=== PATIENT | male | born 1965 | race Caucasian/White ===

== ENCOUNTER → 2016-08-22 | Outpatient (CLI) | payer OTHER ==
[~2016-08-22] MED LIST: ACET-1256 PO; CALC500C3 PO; CLC100 PO; CYAN100020 PO; FERR1TAB13 PO; FRRS300 PO; IBUP-1050 PO; IRON PO; OMEP40CA41 PO; PRLSR20 PO; PRT/20 PO; PRT40 PO; RANI300T2 PO; SUCR1TAB PO
[2016-08-22 13:33] LABS: BASO % 0.7 %; BASO ABS # 0.04 K/uL (0-0.2); COMPLETE YES; EOS % 5.3 %; HEMATOCRIT 43.5 % (42-52); IG% 0.2 %; LYMPH % 29.3 %; LYMPH ABS # 1.67 K/uL (1.2-3.4); MEAN CELL VOLUME 83.5 fL (80-100); MEAN CORPUSCULAR HGB CONC 33.6 g/dl (32-36); MEAN PLATELET VOLUME 11.9 fL (7.4-10.4); MONO % 9.1 %; NEUT % 55.4 %; PLATELET COUNT 243 K/uL (130-400); RED BLOOD COUNT 5.21 M/uL (4.7-6.1); WHITE BLOOD COUNT 5.69 K/uL (4.8-10.8)
[2016-08-22 14:46] LABS: FERRITIN 8.5 ng/ml (8.0-388.0)
== END | disposition home or self-care (01) ==
LOC: C.LABBC 09:19
PROVIDERS: ATTEND Internal Medicine
DX: D64.9 Anemia, unspecified (principal)

== ENCOUNTER → 2016-11-10 | Outpatient (CLI) | payer OTHER ==
[~2016-11-10] MED LIST changes: -CYAN100020 PO; -FERR1TAB13 PO; -FRRS300 PO; -IRON PO; -OMEP40CA41 PO; -PRT/20 PO; -PRT40 PO; -RANI300T2 PO; -SUCR1TAB PO
[2016-11-10 10:29] LABS: ALT/SGPT 30 U/L (12-78); BLOOD UREA NITROGEN 15 mg/dl (7-18); BUN/CREATININE RATIO 15.4 (10-20); CALCIUM 9.1 mg/dl (8.5-10.1); CARBON DIOXIDE 27 mmol/L (21-32); CHLORIDE 103 mmol/L (98-107); CREATININE 0.95 mg/dl (0.60-1.40); GLUCOSE 85 mg/dl (70-99); MAGNESIUM 2.2 mg/dl (1.8-2.4); POTASSIUM 3.8 mmol/L (3.5-5.1); SODIUM 138 mmol/L (136-145)
[2016-11-10 10:39] LABS: ALB/GLOB RATIO 1.1 (0.9-2); ALKALINE PHOSPHATASE 106 U/L (45-117); AST/SGOT 23 U/L (15-37); THYROID STIMULATING HORMONE 0.932 uIu/ml (0.300-4.500)
[2016-11-10 12:42] LABS: LYME DISEASE AB IGG NEG (NEG)
[2016-11-10 12:46] LABS: LYME DISEASE AB IGM NEG (NEG)
== END | disposition home or self-care (01) ==
LOC: C.LAB1850 08:57
PROVIDERS: ATTEND Internal Medicine
DX: R00.2 Palpitations (principal)

== ENCOUNTER 2016-11-29 15:26 | Inpatient (IN) | payer OTHER ==
[~2016-11-29] VITALS: Ht 182.9 cm; Wt 77.6 kg
[2016-11-29] MEDS ORDERED: ONDANSETRON INJ 2 MG/ML 2 ML VIAL IV STA (15:41)
[2016-11-29] MEDS ORDERED: SODIUM CHLORIDE 0.9% 1000ML 1,000 ML IV STA (15:41)
[2016-11-29] MEDS ORDERED: PANTOprazole INJ 80 MG in DEXTROSE 5% 100ML IV ONE (15:45)
[2016-11-29] MEDS ORDERED: OCTREOTIDE ACETATE INJ 500 MCG in NSS 100ML IV SCH ×2 (15:45→20:00)
[2016-11-29] MEDS ORDERED: CYAN100020 PO (15:53)
[2016-11-29] MEDS ORDERED: RANI300T2 PO (15:53)
[2016-11-29] MEDS ORDERED: OCTREOTIDE ACETATE INJ 100 MCG in SYRINGE 9 ML IV ONE (15:57)
[2016-11-29 15:58] LABS: ISTAT CREATININE 0.8 mg/dl (0.6-1.3); ISTAT HEMOGLOBIN 13.6 g/dl (14.0-18.0); ISTAT IONIZED CALCIUM 1.15 mmol/l (1.12-1.32)
--- NOTE | 2016-11-29 15:58 | DIAGNOSTIC IMAGING REPORT ---
CHEST ONE VIEW PORTABLE HISTORY: Syncope. EVALUATE GI BLEED COMPARISON: Chest 05/03/2015. FINDINGS: The lungs are clear. Cardiac silhouette is normal in size. No pleural effusions. No pneumothorax. IMPRESSION: No acute process. Electronically signed by: Jaime Alcantara M.D. 11/29/2016 3:57 PM Dictated Date/Time: 11/29/2016 3:56 PM
[2016-11-29 16:02] LABS: BASO % 0.3 %; BASO ABS # 0.03 K/uL (0-0.2); COMPLETE YES; EOS % 0.4 %; HEMATOCRIT 40.3 % (42-52); IG% 0.4 %; LYMPH % 18.8 %; LYMPH ABS # 2.11 K/uL (1.2-3.4); MEAN CORPUSCULAR HEMOGLOBIN 27.5 pg (25-34); MEAN CORPUSCULAR HGB CONC 32.8 g/dl (32-36); MEAN PLATELET VOLUME 12.5 fL (7.4-10.4); MONO % 3.6 %; NEUT % 76.5 %; PLATELET COUNT 289 K/uL (130-400); WHITE BLOOD COUNT 11.25 K/uL (4.8-10.8)
[2016-11-29 16:13] LABS: INR 1.1 (0.9-1.1); PARTIAL THROMBOPLASTIN RATIO 0.9
[2016-11-29] MEDS: PANTOprazole INJ 40 MG in DEXTROSE 5% 100ML IV SCH ×2 (16:16→20:04)
[2016-11-29 16:21] LABS: ALT/SGPT 29 U/L (12-78); BLOOD UREA NITROGEN 48 mg/dl (7-18); BUN/CREATININE RATIO 51.8 (10-20); CALCIUM 8.6 mg/dl (8.5-10.1); CARBON DIOXIDE 25 mmol/L (21-32); CHLORIDE 103 mmol/L (98-107); CREATININE 0.92 mg/dl (0.60-1.40); GLUCOSE 151 mg/dl (70-99); POTASSIUM 3.7 mmol/L (3.5-5.1); SODIUM 138 mmol/L (136-145)
[2016-11-29 16:26] LABS: ALKALINE PHOSPHATASE 84 U/L (45-117); AST/SGOT 19 U/L (15-37); CKMB/CK RATIO 1.7 (0-3.0)
--- NOTE | 2016-11-29 16:34 | Gastrointestinal Consultation ---
Gastrointestinal Consultation Date of Consultation: Nov 29, 2016 Attending Physician: Dr. Costello Consulting Physician: Dr. 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 Pt transferred here, was hypotensive and had another syncopal event as well as hematemesis. He denies NSAID use last EGD 07/2015 showed [place] I with erosion and friable mucosa of note, pt stopped PPI and has now been on Ranitidine 300mg BID, recently decreased to 150mg TID over the past week due to some associated gas, bloating. He reports stopping PPI due to recent data on renal issues. Pt otherwise healthy, denies abdominal pain or weight loss, bowels were regular until this morning. Hgb 13 on presentation with elevated BUN concerning for UGI bleed. IV protonix and octreotide have been ordered. Past Medical/Surgical History GIST tumor resected 2014 Past Medical History: GIST tumor 2014 Past Surgical History: GIST tumor resected 01/2015 colonoscopy/EGD Family History No pertinent family history Social History Smoking Status: Never Smoker Alcohol Use: none Drug Use: none Marital Status: Housing Status: lives with family Occupation Status: employed Allergies Coded Allergies: Penicillins (Unverified Allergy, Unknown, RASH, 05/03/15) Current Medications Home Meds and Scripts Medications Dose Route/Sig Max Daily Dose Days Date Category Vitamin B12 (Cyanocobalamin) 1,000 Mcg Tab 1,000 Mg PO DAILY 11/29/16 Reported Zantac (Ranitidine HCl) 300 Mg Tab 300 Mg PO BID 11/29/16 Reported Review of Systems Constitutional: + see HPI, + sweats, No fever, No chills Eyes: No problem reported Respiratory: No shortness of breath Cardiac: No chest pain Abdomen: + see HPI Musculoskeletal: No problem reported Neuro: + see HPI, + weakness Psych: No problem reported Heme: + see HPI Skin: No rash Physical Exam Date Time Temp Pulse Resp B/P (MAP) Pulse Ox O2 Delivery O2 Flow Rate FiO2 11/29/16 15:47 Room Air 11/29/16 15:29 36.3 105 16 96/68 98 Room Air General Appearance: + pertinent finding (50yo male, pale, NAD, coffee ground emesis noted on pants, examined in ED) Eyes: PERRL ENT: hearing grossly normal Neck: supple Respiratory/Chest: lungs clear, normal breath sounds, no respiratory distress, no accessory muscle use Cardiovascular: regular rate, rhythm Abdomen: normal bowel sounds, non tender, soft Extremities: no pedal edema Neurologic/Psych: alert, normal mood/affect, oriented x 3 Skin: + pallor, + pertinent finding (contusion noted on forehead) Laboratory Results Last 24 Hours Test 11/29/16 15:40 11/29/16 15:41 11/29/16 15:44 White Blood Count 11.25 K/uL Red Blood Count 4.80 M/uL Hemoglobin 13.2 g/dL Hematocrit 40.3 % Mean Corpuscular Volume 84.0 fL Mean Corpuscular Hemoglobin 27.5 pg Mean Corpuscular Hemoglobin Concent 32.8 g/dl Platelet Count 289 K/uL Mean Platelet Volume 12.5 fL Neutrophils (%) (Auto) 76.5 % Lymphocytes (%) (Auto) 18.8 % Monocytes (%) (Auto) 3.6 % Eosinophils (%) (Auto) 0.4 % Basophils (%) (Auto) 0.3 % Neutrophils # (Auto) 8.62 K/uL Lymphocytes # (Auto) 2.11 K/uL Monocytes # (Auto) 0.40 K/uL Eosinophils # (Auto) 0.05 K/uL Basophils # (Auto) 0.03 K/uL RDW Standard Deviation 40.8 fL RDW Coefficient of Variation 13.4 % Immature Granulocyte % (Auto) 0.4 % Immature Granulocyte # (Auto) 0.04 K/uL Prothrombin Time 12.0 SECONDS Prothromb Time International Ratio 1.1 Activated Partial Thromboplast Time 22.4 SECONDS Partial Thromboplastin Ratio 0.9 Creatine Kinase MB Ratio Bedside Hemoglobin 13.6 g/dl Bedside Hematocrit 40 % Bedside Sodium 137 mEq/L Bedside Potassium 3.7 mEq/L Bedside Chloride 102 mEq/L Bedside Total CO2 21 mEq/l Anion Gap 19.0 mmol/L Bedside Blood Urea Nitrogen 44 mg/dl Bedside Creatinine 0.8 mg/dl Bedside Glucose (other) 158 mg/dl Bedside Ionized Calcium (Christiano) 1.15 mmol/l Impression Patient is a 50 year old male with hx of GIST tumor s/p resection admitted with melena, syncope and hematemesis Plan Findings consistent with UGI bleed, consider anastomotic ulcer IV protonix and octreotide started in ED Pt seen in conjunction with Dr. Ma NPO fluid resuscitation as appropriate trend h/h, transfuse PRN urgent EGD in AM or sooner by resident surgeon GI MD if needed. I saw and evaluated the patient. He reports having an episode of dark sticky stool this morning followed by a fainting episode while at work today. He presented to the emergency room this afternoon with an episode of coffee-ground emesis and another fainting episode. Given the constellation of symptoms I would wonder about an upper gastrointestinal bleed. Given his recurrent syncopal episodes I believe the patient would benefit from volume resuscitation today and urgent endoscopy on Monday. Physical examination No obvious distress, patient with mild pallor No abdominal tenderness Impression: Patient presenting with symptoms most consistent with an upper GI bleed. I wonder if he may have an anastomotic ulcer given his prior surgical history. As this is his second bleeding episode I would suggest long-term use of a proton pump inhibitor as an outpatient. At this point, the patient will benefit from aggressive volume resuscitation and endoscopy once more clinically stable. Recommendations Nothing by mouth Please begin a Protonix drip with an 80 mg bolus Avoid nonsteroidals Serial CBCs Please give volume resuscitation Please call with any questions or concerns
[2016-11-29] MEDS ORDERED: SODIUM CHLORIDE 0.9% 500ML 500 ML IV STA (16:41)
[2016-11-29] MEDS ORDERED: ACETAMINOPHEN 325 MG TAB PO PRN (16:45)
[2016-11-29] MEDS ORDERED: OCTREOTIDE IV BOLUS & DRIP IV STA (16:51)
--- NOTE | 2016-11-29 17:01 | EMERGENCY ROOM VISIT NOTE ---
History Report prepared by Roel: Facundo Cheema Under the Supervision of: Dr. Johnson Costello D.O. First contact with patient: 15:35 Chief Complaint: SYNCOPE Stated Complaint: FAINTED, SWEATS, BLOOD IN STOOL History of Present Illness The patient is a 50 year old male with a history of a gastrointestinal stromal tumor removal who presents to the Emergency Room with complaints of a persistent illness that started this morning. He says that he woke up this morning and started feeling sweaty and lightheaded at breakfast, in addition to being a bit dizzy. The patient notes that he had dark black stool this morning which is indicative of blood in his stool. He says that he went to work this afternoon, and passed out in the bathroom, and hit his head. The patient vomited blood while waiting in triage. He says that this was the first time he vomited today. He currently denies any pain other than his head from the fall. The patient says that his symptoms today feel consistent with his previous GI bleed. Source of History: patient Onset: This morning Position: other (global - illness) Timing: other (persistent) Associated Symptoms: + LOC, + headache, + diaphoresis, + vomiting (blood), + hematochezia Note: Associated symptoms: Lightheaded, dizzy. Denies any pain other than on head from fall. Review of Systems See HPI for pertinent positives & negatives. A total of 10 systems reviewed and were otherwise negative. Past Medical & Surgical Medical Problems: (1) Gastrointestinal stromal tumor (2) GI bleed Surgical Problems: (1) H/O abdominal surgery Family History No pertinent family history Social History Smoking Status: Never Smoker Alcohol Use: none Drug Use: none Marital Status: Housing Status: lives with family Occupation Status: employed Current/Historical Medications Scheduled Cyanocobalamin (Vitamin B12), 1,000 MG PO DAILY Ranitidine Hcl (Zantac), 300 MG PO BID Allergies Coded Allergies: Penicillins (Unverified Allergy, Unknown, RASH, 05/03/15) Physical Exam Vital Signs Date Time Temp Pulse Resp B/P (MAP) Pulse Ox O2 Delivery O2 Flow Rate FiO2 11/29/16 16:24 67 20 109/82 98 Room Air 11/29/16 15:47 Room Air 11/29/16 15:29 36.3 105 16 96/68 98 Room Air Physical Exam CONSTITUTIONAL/VITAL SIGNS: Reviewed / noted above. GENERAL: Some bloody emesis on pants from vomiting in ED. INTEGUMENTARY: Warm, dry, and [place]. HEAD: Normocephalic. EYES: without scleral icterus or trauma. ENT/OROPHARYNX: clear and moist. LYMPHADENOPATHY/NECK: Is supple without lymphadenopathy or meningismus. RESPIRATORY: Lungs clear and equal. CARDIOVASCULAR: Regular rate and rhythm. GI/ABDOMEN: Soft and nontender. No organomegaly or pulsatile mass. No rebound or guarding. Normal bowel sounds. EXTREMITIES: Warm and well perfused. BACK: No CVA tenderness. NEUROLOGICAL: Intact without focal deficits. PSYCHIATRIC: normal affect. MUSCULOSKELETAL: Normally developed with good muscle tone. Medical Decision & Procedures ER Provider Diagnostic Interpretation: X ray results and stated below per my interpretation and radiology interpretation. CHEST ONE VIEW PORTABLE HISTORY: Syncope. EVALUATE GI BLEED COMPARISON: Chest 05/03/2015. FINDINGS: The lungs are clear. Cardiac silhouette is normal in size. No pleural effusions. No pneumothorax. IMPRESSION: No acute process. Electronically signed by: Jaime Alcantara M.D. 11/29/2016 3:57 PM Dictated Date/Time: 11/29/2016 3:56 PM Laboratory Results 11/29/16 15:40 Red Blood Count 4.80, Mean Corpuscular Volume 84.0, Mean Corpuscular Hemoglobin 27.5, Mean Corpuscular Hemoglobin Concent 32.8, Mean Platelet Volume 12.5, Neutrophils (%) (Auto) 76.5, Lymphocytes (%) (Auto) 18.8, Monocytes (%) (Auto) 3.6, Eosinophils (%) (Auto) 0.4, Basophils (%) (Auto) 0.3, Neutrophils # (Auto) 8.62, Lymphocytes # (Auto) 2.11, Monocytes # (Auto) 0.40, Eosinophils # (Auto) 0.05, Basophils # (Auto) 0.03 11/29/16 15:40 Test 11/29/16 15:40 11/29/16 15:44 White Blood Count 11.25 K/uL (4.8-10.8) Red Blood Count 4.80 M/uL (4.7-6.1) Hemoglobin 13.2 g/dL (14.0-18.0) Hematocrit 40.3 % (42-52) Mean Corpuscular Volume 84.0 fL (80-100) Mean Corpuscular Hemoglobin 27.5 pg (25-34) Mean Corpuscular Hemoglobin Concent 32.8 g/dl (32-36) Platelet Count 289 K/uL (130-400) Mean Platelet Volume 12.5 fL (7.4-10.4) Neutrophils (%) (Auto) 76.5 % Lymphocytes (%) (Auto) 18.8 % Monocytes (%) (Auto) 3.6 % Eosinophils (%) (Auto) 0.4 % Basophils (%) (Auto) 0.3 % Neutrophils # (Auto) 8.62 K/uL (1.4-6.5) Lymphocytes # (Auto) 2.11 K/uL (1.2-3.4) Monocytes # (Auto) 0.40 K/uL (0.11-0.59) Eosinophils # (Auto) 0.05 K/uL (0-0.5) Basophils # (Auto) 0.03 K/uL (0-0.2) RDW Standard Deviation 40.8 fL (36.4-46.3) RDW Coefficient of Variation 13.4 % (11.5-14.5) Immature Granulocyte % (Auto) 0.4 % Immature Granulocyte # (Auto) 0.04 K/uL (0.00-0.02) Prothrombin Time 12.0 SECONDS (9.0-12.0) Prothromb Time International Ratio 1.1 (0.9-1.1) Activated Partial Thromboplast Time 22.4 SECONDS (21.0-31.0) Partial Thromboplastin Ratio 0.9 Est Creatinine Clear Calc Drug Dose 103.0 ml/min Estimated GFR () 110.4 Estimated GFR (Non- 95.3 BUN/Creatinine Ratio 51.8 (10-20) Calcium Level 8.6 mg/dl (8.5-10.1) Total Bilirubin 2.6 mg/dl (0.2-1) Direct Bilirubin 0.3 mg/dl (0-0.2) Aspartate Amino Transf (AST/SGOT) 19 U/L (15-37) Alanine Aminotransferase (ALT/SGPT) 29 U/L (12-78) Alkaline Phosphatase 84 U/L (45-117) Total Creatine Kinase 78 U/L (39-308) Creatine Kinase MB 1.3 ng/ml (0.5-3.6) Creatine Kinase MB Ratio 1.7 (0-3.0) Troponin I < 0.015 ng/ml (0-0.045) Total Protein 7.0 gm/dl (6.4-8.2) Albumin 3.7 gm/dl (3.4-5.0) Lipase 129 U/L (73-393) Bedside Hemoglobin 13.6 g/dl (14.0-18.0) Bedside Hematocrit 40 % (42-52) Bedside Sodium 137 mEq/L (135-144) Bedside Potassium 3.7 mEq/L (3.3-5.0) Bedside Chloride 102 mEq/L (101-112) Bedside Total CO2 21 mEq/l (24-31) Anion Gap 19.0 mmol/L (16-25) Bedside Blood Urea Nitrogen 44 mg/dl (7-18) Bedside Creatinine 0.8 mg/dl (0.6-1.3) Bedside Glucose (other) 158 mg/dl (70-99) Bedside Ionized Calcium (Christiano) 1.15 mmol/l (1.12-1.32) Laboratory results as stated above per my review. Medications Administered Medications (Trade) Dose Ordered Sig/Esther Route Start Time Stop Time Status Last Admin Dose Admin Pantoprazole Sodium 80 mg/ Dextrose 120 ml @ 480 mls/hr NOW ONCE IV 11/29/16 15:45 11/29/16 15:59 DC 11/29/16 16:13 480 MLS/HR Pantoprazole Sodium 40 mg/ Dextrose 100 ml @ 20 mls/hr Q5H IV 11/29/16 16:00 11/29/16 20:59 11/29/16 16:16 20 MLS/HR Sodium Chloride 1,000 ml @ 999 mls/hr Q1H1M STAT IV 11/29/16 15:41 11/29/16 16:41 DC 11/29/16 15:45 999 MLS/HR Ondansetron HCl (Zofran Inj) 4 mg NOW STAT IV 11/29/16 15:41 11/29/16 15:48 DC 11/29/16 16:10 4 MG Octreotide Acetate 100 mcg/ Syringe 10 ml @ 3 mls/min NOW ONCE IV 11/29/16 15:57 11/29/16 16:00 DC 11/29/16 16:15 3 MLS/MIN Octreotide Acetate 500 mcg/ Sodium Chloride 105 ml @ 10 mls/hr [id number] IV 11/29/16 15:45 11/29/16 16:18 DC 11/29/16 16:16 10 MLS/HR ED Course 1535: Previous medical records were reviewed. The patient was evaluated in room A9B. A complete history and physical examination was performed. 1545: Ordered Pantoprazole Sodium 80 mg/Dextrose 120 ml @ 480 mls/hr IV. 1553: I discussed the patient with [facility] with Dr. Ma - she said that they will look at the patient. 1557: Ordered Octreotide Acetate 100 mcg/Syringe 10 ml @ 3 mls/min IV. 1600: Ordered Pantoprazole Sodium 40 mg/Dextrose 100 ml @ 20 mls/hr IV. 1615: I reevaluated the patient and he is resting comfortably. The patient verbally expressed understanding and agreement with the treatment plan. The patient will be evaluated for further treatment. 1620: I discussed the patient with Dr. Mcclain - [facility] [place] [facility] hospitalist - he will evaluate the patient for further treatment. Medical Decision Differential includes acute cardiac dysrhythmia, microinfarction, CVA, TIA, dehydration, anemia, electrolyte disturbance, seizure, trauma, intracranial bleeding, acute vascular catastrophe, thoracic aortic dissection, PE, abdominal aortic aneurysm rupture. This is a 50-year-old male who presents to the ED with a chief complaint of a syncopal episode. The patient states that he awoke this morning and noticed some dark black tarry stools. He states that he felt a little dizzy. While he was at work, he had a syncopal episode. He came in here and vomited some blood. The patient states that he had a GIST (GI tumor) removed in 2014. The patient states that he has been fine since that time. He states that he has not had much of an appetite all day today. Initial blood pressure was in the high 90s and his heart rate was tachycardic with a heart rate of 105. The patient's hemoglobin is 13.2 and the BUN is in the 40s. The patient was treated with IV Protonix bolus and drip. He was given a liter of normal saline IV. The patient was seen by Dr. Ma in the emergency department. He plans on endoscopy tomorrow. We initially ordered octreotide but he did not feel this was necessary and therefore it was discontinued. The patient will be seen by the hospitalist as well for admission. Head Trauma GCS Score: 15 Medication Reconcilliation Current Medication List: was personally reviewed by me Blood Pressure Screening Patient's blood pressure: Normal blood pressure Consults Time Called: 1550 Consulting Physician: [facility] Returned Call: 1553 I discussed the patient with [facility] with Dr. Ma - she said that they will look at the patient. Additional Consults: Time Called: 1615 Consulted Physician: Dr. Sarahi CARDONA hospitalist Returned Call: 1620 Additional Comments: I discussed the patient with Dr. Sarahi CARDONA hospitalist - he will evaluate the patient for further treatment. Impression Primary Impression: Upper GI bleed Scribe Attestation The scribe's documentation has been prepared under my direction and personally reviewed by me in its entirety. I confirm that the note above accurately reflects all work, treatment, procedures, and medical decision making performed by me. Departure Information Dispostion Being Evaluated By Hospitalist Referrals Kyrie Romero M.D. (PCP) Patient Instructions My [facility]
--- NOTE | 2016-11-29 17:02 | History and Physical ---
History & Physical Date & Time of Service: Nov 29, 2016 at 16:54 Chief Complaint: Fainted, Sweats, Blood In Stool Primary Care Physician: Kyrie Romero M.D. History of Present Illness Source: patient, family, clinic records, hospital records This patient is a 50-year-old male that presents emergency department with complaints of feeling lightheaded, dizzy and clammy that started this morning when he woke up. The patient had a bowel movement, and notes that it was black. The patient laid down to rest and felt slightly better. Immediately upon standing, his symptoms returned. Upon arrival into the emergency department, the patient had a syncopal episode and an episode of coffee-ground emesis. The patient has a history of GIST status post partial gastrectomy and gastrojejunostomy in January 2015. He did have a postoperative GI bleed. The patient does not take a PPI. He does take Zantac BID. He denies any infectious etiology such as fever or chills. He denies any abdominal pain. No recent illnesses. He reports doing perfectly fine yesterday. Past Medical/Surgical History Medical Problems: (1) Gastrointestinal stromal tumor Status: Resolved Surgical Problems: (1) H/O abdominal surgery Status: Chronic Family History No pertinent family history Social History Smoking Status: Never Smoker Smokeless Tobacco Use: No Alcohol Use: none Drug Use: none Marital Status: Housing status: lives with family Occupational Status: employed Immunizations History of Influenza Vaccine: Unknown History of Tetanus Vaccine?: Yes History of Pneumococcal: No History of Hepatitis B Vaccine: Unknown Multi-Drug Resistant Organisms History of MDRO: No Allergies Coded Allergies: Penicillins (Unverified Allergy, Unknown, RASH, 05/03/15) Home Medications Scheduled Cyanocobalamin (Vitamin B12), 1,000 MG PO DAILY Ranitidine Hcl (Zantac), 300 MG PO BID Review of Systems 10 system review performed and negative unless noted in HPI or below Physical Exam Vital Signs Date Time Temp Pulse Resp B/P (MAP) Pulse Ox O2 Delivery O2 Flow Rate FiO2 11/29/16 16:24 67 20 109/82 98 Room Air 11/29/16 15:47 Room Air 11/29/16 15:29 36.3 105 16 96/68 98 Room Air General Appearance: + mild distress (acutely ill in appearance.) Head: normocephalic Eyes: EOMI ENT: + pertinent finding (oral mucosa slightly dry.) Neck: no JVD Respiratory/Chest: lungs clear Cardiovascular: regular rate, rhythm Abdomen/GI: normal bowel sounds, non tender, soft Extremities/Musculoskelatal: no calf tenderness, no pedal edema Neurologic/Psych: no motor/sensory deficits, oriented x 3 Skin: warm/dry Diagnostics Laboratory Results Results Past 24 Hours Test 11/29/16 15:40 11/29/16 15:44 Range/Units White Blood Count 11.25 4.8-10.8 K/uL Red Blood Count 4.80 4.7-6.1 M/uL Hemoglobin 13.2 14.0-18.0 g/dL Hematocrit 40.3 42-52 % Mean Corpuscular Volume 84.0 80-100 fL Mean Corpuscular Hemoglobin 27.5 25-34 pg Mean Corpuscular Hemoglobin Concent 32.8 32-36 g/dl Platelet Count 289 130-400 K/uL Mean Platelet Volume 12.5 7.4-10.4 fL Neutrophils (%) (Auto) 76.5 % Lymphocytes (%) (Auto) 18.8 % Monocytes (%) (Auto) 3.6 % Eosinophils (%) (Auto) 0.4 % Basophils (%) (Auto) 0.3 % Neutrophils # (Auto) 8.62 1.4-6.5 K/uL Lymphocytes # (Auto) 2.11 1.2-3.4 K/uL Monocytes # (Auto) 0.40 0.11-0.59 K/uL Eosinophils # (Auto) 0.05 0-0.5 K/uL Basophils # (Auto) 0.03 0-0.2 K/uL RDW Standard Deviation 40.8 36.4-46.3 fL RDW Coefficient of Variation 13.4 11.5-14.5 % Immature Granulocyte % (Auto) 0.4 % Immature Granulocyte # (Auto) 0.04 0.00-0.02 K/uL Prothrombin Time 12.0 9.0-12.0 SECONDS Prothromb Time International Ratio 1.1 0.9-1.1 Activated Partial Thromboplast Time 22.4 21.0-31.0 SECONDS Partial Thromboplastin Ratio 0.9 Sodium Level 138 136-145 mmol/L Potassium Level 3.7 3.5-5.1 mmol/L Chloride Level 103 98-107 mmol/L Carbon Dioxide Level 25 21-32 mmol/L Anion Gap 10.0 19.0 16-25 mmol/L Blood Urea Nitrogen 48 7-18 mg/dl Creatinine 0.92 0.60-1.40 mg/dl Est Creatinine Clear Calc Drug Dose 103.0 ml/min Estimated GFR () 110.4 Estimated GFR (Non- 95.3 BUN/Creatinine Ratio 51.8 10-20 Random Glucose 151 70-99 mg/dl Calcium Level 8.6 8.5-10.1 mg/dl Total Bilirubin 2.6 0.2-1 mg/dl Direct Bilirubin 0.3 0-0.2 mg/dl Aspartate Amino Transf (AST/SGOT) 19 15-37 U/L Alanine Aminotransferase (ALT/SGPT) 29 12-78 U/L Alkaline Phosphatase 84 45-117 U/L Total Creatine Kinase 78 39-308 U/L Creatine Kinase MB 1.3 0.5-3.6 ng/ml Creatine Kinase MB Ratio 1.7 0-3.0 Troponin I < 0.015 0-0.045 ng/ml Total Protein 7.0 6.4-8.2 gm/dl Albumin 3.7 3.4-5.0 gm/dl Lipase 129 73-393 U/L Bedside Hemoglobin 13.6 14.0-18.0 g/dl Bedside Hematocrit 40 42-52 % Bedside Sodium 137 135-144 mEq/L Bedside Potassium 3.7 3.3-5.0 mEq/L Bedside Chloride 102 101-112 mEq/L Bedside Total CO2 21 24-31 mEq/l Bedside Blood Urea Nitrogen 44 7-18 mg/dl Bedside Creatinine 0.8 0.6-1.3 mg/dl Bedside Glucose (other) 158 70-99 mg/dl Bedside Ionized Calcium (Christiano) 1.15 1.12-1.32 mmol/l Impression Assessment and Plan [id number]-year-old male presented to the emergency department with complaints of diaphoresis and had a syncopal episode with coffee-ground emesis in the emergency department. Symptoms are consistent with an upper GI bleed. Upper GI bleed -Admit to telemetry -GI consult appreciated. NPO octreotide bolus and drip. Protonix bolus and drip. -Plan is for an EGD tomorrow. -IVF -Type and cross-->hold 2 units -Serial H&H DVT prophylaxis -Chemical means contraindicated -TEDS, SCDs CODE STATUS -LEVEL I FULL CODE Attending Addendum: I have physically seen and examined this patient, have directed the physician assistants medical activities, and agree with the H&P as noted above with the following exceptions: NONE The patient is awake, well-developed and adequately nourished, alert and oriented 3, normocephalic and atraumatic, lying in bed and in no acute distress. HEENT--PERRL, EOMI, mucous membranes and oropharynx dry. Neck--supple, no JVD or bruits, thyroid normal, trachea midline, no adenopathy. Heart--normal S1 and S2, no extra beats, no murmurs, rubs or gallops. Lungs--clear bilaterally with good air movement, no respiratory distress, no accessory muscle use. Abdomen--normal bowel sounds and soft, nontender and nondistended, no hernias or masses, no organomegaly. Extremities--no cyanosis, clubbing or edema. There are good distal pulses b/l. Dermatologic--normal skin turgor, normal color, warm and dry, no abnormal lymph nodes, no rash. Neurologic--cranial nerves II through XII grossly intact, motor and sensory examination normal. Rheumatologic--normal range of motion, nontender, muscles and joints. Psychiatric--normal affect. Assessment and Plan: 1. Upper GI bleed/syncopal event/coffee-ground emesis--the patient be admitted to the telemetry unit for close blood pressure monitoring. Protonix bolus and drip. Octreotide bolus and drip Nothing by mouth status Normal saline with KCl 20 mEq 125 ML's per hour Type and screen hold 2 units H&H every 6 hours the next 24 hours. Consult with gastroenterology Dr. Ma is seen patient emergency department and plans for EGD tomorrow. Level of Care Telemetry Advanced Directives Existing Advance Directive: No Existing Living Will: No Existing Power of Online Merchandising Manager: No Resuscitation Status FULL RESUSCITATION VTE Prophylaxis VTE Risk Assessment Done? Y/N: Yes Risk Level: Low Given or contraindicated: T.E.D. Stockings, SCD's, Contraindicated Social Service Consult None Apply
[2016-11-29 19:20] VITALS: BP 132/79; PULSE 81; TEMP 37.1; O2SAT 97; Ht 182.9 cm; Wt 77.6 kg
[2016-11-29] MEDS: NSS + 20MEQ KCL 1000ML 1,000 ML IV SCH (20:04)
[2016-11-29 23:25] VITALS: BP 115/79; PULSE 78; TEMP 37; O2SAT 97
[2016-11-30 00:40] LABS: HEMATOCRIT 34.8 % (42-52)
[2016-11-30] MEDS: NSS + 20MEQ KCL 1000ML 1,000 ML IV SCH ×3 (02:07→17:09)
[2016-11-30] MEDS: PANTOprazole INJ 40 MG in DEXTROSE 5% 100ML IV SCH ×2 (02:08→07:32)
[2016-11-30 04:25] VITALS: BP 112/74; PULSE 73; TEMP 36.7; O2SAT 99
[2016-11-30 06:54] LABS: BASO % 0.5 %; BASO ABS # 0.03 K/uL (0-0.2); COMPLETE YES; EOS % 2.8 %; IG% 0.2 %; LYMPH % 28.4 %; LYMPH ABS # 1.84 K/uL (1.2-3.4); MEAN CELL VOLUME 84.2 fL (80-100); MEAN CORPUSCULAR HEMOGLOBIN 27.5 pg (25-34); MEAN CORPUSCULAR HGB CONC 32.6 g/dl (32-36); MEAN PLATELET VOLUME 12.1 fL (7.4-10.4); MONO % 7.4 %; NEUT % 60.7 %; PLATELET COUNT 241 K/uL (130-400); RED BLOOD COUNT 4.04 M/uL (4.7-6.1); WHITE BLOOD COUNT 6.48 K/uL (4.8-10.8)
[2016-11-30 07:28] LABS: BUN/CREATININE RATIO 31.5 (10-20); CALCIUM 8.1 mg/dl (8.5-10.1); CREATININE 0.8 mg/dl (0.60-1.40); MAGNESIUM 2.2 mg/dl (1.8-2.4); POTASSIUM 4.1 mmol/L (3.5-5.1)
[2016-11-30 07:42] VITALS: BP 115/79; PULSE 64; TEMP 36.6; O2SAT 92
--- NOTE | 2016-11-30 10:41 | Endo History and Physical ---
History & Physical Date of Service: Nov 30, 2016. Chief Complaint: Melena Referring Physician: History of Present Illness The patient had no recurrent hematemesis or melena last evening. He notes no abdominal pain today. He presents for upper endoscopy this morning. Past Medical History Other Past Surgical History Hx Cardiac Surgery: No Hx Internal Defibrillator: No Hx Pacemaker: No Hx Abdominal Surgery: Yes (Bowel resection) Hx Post-Op Nausea and Vomiting: No Hx Cancer Surgery: No Hx Thoracic Surgery: No Hx Orthopedic: No Hx Urinary Tract Surgery: No Social History Smoking Status: Never Smoker Hx Substance Use: No Hx Alcohol Use: No Allergies Coded Allergies: Penicillins (Unverified Allergy, Unknown, RASH, 05/03/15) Current Medications Reported Home Medications Medications Dose Route/Sig Max Daily Dose Days Date Category Vitamin B12 (Cyanocobalamin) 1,000 Mcg Tab 1,000 Mg PO DAILY 11/29/16 Reported Zantac (Ranitidine HCl) 300 Mg Tab 300 Mg PO BID 11/29/16 Reported Vital Signs Weight (Kilograms): 77.700 Height (Feet): 6 Height (Inches): 0.00 Date Time Temp Pulse Resp B/P (MAP) Pulse Ox O2 Delivery O2 Flow Rate FiO2 11/30/16 10:38 36.7 99 18 130/86 (101) 99 Room Air 11/30/16 07:42 36.6 64 18 115/79 (91) 92 Room Air 11/30/16 04:25 36.7 73 16 112/74 (87) 99 Room Air 11/30/16 04:00 Room Air 11/29/16 23:59 Room Air 11/29/16 23:25 37.0 78 16 115/79 (91) 97 Room Air 11/29/16 19:20 37.1 81 20 132/79 97 Room Air 11/29/16 18:49 75 20 111/63 97 11/29/16 18:00 79 20 107/76 97 Room Air 11/29/16 16:24 67 20 109/82 98 Room Air 11/29/16 15:47 Room Air 11/29/16 15:29 36.3 105 16 96/68 98 Room Air Physical Exam General Appearance: no apparent distress Respiratory/Chest: Auscultation: breath sounds normal Cardiovascular: Heart Auscultation: RRR Abdomen: Inspection & Palpation: soft Assessment and Plan Upper endoscopy to evaluate a history of melena and coffee-ground emesis. We are planning to do upper endoscopy this morning. Discussed the risks and benefits to include bleeding, infection, perforation, pain and need for follow- up studies.
[2016-11-30] MEDS ORDERED: LIDOCAINE HCL 2% 2 ML VIAL (20MG/ML) ONE (11:34)
[2016-11-30] MEDS ORDERED: PROPOFOL IV EMULSION 10 MG/ML 20 ML VIAL IV ONE (11:34)
--- NOTE | 2016-11-30 11:42 | GI REPORT ---
Procedure Date: 11/30/2016 11:06 AM Procedure: Upper GI endoscopy Indications: Coffee-ground emesis, Melena Medicines: Monitored Anesthesia Care Complications: No immediate complications. Estimated blood loss: Minimal. Estimated Blood Loss: Estimated blood loss was minimal. Procedure: Pre-Anesthesia Assessment: - Prior to the procedure, a History and Physical was performed, and patient medications, allergies and sensitivities were reviewed. The patient's tolerance of previous anesthesia was reviewed. - The risks and benefits of the procedure and the sedation options and risks were discussed with the patient. All questions were answered and informed consent was obtained. - Patient identification and proposed procedure were verified prior to the procedure by the physician, the nurse and the web manager. The procedure was verified in the procedure room. - Pre-procedure physical examination revealed no contraindications to sedation. - ASA Grade Assessment: III - A patient with severe systemic disease. - After reviewing the risks and benefits, the patient was deemed in satisfactory condition to undergo the procedure. - The anesthesia plan was to use monitored anesthesia care (MAC). - Immediately prior to administration of medications, the patient was re-assessed for adequacy to receive sedatives. - The heart rate, respiratory rate, oxygen saturations, blood pressure, adequacy of pulmonary ventilation, and response to care were monitored throughout the procedure. - The physical status of the patient was re-assessed after the procedure. After obtaining informed consent, the endoscope was passed under direct vision. Throughout the procedure, the patient's blood pressure, pulse, and oxygen saturations were monitored continuously. The On-site loaner was introduced through the mouth, and advanced to the jejunum. The upper GI endoscopy was accomplished without difficulty. The patient tolerated the procedure well. Findings: The examined esophagus was normal. Normal mucosa was found in the entire examined stomach. Biopsies were taken with a cold forceps for histology. Estimated blood loss was minimal. Evidence of a patent Billroth I gastroduodenostomy was found. The gastrojejunal anastomosis was characterized by clean based ulceration. This was traversed. A single dark spot with no bleeding and stigmata of recent bleeding (visible vessel) was found on the anterior wall of the gastric body adjacent to the gastric anastomosis. Area was successfully injected with 1.5 mL of a 1:10,000 solution of epinephrine for drug delivery. Coagulation for hemostasis using 7 fr multipolar probe was successful. Estimated blood loss was minimal. Impression: - Normal esophagus. - Normal mucosa was found in the entire stomach. Biopsied. - Patent Billroth I gastroduodenostomy was found, characterized by ulceration at the jejunal anastomosis. - A single spot (visible vessel) with no bleeding in the stomach. Injected. Treated with a monopolar probe. Recommendation: - [facility]. - Full liquid diet today. - Use Protonix (pantoprazole) 40 mg PO BID for 4 weeks. The Protonix 20 mg per day thereafter. - Repeat EGD in 12 weeks. Berkley Ma D.O. Berkley Ma, 11/30/2016 11:41:25 AM This report has been signed electronically. Note Initiated On: 11/30/2016 11:06 AM I attest to the content of the Intraoperative Record and orders documented therein, exceptions below
[2016-11-30 12:22] VITALS: BP 129/81; PULSE 59; TEMP 36.4; O2SAT 98
--- NOTE | 2016-11-30 12:31 | Anesthesiology Progress Note ---
Anesthesia Post Op Note Date & Time Nov 30, 2016 at 12:31 Vital Signs Pain Intensity: 0 Vital Signs Past 12 Hours Date Time Temp Pulse Resp B/P (MAP) Pulse Ox O2 Delivery O2 Flow Rate FiO2 11/30/16 12:22 36.4 59 16 129/81 (97) 98 Room Air 11/30/16 12:00 69 20 110/78 (89) 97 Room Air 11/30/16 11:45 66 20 112/76 (88) 100 Room Air 11/30/16 11:30 84 20 101/67 (78) 96 Room Air 11/30/16 10:38 36.7 99 18 130/86 (101) 99 Room Air 11/30/16 08:00 Room Air 11/30/16 07:42 36.6 64 18 115/79 (91) 92 Room Air 11/30/16 04:25 36.7 73 16 112/74 (87) 99 Room Air 11/30/16 04:00 Room Air Notes Mental Status: alert / awake / arousable, participated in evaluation Pt Amnestic to Procedure: Yes Nausea / Vomiting: adequately controlled Pain: adequately controlled Airway Patency, RR, SpO2: stable & adequate BP & HR: stable & adequate Hydration State: stable & adequate Anesthetic Complications: no major complications apparent
[2016-11-30 12:52] LABS: HEMATOCRIT 35.1 % (42-52)
--- NOTE | 2016-11-30 12:53 | Progress Note ---
Progress Note Date of Service Nov 30, 2016. Progress Note Please see endoscopy result for full details of today's procedure. A clean- based ulcer was noted at the gastrojejunal anastomosis. A visible vessel was also seen within the stomach. This visible vessel was treated with epinephrine injection and cautery therapy. Recommendations Full liquid diet today Protonix 40 twice daily for 4 weeks then 20 mg daily thereafter Repeat upper endoscopy in 12 weeks Biopsies taken from the stomach for H. pylori screening If patient without evidence of rebleeding tomorrow may consider early discharge
[2016-11-30 16:08] VITALS: BP 140/90; PULSE 68; TEMP 36.7; O2SAT 98
--- NOTE | 2016-11-30 16:20 | Medical Student: [facility] ---
Med Student History & Physical Date & Time of Service: Nov 30, 2016 at 16:03 Chief Complaint: Gi Bleed Primary Care Physician: Kyrie Romero M.D. 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 At admission to the ER he had an episode of coffee ground emesis and syncope. Denies n/v/d, chest pain, numbness or tingling. Past Medical/Surgical History Medical Problems: (1) Upper GI bleed Status: Acute Family History Notable for heart disease, GI cancer, skin cancer Social History Smoking Status: Never Smoker Smokeless Tobacco Use: No Alcohol Use: none (none since GI surgery a year ago. Prior to this would drink rarely) Drug Use: none Marital Status: Housing status: lives with family Occupational Status: employed Immunizations History of Influenza Vaccine: Unknown History of Tetanus Vaccine?: Yes History of Pneumococcal: No History of Hepatitis B Vaccine: Unknown Allergies Coded Allergies: Penicillins (Unverified Allergy, Unknown, RASH, 05/03/15) Medications Cyanocobalamin (Vitamin B12), 1,000 MG PO DAILY Ferrous Sulfate (Ferrous Sulfate), 325 MG PO BID Pantoprazole (Pantoprazole Sodium), 40 MG PO BID Pantoprazole Sodium (Protonix), 1 TAB PO QAM Review of Systems Constitutional: No fever, No chills, No weakness, No fatigue, No problem reported ENT: No unusual epistaxis, No sore throat Respiratory: No cough, No wheezing, No shortness of breath, No hemoptysis Cardiovascular: + palpitations, No chest pain, No edema, No claudication, No problem reported Abdomen: + GI bleeding, No pain, No nausea, No vomiting, No diarrhea, No constipation, No problem reported Physical Exam Vital Signs (24 Hours) Date Time Temp Pulse Resp B/P (MAP) Pulse Ox O2 Delivery O2 Flow Rate FiO2 11/30/16 12:30 Room Air 11/30/16 12:22 36.4 59 16 129/81 (97) 98 Room Air 11/30/16 12:00 69 20 110/78 (89) 97 Room Air 11/30/16 11:45 66 20 112/76 (88) 100 Room Air 11/30/16 11:30 84 20 101/67 (78) 96 Room Air 11/30/16 10:38 36.7 99 18 130/86 (101) 99 Room Air 11/30/16 08:00 Room Air 11/30/16 07:42 36.6 64 18 115/79 (91) 92 Room Air 11/30/16 04:25 36.7 73 16 112/74 (87) 99 Room Air 11/30/16 04:00 Room Air 11/29/16 23:59 Room Air 11/29/16 23:25 37.0 78 16 115/79 (91) 97 Room Air 11/29/16 19:20 37.1 81 20 132/79 97 Room Air 11/29/16 18:49 75 20 111/63 97 11/29/16 18:00 79 20 107/76 97 Room Air 11/29/16 16:24 67 20 109/82 98 Room Air General Appearance: WD/WN, no apparent distress Head: normocephalic, + evidence of trama (some scrapes and scabbing present on the head) ENT: hearing grossly normal, pharynx normal Neck: no JVD, trachea midline Respiratory/Chest: chest non-tender, lungs clear, normal breath sounds, no respiratory distress, no accessory muscle use Cardiovascular: regular rate, rhythm, no edema, no gallop, no JVD, no murmur, normal peripheral pulses Abdomen/GI: non tender, soft, no organomegaly, no pulsatile mass, + abnormal bowel sounds (hypoactive) Extremities/Musculoskelatal: normal capillary refill, no pedal edema, non- tender Neurologic/Psych: alert, normal mood/affect, oriented x 3 Skin: normal color, warm/dry No conjunctival pallor Diagnostics Laboratory Results Results Past 24 Hours Test 11/29/16 19:52 11/30/16 00:31 11/30/16 06:24 11/30/16 12:37 Range/Units Hemoglobin 12.8 11.7 11.1 11.5 14.0-18.0 g/dL Hematocrit 37.0 34.8 34.0 35.1 42-52 % White Blood Count 6.48 4.8-10.8 K/uL Red Blood Count 4.04 4.7-6.1 M/uL Mean Corpuscular Volume 84.2 80-100 fL Mean Corpuscular Hemoglobin 27.5 25-34 pg Mean Corpuscular Hemoglobin Concent 32.6 32-36 g/dl Platelet Count 241 130-400 K/uL Mean Platelet Volume 12.1 7.4-10.4 fL Neutrophils (%) (Auto) 60.7 % Lymphocytes (%) (Auto) 28.4 % Monocytes (%) (Auto) 7.4 % Eosinophils (%) (Auto) 2.8 % Basophils (%) (Auto) 0.5 % Neutrophils # (Auto) 3.94 1.4-6.5 K/uL Lymphocytes # (Auto) 1.84 1.2-3.4 K/uL Monocytes # (Auto) 0.48 0.11-0.59 K/uL Eosinophils # (Auto) 0.18 0-0.5 K/uL Basophils # (Auto) 0.03 0-0.2 K/uL RDW Standard Deviation 41.6 36.4-46.3 fL RDW Coefficient of Variation 13.6 11.5-14.5 % Immature Granulocyte % (Auto) 0.2 % Immature Granulocyte # (Auto) 0.01 0.00-0.02 K/uL Sodium Level 141 136-145 mmol/L Potassium Level 4.1 3.5-5.1 mmol/L Chloride Level 111 98-107 mmol/L Carbon Dioxide Level 26 21-32 mmol/L Anion Gap 4.0 3-11 mmol/L Blood Urea Nitrogen 25 7-18 mg/dl Creatinine 0.80 0.60-1.40 mg/dl Est Creatinine Clear Calc Drug Dose 118.6 ml/min Estimated GFR () 119.0 Estimated GFR (Non- 102.7 BUN/Creatinine Ratio 31.5 10-20 Random Glucose 106 70-99 mg/dl Calcium Level 8.1 8.5-10.1 mg/dl Magnesium Level 2.2 1.8-2.4 mg/dl Impression Assessment and Plan Ralph is a 50 yo male with a history of gastric surgery to remove a GI stromal tumor who presents with lightheadedness, palpitation, sweating, dizziness, hypotension and syncope. Endoscopy performed showed ulcerations and a bleeding vessel around prior surgical site and this site was treated surgically during the procedure. He has been given octreotide, but this has been d/c'd. Was NOT given blood product. Has been started on pantoprazole therapy. CXR at admission was normal. Hypotension secondary to GI bleed - Hemodynamically stable - EGD identified likely sources and treated - Patient history negative for NSAID use and alcohol use - Patient started on liquid diet - Continue with pantoprazole - Progress diet as tolerated - Follow with GI - Assess biopsy for H. Pylori infection - Maintain BP with fluids Level of Care Med/Surg Advanced Directives Existing Advance Directive: No Existing Living Will: No Existing Power of Skiver Uppers Or Linings: No
[2016-11-30 19:43] VITALS: BP 128/87; PULSE 75; TEMP 37; O2SAT 98
--- NOTE | 2016-11-30 20:13 | Progress Note ---
Subjective Date of Service: Nov 30, 2016. Subjective Pt evaluation today including: conversation w/ patient, physical exam, chart review, lab review, review of studies (EGD), review of inpatient medication list Pain: none PO Intake: just about to take in clears for first time since EGD Voiding: no voiding problems tele stable overnight s/p EGD with gastric ulceration found denies any complaints and feels well no further dizziness or sweats Problem List Medical Problems: (1) Upper GI bleed Status: Acute Review of Systems Respiratory: No shortness of breath Cardiac: No chest pain Abdomen: No pain, No nausea, No vomiting, No GI bleeding Objective Vital Signs Date Time Temp Pulse Resp B/P (MAP) Pulse Ox O2 Delivery O2 Flow Rate FiO2 11/30/16 19:43 37.0 75 22 128/87 (101) 98 Room Air 11/30/16 16:08 36.7 68 22 140/90 (107) 98 Room Air 11/30/16 16:00 Room Air 11/30/16 12:30 Room Air 11/30/16 12:22 36.4 59 16 129/81 (97) 98 Room Air 11/30/16 12:00 69 20 110/78 (89) 97 Room Air 11/30/16 11:45 66 20 112/76 (88) 100 Room Air 11/30/16 11:30 84 20 101/67 (78) 96 Room Air 11/30/16 10:38 36.7 99 18 130/86 (101) 99 Room Air 11/30/16 08:00 Room Air 11/30/16 07:42 36.6 64 18 115/79 (91) 92 Room Air 11/30/16 04:25 36.7 73 16 112/74 (87) 99 Room Air 11/30/16 04:00 Room Air 11/29/16 23:59 Room Air 11/29/16 23:25 37.0 78 16 115/79 (91) 97 Room Air Physical Exam General Appearance: no apparent distress ENT: pharynx normal Neck: no JVD Respiratory/Chest: lungs clear, no respiratory distress, no accessory muscle use Cardiovascular: regular rate, rhythm, no gallop, no murmur Abdomen: normal bowel sounds, non tender, soft, no organomegaly Extremities: no pedal edema Laboratory Results Last 24 Hours Test 11/30/16 00:31 11/30/16 06:24 11/30/16 12:37 11/30/16 19:49 Hemoglobin 11.7 g/dL 11.1 g/dL 11.5 g/dL Hematocrit 34.8 % 34.0 % 35.1 % White Blood Count 6.48 K/uL Red Blood Count 4.04 M/uL Mean Corpuscular Volume 84.2 fL Mean Corpuscular Hemoglobin 27.5 pg Mean Corpuscular Hemoglobin Concent 32.6 g/dl Platelet Count 241 K/uL Mean Platelet Volume 12.1 fL Neutrophils (%) (Auto) 60.7 % Lymphocytes (%) (Auto) 28.4 % Monocytes (%) (Auto) 7.4 % Eosinophils (%) (Auto) 2.8 % Basophils (%) (Auto) 0.5 % Neutrophils # (Auto) 3.94 K/uL Lymphocytes # (Auto) 1.84 K/uL Monocytes # (Auto) 0.48 K/uL Eosinophils # (Auto) 0.18 K/uL Basophils # (Auto) 0.03 K/uL RDW Standard Deviation 41.6 fL RDW Coefficient of Variation 13.6 % Immature Granulocyte % (Auto) 0.2 % Immature Granulocyte # (Auto) 0.01 K/uL Sodium Level 141 mmol/L Potassium Level 4.1 mmol/L Chloride Level 111 mmol/L Carbon Dioxide Level 26 mmol/L Anion Gap 4.0 mmol/L Blood Urea Nitrogen 25 mg/dl Creatinine 0.80 mg/dl Est Creatinine Clear Calc Drug Dose 118.6 ml/min Estimated GFR () 119.0 Estimated GFR (Non- 102.7 BUN/Creatinine Ratio 31.5 Random Glucose 106 mg/dl Calcium Level 8.1 mg/dl Magnesium Level 2.2 mg/dl Assessment and Plan 50yo male with: 1. acute blood loss anemia - mild, H/H have stabilized. Repeat H/H tonight then full cbc in am. 2nd to upper GI bleeding. 2. upper GI bleeding 2nd to gastric ulceration - s/p EGD today with injection of epi and biopsy for h. pylori. PPI drip and octreotide drips stopped. Transition to PO protonix 40mg BID. Full liquid diet ordered by GI. 3. h/o GI stromal tumor s/p Billroth I procedure - noted. 4. syncope - 2nd to low BP in the setting of #1 - resolved; no recurrent symptoms. 5. DVT proph - SCDs. 6. FEN - start full liquids; lower IVF rate to 75cc/hr. lytes stable. possible D/c tomorrow? Continued [facility] stay due to: inadequate po fluid intake, multiple IV medications needed Discharge planning: home
[2016-11-30] MEDS: PANTOprazole SOD 40 MG TAB PO SCH (20:56)
[2016-12-01] MEDS: NSS + 20MEQ KCL 1000ML 1,000 ML IV SCH (00:11)
[2016-12-01 00:12] VITALS: BP 130/84; PULSE 72; TEMP 36.5; O2SAT 96
[2016-12-01 03:59] VITALS: BP 116/73; PULSE 70; TEMP 36.6; O2SAT 97
[2016-12-01 06:33] LABS: BASO % 0.7 %; BASO ABS # 0.04 K/uL (0-0.2); COMPLETE YES; EOS % 8.5 %; IG% 0.2 %; LYMPH % 31.3 %; LYMPH ABS # 1.73 K/uL (1.2-3.4); MEAN CELL VOLUME 84.2 fL (80-100); MEAN CORPUSCULAR HGB CONC 33.2 g/dl (32-36); MEAN PLATELET VOLUME 11.7 fL (7.4-10.4); MONO % 8.1 %; NEUT % 51.2 %; PLATELET COUNT 217 K/uL (130-400); RED BLOOD COUNT 3.68 M/uL (4.7-6.1); WHITE BLOOD COUNT 5.53 K/uL (4.8-10.8)
[2016-12-01 06:50] LABS: BUN/CREATININE RATIO 20.3 (10-20); CALCIUM 8.1 mg/dl (8.5-10.1); CREATININE 0.74 mg/dl (0.60-1.40); POTASSIUM 3.7 mmol/L (3.5-5.1)
[2016-12-01 08:21] VITALS: BP 108/67; PULSE 79; TEMP 36.6; O2SAT 97
[2016-12-01] MEDS: PANTOprazole SOD 40 MG TAB PO SCH (08:25)
--- NOTE | 2016-12-01 09:05 | Gastroenterology Progress Note ---
Progress Note Date of Service: Dec 01, 2016 Subjective Pt evaluation today including: conversation w/ patient, physical exam, chart review Pt was seen and evaluated this AM. He is feeling well. He was converted to PO PPI BID. Had regular diet this AM. No abdominal pain, upper GI symptoms or s/s of GI blood loss. Wants to go home. EGD 11/30/16: Normal esophagus. Normal mucosa was found in the entire stomach. Patent Billroth I gastroduodenostomy was found, characterized by ulceration at the jejunal anastomosis. A single spot (visible vessel) with no bleeding in the stomach. Injected. Treated with a monopolar probe Review of Systems Constitutional: No fever, No chills Respiratory: No cough Cardiac: No chest pain Abdomen: No pain, No nausea, No vomiting, No diarrhea, No constipation, No GI bleeding Medications Current Inpatient Medications Medications (Trade) Dose Ordered Sig/Esther Route Start Time Stop Time Status Last Admin Dose Admin Acetaminophen (Tylenol Tab) 650 mg Q4H PRN PO 11/29/16 16:45 12/29/16 16:44 Pantoprazole Sodium (Protonix Tab) 40 mg BID PO 11/30/16 21:00 12/30/16 20:59 12/01/16 08:25 40 MG Objective Vital Signs Date Time Temp Pulse Resp B/P (MAP) Pulse Ox O2 Delivery O2 Flow Rate FiO2 12/01/16 08:21 36.6 79 18 108/67 (81) 97 Room Air 12/01/16 04:00 Room Air 12/01/16 03:59 36.6 70 18 116/73 (87) 97 Room Air 12/01/16 00:12 36.5 72 18 130/84 (99) 96 Room Air 11/30/16 23:59 Room Air 11/30/16 20:00 Room Air 11/30/16 19:43 37.0 75 22 128/87 (101) 98 Room Air 11/30/16 16:08 36.7 68 22 140/90 (107) 98 Room Air 11/30/16 16:00 Room Air 11/30/16 12:30 Room Air 11/30/16 12:22 36.4 59 16 129/81 (97) 98 Room Air 11/30/16 12:00 69 20 110/78 (89) 97 Room Air 11/30/16 11:45 66 20 112/76 (88) 100 Room Air 11/30/16 11:30 84 20 101/67 (78) 96 Room Air 11/30/16 10:38 36.7 99 18 130/86 (101) 99 Room Air Physical Exam General Appearance: no apparent distress ENT: hearing grossly normal Neck: supple Respiratory/Chest: lungs clear, normal breath sounds Cardiovascular: regular rate, rhythm Abdomen: normal bowel sounds, non tender, soft, no organomegaly Neurologic/Psych: alert, normal mood/affect, oriented x 3 Skin: normal color Laboratory Results Last 24 Hours Test 11/30/16 12:37 11/30/16 19:49 12/01/16 05:57 Hemoglobin 11.5 g/dL 11.6 g/dL 10.3 g/dL Hematocrit 35.1 % 35.0 % 31.0 % White Blood Count 5.53 K/uL Red Blood Count 3.68 M/uL Mean Corpuscular Volume 84.2 fL Mean Corpuscular Hemoglobin 28.0 pg Mean Corpuscular Hemoglobin Concent 33.2 g/dl Platelet Count 217 K/uL Mean Platelet Volume 11.7 fL Neutrophils (%) (Auto) 51.2 % Lymphocytes (%) (Auto) 31.3 % Monocytes (%) (Auto) 8.1 % Eosinophils (%) (Auto) 8.5 % Basophils (%) (Auto) 0.7 % Neutrophils # (Auto) 2.83 K/uL Lymphocytes # (Auto) 1.73 K/uL Monocytes # (Auto) 0.45 K/uL Eosinophils # (Auto) 0.47 K/uL Basophils # (Auto) 0.04 K/uL RDW Standard Deviation 41.3 fL RDW Coefficient of Variation 13.5 % Immature Granulocyte % (Auto) 0.2 % Immature Granulocyte # (Auto) 0.01 K/uL Sodium Level 141 mmol/L Potassium Level 3.7 mmol/L Chloride Level 108 mmol/L Carbon Dioxide Level 27 mmol/L Anion Gap 6.0 mmol/L Blood Urea Nitrogen 15 mg/dl Creatinine 0.74 mg/dl Est Creatinine Clear Calc Drug Dose 128.2 ml/min Estimated GFR () 122.9 Estimated GFR (Non- 106.1 BUN/Creatinine Ratio 20.3 Random Glucose 88 mg/dl Calcium Level 8.1 mg/dl Assessment and Plan Mr. Painting is a 50 YOM w/ hx of GIST tumor s/p resection admitted with melena, syncope and hematemesis. EGD on 11/30/16 w/ a patent Billroth I gastroduodenostomy was found, characterized by ulceration at the jejunal anastomosis and a visible vessel with no bleeding in the stomach treated with epi injection and cautery - Advance diet as tolerated - Protonix 40 twice daily for 4 weeks - Protonix 20 mg daily indefinitely - Repeat EGD in 12 weeks - Follow up H. pylori screening GI to sign off, please call with any question. No contraindications to discharge. I saw and evaluated the patient. There's been no recurrence of recurrent gastrointestinal bleeding. Recommendations Advance diet as tolerated Protonix 40 mg twice daily 4 weeks then 20 mg daily thereafter Repeat upper endoscopy in 12 weeks
[2016-12-01] MEDS ORDERED: FRRS300 PO (11:27)
[2016-12-01] MEDS ORDERED: PRT40 PO (11:27)
[2016-12-01] MEDS ORDERED: PRT/20 PO (11:27)
[2016-12-01 11:30] VITALS: BP 108/67; PULSE 79; TEMP 36.6; O2SAT 97
[2016-12-01 11:35] LABS: HEMATOCRIT 30.8 % (42-52)
--- NOTE | 2016-12-01 11:39 | Discharge Instructions ---
Discharge Instructions Date of Service Dec 01, 2016. Admission Reason for Admission: Gi Bleed Discharge Discharge Diagnosis / Problem: upper GI bleeding due to gastric ulcer Discharge Goals Goal(s): Learn about illness, Diagnostic testing, Therapeutic intervention Activity Recommendations Activity Limitations: as noted below For the next 3-4 days "take it easy" - would avoid heavy exertional activity such as going to the gym, heavy yard work, heavy lifting over 20 pounds, etc. After your follow-up with Dr. Romero you can likely return to full physical duties. . Instructions / Follow-Up Instructions / Follow-Up From Dr. Meng - 1. For your ulcer - * take protonix (pantoprazole) 40mg twice daily (AM upon awakening and at bedtime) for 30 days * after 30 days please fill the 20mg of pantoprazole and take every day indefinitely * avoid all NSAIDs (anti-inflammatory pills) such as aspirin, motrin, ibuprofen , naprosyn, aleve, goodie powders, BC powders, etc. * tylenol is OK * for the next 7-10 days avoid excessive amounts of fried foods, spicy foods, and caffeinated beverages * due to your stomach anatomy would recommend 4-5 small meals throughout the day ; this may help cut down on bloating, etc 2. Anemia - * you have mildly low blood counts because of the bleeding * take iron supplementation for 1-2 months * you can buy ferrous sulfate across the counter * take 325mg twice daily with a glass of orange juice * the iron will likely cause constipation as well as turn your stools herman/dark 3. Stop your zantac (ranitidine) 4. If you see black, tarry stools or you have vomiting that contains black material or blood please report back to [facility] right away. These are signs of rebleeding from the GI tract. 5. Other reasons to return to [facility] include - * palpitations (racing heart) * dizziness, lightheadedness or passing out * chest pain or shortness of breath 6. Follow-up appointments: * see Dr. Romero within 4-5 days; please ask him to obtain a blood count at that time * see Fabian Ramsey, in 4 weeks Current Hospital Diet Patient's current hospital diet: AHA Diet (Heart Healthy) Discharge Diet Recommended Diet: Regular Diet Procedures Procedures Performed: EGD - 2 ulcers - one in the stomach, and one at the junction of the stomach with the intestine. The one in the stomach was the culprit lesion that caused your bleeding. Pending Studies Studies pending at discharge: yes List of pending studies: biopsy of the stomach Medical Emergencies . Who to Call and When: Medical Emergencies: If at any time you feel your situation is an emergency, please call 911 immediately. . Non-Emergent Contact Non-Emergency issues call your: Primary Care Provider Call Non-Emergent contact if: your pain is not controlled, your pain is worsening, your pain is unusual for you, your pain is concerning you, you have any medication questions . . "Provider Documentation" section prepared by Florian Meng. . VTE Core Measure Inpt VTE Proph given/why not?: T.E.D. Stockings, SCD's, Contraindicated
--- NOTE | 2016-12-01 12:23 | Medical Student: [facility] ---
Med Student Progress Note Date of Service Dec 01, 2016. Subjective Pt evaluation today including: conversation w/ patient Mr. Painting is feeling great today. While I was in the room, he was having a soft breakfast, but was brought in a regular diet and he seemed to be tolerating it well during our conversation. He denies any sweats, palpitations, dizziness, emesis, dark stools, or bloody stools. He was curious about the PPI's and where to go from here in regards to his treatment. I discussed with him about the concern for worsening of ulcers and recurrence of bleeds in people who have already had one occur, and this will likely need snf use. He was also curious about a nerve ablation procedure he said a friend had 30 years ago as an alternative to snf PPI use. I told him I was not aware of this procedure, but as he is scheduled to see GI later, I told him to bring this up at that time. Review of Systems Constitutional: No fever, No chills, No sweats, No weakness, No fatigue, No problem reported ENT: No unusual epistaxis, No trouble swallowing, No problem reported Respiratory: No cough, No sputum, No wheezing, No shortness of breath, No dyspnea on exertion, No dyspnea at rest, No hemoptysis, No problem reported Cardiac: No chest pain, No orthopnea, No PND, No edema, No claudication, No palpitations, No problem reported Abdomen: No pain, No nausea, No vomiting, No diarrhea, No constipation, No GI bleeding, No problem reported Objective Vital Signs Date Time Temp Pulse Resp B/P (MAP) Pulse Ox O2 Delivery O2 Flow Rate FiO2 12/01/16 08:21 36.6 79 18 108/67 (81) 97 Room Air 12/01/16 08:00 Room Air 12/01/16 04:00 Room Air 12/01/16 03:59 36.6 70 18 116/73 (87) 97 Room Air 12/01/16 00:12 36.5 72 18 130/84 (99) 96 Room Air 11/30/16 23:59 Room Air 11/30/16 20:00 Room Air 11/30/16 19:43 37.0 75 22 128/87 (101) 98 Room Air 11/30/16 16:08 36.7 68 22 140/90 (107) 98 Room Air 11/30/16 16:00 Room Air 11/30/16 12:30 Room Air 11/30/16 12:22 36.4 59 16 129/81 (97) 98 Room Air 11/30/16 12:00 69 20 110/78 (89) 97 Room Air 11/30/16 11:45 66 20 112/76 (88) 100 Room Air 11/30/16 11:30 84 20 101/67 (78) 96 Room Air 11/30/16 10:38 36.7 99 18 130/86 (101) 99 Room Air Physical Exam General Appearance: WD/WN, no apparent distress ENT: hearing grossly normal, pharynx normal Neck: supple, no JVD, trachea midline Respiratory/Chest: chest non-tender, lungs clear, normal breath sounds, no respiratory distress, no accessory muscle use Cardiovascular: regular rate, rhythm, no edema, no gallop, no JVD, no murmur Abdomen: normal bowel sounds, non tender, soft, no organomegaly, no pulsatile mass Extremities: normal inspection, no pedal edema, no calf tenderness, normal capillary refill Neurologic/Psychiatric: alert, normal mood/affect, oriented x 3 Skin: normal color, warm/dry, no rash Comments: no conjunctival pallor Laboratory Results Last 24 Hours Test 11/30/16 12:37 11/30/16 19:49 12/01/16 05:57 Hemoglobin 11.5 g/dL 11.6 g/dL 10.3 g/dL Hematocrit 35.1 % 35.0 % 31.0 % White Blood Count 5.53 K/uL Red Blood Count 3.68 M/uL Mean Corpuscular Volume 84.2 fL Mean Corpuscular Hemoglobin 28.0 pg Mean Corpuscular Hemoglobin Concent 33.2 g/dl Platelet Count 217 K/uL Mean Platelet Volume 11.7 fL Neutrophils (%) (Auto) 51.2 % Lymphocytes (%) (Auto) 31.3 % Monocytes (%) (Auto) 8.1 % Eosinophils (%) (Auto) 8.5 % Basophils (%) (Auto) 0.7 % Neutrophils # (Auto) 2.83 K/uL Lymphocytes # (Auto) 1.73 K/uL Monocytes # (Auto) 0.45 K/uL Eosinophils # (Auto) 0.47 K/uL Basophils # (Auto) 0.04 K/uL RDW Standard Deviation 41.3 fL RDW Coefficient of Variation 13.5 % Immature Granulocyte % (Auto) 0.2 % Immature Granulocyte # (Auto) 0.01 K/uL Sodium Level 141 mmol/L Potassium Level 3.7 mmol/L Chloride Level 108 mmol/L Carbon Dioxide Level 27 mmol/L Anion Gap 6.0 mmol/L Blood Urea Nitrogen 15 mg/dl Creatinine 0.74 mg/dl Est Creatinine Clear Calc Drug Dose 128.2 ml/min Estimated GFR () 122.9 Estimated GFR (Non- 106.1 BUN/Creatinine Ratio 20.3 Random Glucose 88 mg/dl Calcium Level 8.1 mg/dl Assessment and Plan Assessment and Plan: Mr. 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 He has been treated with IV hydration, Pantoprazole, and initially was treated with octreotide but is no longer. He has been tolerating regular diet today and has no new complaints. Upper GI Bleed in setting of prior gastric surgery - EGD performed, lesions identified, large lesion was treated surgically - Vitals within normal limits - Hemoglobin 10.3 - No episodes of hypotensive symptoms, no emesis since presentation - Tolerating diet well - Plan for discharge home today - Continue with pantoprazole oral medication, manage on outpatient basis - Recommend B12 and iron supplements, consider Ca and Mg supplements - Follow up with GI outpatient Continued [facility] stay due to: inadequate po fluid intake, multiple IV medications needed Discharge planning: home
[2016-12-01 12:26] VITALS: BP 133/85; PULSE 79; TEMP 36.6; O2SAT 100
--- NOTE | 2016-12-01 21:00 | Discharge Summary ---
Discharge Summary Date of Service Dec 01, 2016. Discharge Summary Admission Date: Nov 29, 2016 at 16:50 Discharge Date: Dec 01, 2016 Discharge Disposition: Home Principal Diagnosis: upper GI bleeding 2nd to gastric ulcer Problems/Secondary Diagnoses: 1. h/o gastrointestinal stromal tumor 2. Billroth I gastroduodenostomy anatomy 3. anastomotic ulcer as seen on EGD 4. syncope 2nd to GI bleeding 5. mild acute blood loss anemia Immunizations: Have You Had Influenza Vaccine: Unknown History of Tetanus Vaccine?: Yes History of Pneumococcal: No History of Hepatitis B Vaccine: Unknown Procedures: EGD - Berkley Ma DO Impression: - Normal esophagus. - Normal mucosa was found in the entire stomach. Biopsied. - Patent Billroth I gastroduodenostomy was found, characterized by ulceration at the jejunal anastomosis. - A single spot (visible vessel) with no bleeding in the stomach. Injected. Treated with a monopolar probe. Consultations: gastroenterology - Berkley Ma DO Medication Reconciliation New Medications: Ferrous Sulfate (Ferrous Sulfate) 325 Mg Tab 325 MG PO BID, #60 TAB 1 Refill Pantoprazole Sodium (Protonix) 20 Mg Tab 1 TAB PO QAM for 90 Days, #90 TAB 3 Refills Pantoprazole (Pantoprazole Sodium) 40 Mg Tab 40 MG PO BID, #60 TAB 0 Refills Continued Medications: Cyanocobalamin (Vitamin B12) 1,000 Mcg Tab 1000 MG PO DAILY Discontinued Medications: Ranitidine Hcl (Zantac) 300 Mg Tab 300 MG PO BID, TAB Referrals At Discharge Follow up Referrals: [employer] Referral - Within a Month with Berkley Ma, Discharge Exam Physical Exam: General Appearance: WD/WN, no apparent distress ENT: pharynx normal Neck: no JVD Respiratory/Chest: lungs clear, no respiratory distress, no accessory muscle use Cardiovascular: regular rate, rhythm, no gallop, no murmur, normal peripheral pulses Abdomen / GI: normal bowel sounds, non tender, soft, no organomegaly Extremities: no pedal edema Neurologic/Psychiatric: alert, oriented x 3 Skin: + pertinent finding (left anterior distal leg - irregularly shaped camp macule with two-tone color) Hospital Course HISTORY OF PRESENT ILLNESS: This patient is a 50-year-old male that presents emergency department with complaints of feeling lightheaded, dizzy and clammy that started this morning when he woke up. The patient had a bowel movement, and notes that it was black. The patient laid down to rest and felt slightly better. Immediately upon standing, his symptoms returned. Upon arrival into the emergency department, the patient had a syncopal episode and an episode of coffee-ground emesis. The patient has a history of GI stromal tumor status post partial gastrectomy and gastrojejunostomy in January 2015. He did have a postoperative GI bleed. The patient does not take a PPI. He does take Zantac BID. He denies any infectious etiology such as fever or chills. He denies any abdominal pain. No recent illnesses. He reports doing perfectly fine yesterday. HOSPITAL COURSE: The patient's syncopal episode was due to his acute upper GI bleeding with resulting transient tachycardia with hypotension. The latter quickly resolved in the ER with fluid resuscitation. Following admission the patient was begun on protonix drip and kept NPO. [facility], and on hospital day #2 underwent EGD. EGD demonstrated two areas of ulceration - the first was at the anastomotic region of his gastroduodenostomy. This area was not felt to the the source of his bleeding. There was a 2nd area of ulceration in the gastric wall with a visible vessel that was felt to be the culprit lesion. This area was treated by Dr. Ma as described above. Following his EGD he was resumed on a diet and placed on PPI twice daily by mouth. Serial hemoglobins continued to remain stable with discharge hemoglobin of 10.3. He did not require PRBCs while hospitalized. The plan at discharge is as follows - 1. protonix 40mg twice daily x 30 days followed by 20mg protonix daily indefinitely 2. repeat EGD in [address] Ma 3. discontinuation of zantac 4. avoidance of NSAIDs 5. ferrous sulfate supplementation Total Time Spent: Less than 30 minutes This includes examination of the patient, discharge planning, medication reconciliation, and communication with other providers. Discharge Instructions Please refer to the electronic Patient Visit Report (Discharge Instructions) for additional information. Follow-Up 1. see Dr. Romero within [address] Ma within 1 month Additional Copies To Berkley Ma, ; Kyrie Romero M.D.
[2016-12-07] MEDS ORDERED: SUCR1TAB PO (10:39)
== END 2016-12-01 12:25 | disposition home or self-care (01) | DRG 378 ==
LOC: C.EDB 15:27 → C.2E 16:50 → EDBEDREQSVC 16:54 → EDBEDREQ 16:54 → ENRESERV 18:19
PROVIDERS: ADMIT Hospitalist; ATTEND Internal Medicine
PROC: 0DB68ZX Excision of Stomach, Via Natural or Artificial Opening Endoscopic, Diagnostic (ICD-10-PCS; principal; 2016-11-30 10:45)
DX: K25.4 Chronic or unspecified gastric ulcer with hemorrhage (principal); D62 Acute posthemorrhagic anemia; K28.4 Chronic or unspecified gastrojejunal ulcer with hemorrhage; R55 Syncope and collapse; Z90.3 Acquired absence of stomach [part of]; Z85.09 Personal history of malignant neoplasm of other digestive organs; Z79.899 Other long term (current) drug therapy

== ENCOUNTER 2016-12-04 20:49 | Inpatient (IN) | payer OTHER ==
[~2016-12-04] VITALS: Ht 182.9 cm; Wt 82.0 kg
[~2016-12-04 20:49] MED LIST changes: -ACET-1256 PO; -CALC500C3 PO; -CLC100 PO; +CYAN100020 PO; +FRRS300 PO; -IBUP-1050 PO; -PRLSR20 PO; +PRT/20 PO; +PRT40 PO
[2016-12-04] MEDS ORDERED: SODIUM CHLORIDE 0.9% 1000ML 1,000 ML IV STA (21:02)
[2016-12-04] MEDS ORDERED: FERR1TAB13 PO (21:06)
[2016-12-04] MEDS ORDERED: OMEP40CA41 PO (21:06)
[2016-12-04] MEDS ORDERED: RANITIDINE HCL 50 MG/100 ML D5W IV STA (21:21)
[2016-12-04 21:26] LABS: ISTAT CREATININE 0.9 mg/dl (0.6-1.3); ISTAT HEMOGLOBIN 5.1 g/dl (14.0-18.0); ISTAT IONIZED CALCIUM 1.09 mmol/l (1.12-1.32)
[2016-12-04] MEDS ORDERED: PANTOprazole INJ 80 MG in DEXTROSE 5% 100ML IV STA (21:27)
[2016-12-04] MEDS ORDERED: PANTOprazole INJ 40 MG in DEXTROSE 5% 100ML IV SCH (21:30)
[2016-12-04 21:31] LABS: INR 1.1 (0.9-1.1); PARTIAL THROMBOPLASTIN RATIO 0.7; PROTHROMBIN TIME (PATIENT) 11.9 SECONDS (9.0-12.0)
[2016-12-04 21:37] LABS: HEMATOCRIT 17.3 % (42-52); MEAN CELL VOLUME 84.8 fL (80-100); MEAN CORPUSCULAR HEMOGLOBIN 29.4 pg (25-34); MEAN CORPUSCULAR HGB CONC 34.7 g/dl (32-36); MEAN PLATELET VOLUME 11.7 fL (7.4-10.4); PLATELET COUNT 233 K/uL (130-400); RED BLOOD COUNT 2.04 M/uL (4.7-6.1); WHITE BLOOD COUNT 7.97 K/uL (4.8-10.8)
[2016-12-04 21:40] VITALS: BP 107/69; PULSE 97; PULSE 99; TEMP 36.6; O2SAT 100
[2016-12-04 21:43] LABS: ALT/SGPT 20 U/L (12-78); BLOOD UREA NITROGEN 30 mg/dl (7-18); BUN/CREATININE RATIO 32.3 (10-20); CALCIUM 7.8 mg/dl (8.5-10.1); CARBON DIOXIDE 24 mmol/L (21-32); CHLORIDE 108 mmol/L (98-107); CREATININE 0.92 mg/dl (0.60-1.40); GLUCOSE 148 mg/dl (70-99); POTASSIUM 3.5 mmol/L (3.5-5.1); SODIUM 141 mmol/L (136-145)
[2016-12-04 21:45] VITALS: BP 113/66; PULSE 92; PULSE 96; TEMP 36.8; O2SAT 100
[2016-12-04 21:48] LABS: ALKALINE PHOSPHATASE 53 U/L (45-117); AST/SGOT 15 U/L (15-37); CKMB/CK RATIO 1.4 (0-3.0)
[2016-12-04 21:59] LABS: BASO % 0.4 %; BASO ABS # 0.03 K/uL (0-0.2); COMPLETE YES; EOS % 2.5 %; IG% 0.3 %; LYMPH ABS # 1.91 K/uL (1.2-3.4); MONO % 3.9 %; NEUT % 68.9 %; POLYCHROMASIA 1+
[2016-12-04] MEDS ORDERED: NURSING VERBAL MED ORDER ONE (22:00)
[2016-12-04] MEDS ORDERED: MoRPHine SULFATE 4 MG/ML 1 ML CARP\\VIAL IV PRN (22:00)
[2016-12-04] MEDS ORDERED: METOCLOPRAMIDE HCL INJ 5 MG/ML 2 ML VIAL ONE (22:00)
[2016-12-04] MEDS ORDERED: LORAZEPAM 2 MG/ML 1 ML VIAL IV PRN (22:00)
--- NOTE | 2016-12-04 22:20 | History and Physical ---
History & Physical Date & Time of Service: Dec 04, 2016 at 22:05 Chief Complaint: Gi Bleed Primary Care Physician: Kyrie Romero M.D. History of Present Illness Source: patient 50 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 Pt was hospitalized on November 29 following an episode of coffee ground emesis and syncope. He presented to the ER light-headed and diaphoretic. He had also reported melanotic stool and anemia with an Hb of 11 was confirmed on intial labs. The pt proceeded to endoscopy where an ulcer an vascular erosion was identified at the site of a previous anastomosis. He returned home 3 days later. He began having some orthostatic symptoms one day prior and then became progressively weak, light headed and rigorous. He reports 2 days of black bowel movements. His initial hemoglobin was confirmed at 5.0. Currently the pt is being transfused 2 units and GI has arrived to take him to the endoscopy suite. He will proceed from there to the ICU. He is fully oriented on admission and denies CP or LOC. He was hypotensive prior to receiving fluids and has an SBP of 100 at the time of transfer. Past Medical/Surgical History Medical Problems: (1) Gastrointestinal stromal tumor Status: Resolved - resected - underwent gastrojejunostomy in 2014 2) GI bleed - post-op and 12/15 - ulcer identified at anastomosis Surgical Problems: (1) H/O abdominal surgery Status: Chronic Family History No pertinent family history Social History Smoking Status: Never Smoker Drug Use: none Marital Status: Housing status: lives with family Occupational Status: employed Immunizations History of Influenza Vaccine: Unknown History of Tetanus Vaccine?: Yes History of Pneumococcal: No History of Hepatitis B Vaccine: Unknown Multi-Drug Resistant Organisms History of MDRO: No Allergies Coded Allergies: Penicillins (Verified Allergy, Intermediate, RASH, 12/04/16) Home Medications Scheduled Cyanocobalamin (Vitamin B12), 1,000 MG PO DAILY Ferrous Sulfate ( Ferrous Sulfate), 650 MG PO BID Omeprazole (Prilosec), 40 MG PO BID Review of Systems Constitutional: + sweats, + fatigue Eyes: No worsening of vision, No eye pain ENT: No hearing loss, No unusual epistaxis, No nasal symptoms Respiratory: No cough, No sputum, No wheezing Cardiovascular: No chest pain, No orthopnea, No PND Abdomen: + GI bleeding, + problem reported (black stool as above), No pain, No nausea, No vomiting Musculoskeletal: No joint pain Genitourinary - Male: No hematuria, No dysuria Neurologic: No memory loss, No paralysis, No weakness Psychiatric: No depression symptoms Endocrine: + fatigue Hematologic / Lymphatic: + abnormal bleeding/bruising Integumentary: No rash Allergic / Immunologic: No environmental allergies Physical Exam Vital Signs Date Time Temp Pulse Resp B/P (MAP) Pulse Ox O2 Delivery O2 Flow Rate FiO2 12/04/16 21:40 36.6 97 18 107/69 100 15.0 12/04/16 21:40 36.6 99 17 107/69 100 15.0 12/04/16 21:19 88 12/04/16 20:50 36.8 121 20 97/59 100 Room Air General Appearance: WD/WN, + mild distress, + pertinent finding (thin, plae middle-aged male appearing uncomfortable) Eyes: normal inspection, EOMI ENT: normal ENT inspection, pharynx normal Neck: supple, no JVD Respiratory/Chest: chest non-tender, lungs clear, normal breath sounds, no respiratory distress, no accessory muscle use Cardiovascular: no edema, no gallop, no JVD, no murmur, + tachycardia Abdomen/GI: normal bowel sounds, non tender, soft Back: normal inspection, no CVA tenderness Extremities/Musculoskelatal: normal inspection, no calf tenderness, normal capillary refill, no pedal edema, normal range of motion Neurologic/Psych: placement interviewer II-XII nml as tested, no motor/sensory deficits, alert, normal mood/affect, normal reflexes, oriented x 3 Skin: + pertinent finding (pallor present) Diagnostics Laboratory Results Results Past 24 Hours Test 12/04/16 21:03 12/04/16 21:13 Range/Units White Blood Count 7.97 4.8-10.8 K/uL Red Blood Count 2.04 4.7-6.1 M/uL Hemoglobin 6.0 14.0-18.0 g/dL Hematocrit 17.3 42-52 % Mean Corpuscular Volume 84.8 80-100 fL Mean Corpuscular Hemoglobin 29.4 25-34 pg Mean Corpuscular Hemoglobin Concent 34.7 32-36 g/dl Platelet Count 233 130-400 K/uL Mean Platelet Volume 11.7 7.4-10.4 fL Neutrophils (%) (Auto) 68.9 % Lymphocytes (%) (Auto) 24.0 % Monocytes (%) (Auto) 3.9 % Eosinophils (%) (Auto) 2.5 % Basophils (%) (Auto) 0.4 % Neutrophils # (Auto) 5.50 1.4-6.5 K/uL Lymphocytes # (Auto) 1.91 1.2-3.4 K/uL Monocytes # (Auto) 0.31 0.11-0.59 K/uL Eosinophils # (Auto) 0.20 0-0.5 K/uL Basophils # (Auto) 0.03 0-0.2 K/uL RDW Standard Deviation 42.3 36.4-46.3 fL RDW Coefficient of Variation 13.9 11.5-14.5 % Immature Granulocyte % (Auto) 0.3 % Immature Granulocyte # (Auto) 0.02 0.00-0.02 K/uL Polychromasia 1+ Prothrombin Time 11.9 9.0-12.0 SECONDS Prothromb Time International Ratio 1.1 0.9-1.1 Activated Partial Thromboplast Time 18.2 21.0-31.0 SECONDS Partial Thromboplastin Ratio 0.7 Sodium Level 141 136-145 mmol/L Potassium Level 3.5 3.5-5.1 mmol/L Chloride Level 108 98-107 mmol/L Carbon Dioxide Level 24 21-32 mmol/L Anion Gap 9.0 20.0 16-25 mmol/L Blood Urea Nitrogen 30 7-18 mg/dl Creatinine 0.92 0.60-1.40 mg/dl Est Creatinine Clear Calc Drug Dose 103.1 ml/min Estimated GFR () 110.4 Estimated GFR (Non- 95.3 BUN/Creatinine Ratio 32.3 10-20 Random Glucose 148 70-99 mg/dl Calcium Level 7.8 8.5-10.1 mg/dl Total Bilirubin 0.5 0.2-1 mg/dl Direct Bilirubin 0.1 0-0.2 mg/dl Aspartate Amino Transf (AST/SGOT) 15 15-37 U/L Alanine Aminotransferase (ALT/SGPT) 20 12-78 U/L Alkaline Phosphatase 53 45-117 U/L Total Creatine Kinase 71 39-308 U/L Creatine Kinase MB 1.0 0.5-3.6 ng/ml Creatine Kinase MB Ratio 1.4 0-3.0 Troponin I < 0.015 0-0.045 ng/ml Total Protein 4.8 6.4-8.2 gm/dl Albumin 2.6 3.4-5.0 gm/dl Lipase 218 73-393 U/L Bedside Hemoglobin 5.1 14.0-18.0 g/dl Bedside Hematocrit 15 42-52 % Bedside Sodium 139 135-144 mEq/L Bedside Potassium 3.5 3.3-5.0 mEq/L Bedside Chloride 102 101-112 mEq/L Bedside Total CO2 21 24-31 mEq/l Bedside Blood Urea Nitrogen 28 7-18 mg/dl Bedside Creatinine 0.9 0.6-1.3 mg/dl Bedside Glucose (other) 143 70-99 mg/dl Bedside Ionized Calcium (Christiano) 1.09 1.12-1.32 mmol/l Impression Assessment and Plan 50 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 Pt was hospitalized on November 29 following an episode of coffee ground emesis and syncope. He presented to the ER light-headed and diaphoretic. He had also reported melanotic stool and anemia with an Hb of 11 was confirmed on intial labs. The pt proceeded to endoscopy where an ulcer an vascular erosion was identified at the site of a previous anastomosis. He returned home 3 days later. He began having some orthostatic symptoms one day prior and then became progressively weak, light headed and rigorous. He reports 2 days of black bowel movements. His initial hemoglobin was confirmed at 5.0. Currently the pt is being transfused 2 units and GI has arrived to take him to the endoscopy suite. He will proceed from there to the ICU. He is fully oriented on admission and denies CP or LOC. He was hypotensive prior to receiving fluids and has an SBP of 100 at the time of transfer. Pt stabilized in ER - placed on a PPi drip and receiving transfusions and IVF - proceeding to ICU following endoscopy Addendum to follow Full code - SCDs Total time for this admit including review of labs, meds, records - discussion with pt and ER attending including critical care time - 38 min Level of Care Critical Care Resuscitation Status FULL RESUSCITATION VTE Prophylaxis VTE Risk Assessment Done? Y/N: Yes Risk Level: Low Given or contraindicated: SCD's
--- NOTE | 2016-12-04 22:22 | Gastrointestinal Consultation ---
Gastrointestinal Consultation Date of Consultation: Dec 04, 2016 Attending Physician: Dr. Erwin Consulting Physician: Dr. Min Reason for Consultation: Melena, Syncope, Acute Blood Loss Anemia History of Present Illness Patient is a 50 year old male with History of of GIST of the stomach s/p Bilroth I who underwent an EGD on 11/30 for Melena and Syncope. Dr. Ma identified a visible vessel within an ulcer on the Gastric body opposite the anastomosis. He injected epinephrine, and ablated the vessel with heater probe. There was no bleeding at the end of the procedure. He was discharged the following day on twice daily PPI therapy. Initially he did quite well, however, over the last 24 hours he became tachycardic, syncopal, and has had numerous large volume melenic stools. On arrival he was tachycardic and hypotensive. His H/H was 5.1 and 15. He was given IVF and transfused 2 u PRBC' s and had a good response, with normalization of his BP and heart rate. At the time I saw the patient, he denied any abdominal pain. He states that he feels slightly improved from his arrival. He denies any abdominal pain at this time. He states that he has been taking his medications at home as prescribed. Past Medical/Surgical History Medical Problems: (1) Upper GI bleed Status: Acute Past Medical History: 1) GIST 2) Gastric Ulcer 3) Syncope 4) Acute Blood Loss Anemia Past Surgical History: Bilroth I resection for Gastric GIST Family History No pertinent family history Social History Smoking Status: Never Smoker Alcohol Use: none Drug Use: none Marital Status: Housing Status: lives with family Occupation Status: employed Allergies Coded Allergies: Penicillins (Verified Allergy, Intermediate, RASH, 12/04/16) Current Medications Home Meds and Scripts Medications Dose Route/Sig Max Daily Dose Days Date Category Prilosec (Omeprazole) 40 Mg Cap 40 Mg PO BID 12/04/16 Reported Kp Ferrous Sulfate (Ferrous Sulfate) 325 Mg Tab 650 Mg PO BID 30 12/04/16 Reported Vitamin B12 (Cyanocobalamin) 1,000 Mcg Tab 1,000 Mg PO DAILY 11/29/16 Reported Review of Systems Constitutional: No fever, No chills Eyes: No worsening of vision ENT: No hearing loss, No unusual epistaxis, No trouble swallowing, No pain on swallowing Respiratory: + dyspnea on exertion, No cough, No sputum, No wheezing, No shortness of breath Cardiac: No chest pain Abdomen: + GI bleeding, No pain, No nausea, No vomiting, No diarrhea, No constipation, No dysphagia, No odynophagia, No acolic stools, No jaundice Musculoskeletal: No joint pain Male : No dysuria, No hematuria Neuro: No numbness/tingling Heme: No abnormal bleeding/bruising Endo: + fatigue Skin: No rash, No itch Physical Exam Date Time Temp Pulse Resp B/P (MAP) Pulse Ox O2 Delivery O2 Flow Rate FiO2 12/04/16 21:45 36.8 92 18 113/66 100 15.0 12/04/16 21:45 36.8 96 20 113/66 100 15.0 12/04/16 21:40 36.6 97 18 107/69 100 15.0 12/04/16 21:40 36.6 99 17 107/69 100 15.0 12/04/16 21:19 88 12/04/16 20:50 36.8 121 20 97/59 100 Room Air General Appearance: + mild distress Eyes: normal inspection ENT: hearing grossly normal Neck: supple, no adenopathy Respiratory/Chest: lungs clear Cardiovascular: regular rate, rhythm Abdomen: normal bowel sounds, non tender, soft Extremities: non-tender, no pedal edema Neurologic/Psych: alert, oriented x 3 Skin: + pallor Laboratory Results Last 24 Hours Test 12/04/16 21:03 12/04/16 21:13 White Blood Count 7.97 K/uL Red Blood Count 2.04 M/uL Hemoglobin 6.0 g/dL Hematocrit 17.3 % Mean Corpuscular Volume 84.8 fL Mean Corpuscular Hemoglobin 29.4 pg Mean Corpuscular Hemoglobin Concent 34.7 g/dl Platelet Count 233 K/uL Mean Platelet Volume 11.7 fL Neutrophils (%) (Auto) 68.9 % Lymphocytes (%) (Auto) 24.0 % Monocytes (%) (Auto) 3.9 % Eosinophils (%) (Auto) 2.5 % Basophils (%) (Auto) 0.4 % Neutrophils # (Auto) 5.50 K/uL Lymphocytes # (Auto) 1.91 K/uL Monocytes # (Auto) 0.31 K/uL Eosinophils # (Auto) 0.20 K/uL Basophils # (Auto) 0.03 K/uL RDW Standard Deviation 42.3 fL RDW Coefficient of Variation 13.9 % Immature Granulocyte % (Auto) 0.3 % Immature Granulocyte # (Auto) 0.02 K/uL Polychromasia 1+ Prothrombin Time 11.9 SECONDS Prothromb Time International Ratio 1.1 Activated Partial Thromboplast Time 18.2 SECONDS Partial Thromboplastin Ratio 0.7 Sodium Level 141 mmol/L Potassium Level 3.5 mmol/L Chloride Level 108 mmol/L Carbon Dioxide Level 24 mmol/L Anion Gap 9.0 mmol/L 20.0 mmol/L Blood Urea Nitrogen 30 mg/dl Creatinine 0.92 mg/dl Est Creatinine Clear Calc Drug Dose 103.1 ml/min Estimated GFR () 110.4 Estimated GFR (Non- 95.3 BUN/Creatinine Ratio 32.3 Random Glucose 148 mg/dl Calcium Level 7.8 mg/dl Total Bilirubin 0.5 mg/dl Direct Bilirubin 0.1 mg/dl Aspartate Amino Transf (AST/SGOT) 15 U/L Alanine Aminotransferase (ALT/SGPT) 20 U/L Alkaline Phosphatase 53 U/L Total Creatine Kinase 71 U/L Creatine Kinase MB 1.0 ng/ml Creatine Kinase MB Ratio 1.4 Troponin I < 0.015 ng/ml Total Protein 4.8 gm/dl Albumin 2.6 gm/dl Lipase 218 U/L Bedside Hemoglobin 5.1 g/dl Bedside Hematocrit 15 % Bedside Sodium 139 mEq/L Bedside Potassium 3.5 mEq/L Bedside Chloride 102 mEq/L Bedside Total CO2 21 mEq/l Bedside Blood Urea Nitrogen 28 mg/dl Bedside Creatinine 0.9 mg/dl Bedside Glucose (other) 143 mg/dl Bedside Ionized Calcium (Christiano) 1.09 mmol/l Impression Patient is a 50 year old male with melena, syncope and acute blood loss anemia, with known gastric ulcer. Plan 1) Reglan 10mg IV x1 given in ER 2) Will maintain 2 large bore IV's 3) Emergent EGD now for further evaluation 4) Continue Protonix gtt 5) Further recommendations to follow EGD.
[2016-12-04] MEDS ORDERED: PROPOFOL IV EMULSION 10 MG/ML 20 ML VIAL IV ONE (22:27)
[2016-12-04] MEDS ORDERED: FENTANYL CITRATE INJ 50 MCG/1 ML 2 ML VIAL ONE (22:27)
[2016-12-04] MEDS ORDERED: LIDOCAINE HCL 2% 2 ML VIAL (20MG/ML) ONE (22:27)
[2016-12-04] MEDS ORDERED: MIDAZOLAM HCL 1 MG/ML 2ML VIAL ONE (22:27)
[2016-12-04] MEDS ORDERED: SUCCINYLCHOLINE CHLORIDE 20 MG/ML 10 ML VIAL IV ONE (22:40)
[2016-12-04] MEDS ORDERED: ONDANSETRON INJ 2 MG/ML 2 ML VIAL ONE (23:02)
--- NOTE | 2016-12-04 23:08 | Critical Care Consultation ---
Critical Care Consultation Date of Consultation: Dec 04, 2016. 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 Pt was experiencing increasing weakness and rigors since discharge. Pt had been in November 29 (5 days ago) for similar issues. At which time patient was seen by Dr. Ma who identified a vessel with in ulcer on the gastric body that was opposite of patient's prior anastomosis. It was injected with epinephrine and ablated with a heat probe. No bleeding was seen at the end of this patient's procedure. At which time he was later discharged on twice daily proton pump inhibitor therapy. I was able to briefly visit and examine the patient while in the emergency department in [place]. He was resting with a nonrebreather in a Trendelenburg position and receiving 2 units of blood. I was called by the emergency department physician to accept the patient. Upon presentation in the emergency department patient was resuscitated with 2 L of fluid secondary to hypotension and tachycardia; which did not provide adequate improvement of the patient's presentation. An i-STAT hemoglobin resulted at 5.1. Repeat laboratory studies resulted hemoglobin of 6. Pts prior hemoglobin on last admission as 11. Patient is O- and was ordered 2 units of packed red blood cells. Patient is to receive 2 more intraoperatively for a total of 4 units of packed red blood cells. At this point patient has received Zantac and Protonix. He is being taken to the operating room by Dr. Yeung Case hand lens polisher. I was told that Dr. Sears, general surgeon, is religious education coordinator and waiting to help if needed. Patient was in very good spirits and was joking with me throughout examination. , daughter, and daughter's boyfriend were at bedside. was mildly upset that she was not aware of patient's presenting symptoms prior to coming to the hospital. Her daughter, Iliana, repeatedly encouraged mom to calm down and not be "passive-aggressive" in dealing with the situation. The situation was diffused and I told family I would speak with them again after the procedure. Spoke with anesthesiologist, who reports easy airway and the patient underwent general anesthesia of propofol 150 mg, fentanyl 30 g, Versed 2 mg secondary to having eaten recently. EGD per Dr. Gamal benton demonstrated repeat bleeding at the same site previously treated earlier this week. EBL was 25 mL. Patient remains stable and normotensive throughout procedure. He returned to the ICU at about 2320 extubated and drowsy. Patient opens eyes and states he feels okay. Spoke with Dr. Gamal Benton who recommends Carafate once patient is more alert and able to take; nothing by mouth overnight with possible clear liquids in the morning, and Protonix drip for 72 hours. Patient underwent stress echo on September 23, 2016 that was negative for ischemia or chest pain. During resting echocardiogram Ejection fraction was determined to be 60%. There was no evidence of wall motion abnormality. Left atrial and right ventricle size were normal, as was function. Trace mitral regurgitation was noted. Follows with [facility]. Patient denied fever or generalized pain. He denied difficulty breathing, cough , or dyspnea. He denied chest pain/pressure or awareness of tachyarrhythmia. Patient does have a history of palpitations. He denied GI upset or abdominal pain. He does state that he had a black stool today and has been feeling dizzy and lightheaded. Past Medical/Surgical History Medical Problems: Gastrointestinal stromal tumor malignant GI bleed Abdominal pain Anemia Exertional hypotension History of gastrointestinal hemorrhage History of syncope History of cellulitis Palpitation Surgical Problems: H/O abdominal surgery Appendectomy Resection\\gastrojejunostomy 2014 Family History No pertinent family history Family history of acute myocardial infarction, prostate cancer, Chadd's syndrome , coronary artery disease Social History Smoking Status: Never Smoker Alcohol Use: none Drug Use: none Marital Status: Housing Status: lives with family Occupation Status: employed Allergies Coded Allergies: Penicillins (Verified Allergy, Intermediate, RASH, 12/04/16) Home Medications Scheduled Cyanocobalamin (Vitamin B12), 1,000 MG PO DAILY Ferrous Sulfate ( Ferrous Sulfate), 650 MG PO BID Omeprazole (Prilosec), 40 MG PO BID Current Inpatient Medications Current Inpatient Medications Medications (Trade) Dose Ordered Sig/Esther Route Start Time Stop Time Status Last Admin Dose Admin Pantoprazole Sodium 40 mg/ Dextrose 100 ml @ 20 mls/hr Q5H IV 12/04/16 21:30 12/05/16 02:29 12/04/16 21:55 20 MLS/HR Lorazepam (Ativan Inj) 0.5 mg Q4H PRN IV 12/04/16 22:00 01/03/17 21:59 Pantoprazole Sodium (Protonix IV Bolus/Drip) 1 ea NOW STAT IV 12/04/16 21:56 12/04/16 21:57 UNV Morphine Sulfate (MoRPHine SULFATE INJ) 4 mg Q2H PRN IV 12/04/16 22:00 12/18/16 21:59 Potassium Chloride/Sodium Chloride 1,000 ml @ 100 mls/hr Q10H IV 12/04/16 22:15 01/03/17 22:14 UNV Review of Systems 12 systems reviewed and negative other than previously mentioned in the HPI. Physical Exam Date Time Temp Pulse Resp B/P (MAP) Pulse Ox O2 Delivery O2 Flow Rate FiO2 12/04/16 21:45 36.8 92 18 113/66 100 15.0 12/04/16 21:45 36.8 96 20 113/66 100 15.0 12/04/16 21:40 36.6 97 18 107/69 100 15.0 12/04/16 21:40 36.6 99 17 107/69 100 15.0 12/04/16 21:19 88 12/04/16 20:50 36.8 121 20 97/59 100 Room Air Vital Signs - as noted Laboratory Data - as noted Physical Exam: General - NAD Eyes - PERRL, EOMI No icterus, gaze conjugate ENT - Mucosa dry, no lesions or candidiasis Neck - Supple, trachea midline, no masses or lymphadenopathy, no JVD or bruits Lungs - No paradoxical chest wall movement, clear to auscultation bilaterally, no wheezes, rales, or rhonchi Heart - Reg rate and rhythm, No murmur, rubs, clicks, or gallops appreciated Abdomen - BS present, no bruits noted, tympanic to percussion, soft, nontender, nondistended, no organomegaly Extremities - No edema, pedal pulses intact Neuro - A&OX4 Strength: Moving all extremities appropriately Reflexes:Normal and equal CN:PERRL, EOMI, no facial asymmetry, uvula/tongue midline Laboratory Results Last 24 Hours Test 12/04/16 21:03 12/04/16 21:13 White Blood Count 7.97 K/uL Red Blood Count 2.04 M/uL Hemoglobin 6.0 g/dL Hematocrit 17.3 % Mean Corpuscular Volume 84.8 fL Mean Corpuscular Hemoglobin 29.4 pg Mean Corpuscular Hemoglobin Concent 34.7 g/dl Platelet Count 233 K/uL Mean Platelet Volume 11.7 fL Neutrophils (%) (Auto) 68.9 % Lymphocytes (%) (Auto) 24.0 % Monocytes (%) (Auto) 3.9 % Eosinophils (%) (Auto) 2.5 % Basophils (%) (Auto) 0.4 % Neutrophils # (Auto) 5.50 K/uL Lymphocytes # (Auto) 1.91 K/uL Monocytes # (Auto) 0.31 K/uL Eosinophils # (Auto) 0.20 K/uL Basophils # (Auto) 0.03 K/uL RDW Standard Deviation 42.3 fL RDW Coefficient of Variation 13.9 % Immature Granulocyte % (Auto) 0.3 % Immature Granulocyte # (Auto) 0.02 K/uL Polychromasia 1+ Prothrombin Time 11.9 SECONDS Prothromb Time International Ratio 1.1 Activated Partial Thromboplast Time 18.2 SECONDS Partial Thromboplastin Ratio 0.7 Sodium Level 141 mmol/L Potassium Level 3.5 mmol/L Chloride Level 108 mmol/L Carbon Dioxide Level 24 mmol/L Anion Gap 9.0 mmol/L 20.0 mmol/L Blood Urea Nitrogen 30 mg/dl Creatinine 0.92 mg/dl Est Creatinine Clear Calc Drug Dose 103.1 ml/min Estimated GFR () 110.4 Estimated GFR (Non- 95.3 BUN/Creatinine Ratio 32.3 Random Glucose 148 mg/dl Calcium Level 7.8 mg/dl Total Bilirubin 0.5 mg/dl Direct Bilirubin 0.1 mg/dl Aspartate Amino Transf (AST/SGOT) 15 U/L Alanine Aminotransferase (ALT/SGPT) 20 U/L Alkaline Phosphatase 53 U/L Total Creatine Kinase 71 U/L Creatine Kinase MB 1.0 ng/ml Creatine Kinase MB Ratio 1.4 Troponin I < 0.015 ng/ml Total Protein 4.8 gm/dl Albumin 2.6 gm/dl Lipase 218 U/L Bedside Hemoglobin 5.1 g/dl Bedside Hematocrit 15 % Bedside Sodium 139 mEq/L Bedside Potassium 3.5 mEq/L Bedside Chloride 102 mEq/L Bedside Total CO2 21 mEq/l Bedside Blood Urea Nitrogen 28 mg/dl Bedside Creatinine 0.9 mg/dl Bedside Glucose (other) 143 mg/dl Bedside Ionized Calcium (Christiano) 1.09 mmol/l Diagnostic Results No imaging this Admission Assessment & Plan (1) Hypotension (2) GI bleed (3) Gastrointestinal stromal tumor (4) H/O abdominal surgery PLAN: Heme: * Acute GI bleed hemoglobin 5.1-6 * Trend H&H every 4h * Patient to receive 4 units of packed red blood cells; will order to a fresh frozen plasma and one of cryoprecipitate * Continue resuscitation efforts in a 4-2-1 ratio * Will monitor patient status for possible need of internal jugular transducer for high flow resuscitation * Will currently hold on this based on clinical improvement in the emergency department with 2 units of packed red blood cells GI/Nutrition: * Patient taken to operating room by Dr. Benton * Will continue Protonix drip for GI bleeding 72 hours per GI * Nothing by mouth overnight * Advanced to clear liquids when approved by GI * Monitor blood volume based on HEENT section above * Add Carafate in the morning; when patient is more alert Resp: * Supplemental oxygen as required; currently on room air with adequate saturations * Monitor for signs of TRALI/TACO * Fever, changes in blood pressure, changes in lung sounds: Alert provider immediately * Monitor pulse ox Fluids/Renal: * Patient received 2 L resuscitation in the emergency department & and 4 units packed red blood cells * Monitor daily PRP * Strict I's and O's Neuro: * Patient currently reports no pain * Tylenol for fever * Monitor for neurologic changes CV: * Patient presented with sinus tachycardia in the 120s, then was trending in the mid to high 90s * Monitor on telemetry * Trend troponin * Obtain baseline EKG * Monitor for s/s of AMI ID: * Afebrile, Without leukocytosis * No history of known varices * No current indication for broad-spectrum antibiotics * Monitor fever curve Endocrine: * Accu-Checks per protocol, started insulin infusion for 2 blood sugars greater than 180 * No known history of diabetes or thyroid disorder * Accu-Cheks before meals and at bedtime CCT: 45 Minutes; This time is exclusive of all separately billable procedures. Thank you for involving us in the care of this patient. Please refer to Dr. Yony Martínez addendum for further recommendations.
--- NOTE | 2016-12-04 23:17 | GI REPORT ---
Procedure Date: 12/04/2016 10:13 PM Procedure: Upper GI endoscopy Indications: Acute post hemorrhagic anemia, Melena Medicines: General Anesthesia Complications: No immediate complications. Estimated Blood Loss: Estimated blood loss: 25 mL. Procedure: Pre-Anesthesia Assessment: - Prior to the procedure, a History and Physical was performed, and patient medications and allergies were reviewed. The patient's tolerance of previous anesthesia was also reviewed. The risks and benefits of the procedure and the sedation options and risks were discussed with the patient. All questions were answered, and informed consent was obtained. Prior Anticoagulants: The patient has taken no previous anticoagulant or antiplatelet agents. ASA Grade Assessment: E - Emergency. After reviewing the risks and benefits, the patient was deemed in satisfactory condition to undergo the procedure. After obtaining informed consent, the endoscope was passed under direct vision. Throughout the procedure, the patient's blood pressure, pulse, and oxygen saturations were monitored continuously. The Scope was introduced through the mouth, and advanced to the second part of duodenum. The patient tolerated the procedure well. The upper GI endoscopy was accomplished without difficulty. Findings: The esophagus was normal. Evidence of a patent Billroth I gastroduodenostomy was found. A gastric pouch with a normal size was found containing blood and food debris. The gastroduodenal anastomosis was characterized by ulceration with oozing of blood from visible vessel. This was traversed. Area was successfully injected with 2 mL of a 1:10,000 solution of epinephrine for hemostasis. Fulguration to ablate the lesion to prevent bleeding by heater probe was successful. Impression: - Normal esophagus. - Patent Billroth I gastroduodenostomy was found, characterized by ulceration. Injected. Treated with a heater probe. - No specimens collected. Recommendation: - Admit the patient to ICU for ongoing care. - NPO today. - Give Protonix (pantoprazole): initiate therapy with 80 mg IV bolus, then 8 mg/hr IV by continuous infusion for 3 days. - Use sucralfate suspension 1 gram PO QID for 10 days. Gamal Min DO 12/04/2016 11:17:11 PM This report has been signed electronically. Note Initiated On: 12/04/2016 10:13 PM I attest to the content of the Intraoperative Record and orders documented therein, exceptions below
[2016-12-04 23:20] VITALS: BP 118/70; PULSE 97; TEMP 36.9; O2SAT 100
[2016-12-04 23:30] VITALS: BP 116/72; PULSE 96; TEMP 36.9; O2SAT 100
[2016-12-04 23:34] VITALS: BP 116/72; PULSE 96; TEMP 36.9; O2SAT 100
--- NOTE | 2016-12-04 23:37 | Anesthesiology Progress Note ---
Anesthesia Post Op Note Date & Time Dec 04, 2016 at 23:36 Vital Signs Pain Intensity: 0 Vital Signs Past 12 Hours Date Time Temp Pulse Resp B/P (MAP) Pulse Ox O2 Delivery O2 Flow Rate FiO2 12/04/16 23:30 96 16 115/70 100 Nasal Cannula 4 12/04/16 23:25 102 16 88/72 100 Nasal Cannula 4 12/04/16 23:20 36.9 97 16 118/70 100 4.0 12/04/16 23:15 36.9 97 16 118/70 100 Nasal Cannula 4 12/04/16 21:45 36.8 92 18 113/66 100 15.0 12/04/16 21:45 36.8 96 20 113/66 100 15.0 12/04/16 21:40 36.6 97 18 107/69 100 15.0 12/04/16 21:40 36.6 99 17 107/69 100 15.0 12/04/16 21:19 88 12/04/16 20:50 36.8 121 20 97/59 100 Room Air Notes Mental Status: alert / awake / arousable, participated in evaluation Pt Amnestic to Procedure: Yes Nausea / Vomiting: adequately controlled Pain: adequately controlled Airway Patency, RR, SpO2: stable & adequate BP & HR: stable & adequate Hydration State: stable & adequate Anesthetic Complications: no major complications apparent Pt was transported to ICU with O2 and monitors. Pt was stable throughout. Report was given to ICU team. Care transferred to ICU
[2016-12-04 23:45] VITALS: BP 116/74; PULSE 89; O2SAT 100
--- NOTE | 2016-12-04 23:53 | EMERGENCY ROOM VISIT NOTE ---
History Report prepared by Roel: Facundo Cheema Under the Supervision of: Dr. Hermilo Erwin M.D. First contact with patient: 21:02 Chief Complaint: RECTAL BLEEDING Stated Complaint: GI BLEED History of Present Illness The patient is a pale 50 year old male who presents to the Emergency Room with complaints of a persistent illness that started this morning. Currently, the patient says that he is not feeling well. Per the nursing staff, the patient had an endoscopy 5 days ago for a recent GI bleed. The patient started feeling "off" and increasingly weak 2 days ago, and today around 4 hours ago, became lightheaded and dizzy. He adds that he had an episode of black tarry stools this morning. Currently, the patient says he is sweating. The patient states that he did not have a blood transfusion this week during the endoscopy. He notes that he had a stomach tumor, which was resected a year and a half ago. He thinks this is the source of all his problems with GI bleeds. The patient had a GI bleed the week after getting home from the hospital after the resection. He notes that he took his Prilosec 40 mg this morning. Pt denies LOC, headache, fevers, chills, visual changes, neck pain, chest pain, breathing difficulties, recent vomiting, abdominal pain, back pain, hematochezia, urinary symptoms, numbness, lymphadenopathy, rash, or other complaints. Source of History: patient, nursing staff Onset: 4 hours ago Position: other (global - illness) Timing: other (persistent) Associated Symptoms: + diaphoresis, + melena, + weakness Note: Associated symptoms: Lightheaded, dizzy, pale. Review of Systems See HPI for pertinent positives and negatives. A total of ten systems were reviewed and were otherwise negative. Past Medical & Surgical Medical Problems: (1) Gastrointestinal stromal tumor (2) GI bleed Surgical Problems: (1) H/O abdominal surgery Family History No pertinent family history Social History Smoking Status: Never Smoker Alcohol Use: none Drug Use: none Marital Status: Housing Status: lives with family Occupation Status: employed Current/Historical Medications Scheduled Cyanocobalamin (Vitamin B12), 1,000 MG PO DAILY Ferrous Sulfate (Kp Ferrous Sulfate), 650 MG PO BID Omeprazole (Prilosec), 40 MG PO BID Allergies Coded Allergies: Penicillins (Verified Allergy, Intermediate, RASH, 8/6/17) Physical Exam Vital Signs Date Time Temp Pulse Resp B/P (MAP) Pulse Ox O2 Delivery O2 Flow Rate FiO2 12/04/16 21:45 36.8 92 18 113/66 100 15.0 12/04/16 21:45 36.8 96 20 113/66 100 15.0 12/04/16 21:40 36.6 97 18 107/69 100 15.0 12/04/16 21:40 36.6 99 17 107/69 100 15.0 12/04/16 21:19 88 12/04/16 20:50 36.8 121 20 97/59 100 Room Air Physical Exam GENERAL: Awake, alert, ill appearing in severe distress. HENT: Normocephalic, atraumatic. Oropharynx unremarkable. EYES: Pale conjunctiva. Sclera non-icteric. NECK: Supple. No nuchal rigidity. FROM. No JVD. RESPIRATORY: Clear to auscultation. CARDIAC: Tachycardic rate, normal rhythm. Extremities warm and well perfused. Pulses equal. ABDOMEN: Soft, non-distended. No tenderness to palpation. No rebound or guarding. No masses. RECTAL: Deferred. MUSCULOSKELETAL: Chest examination reveals no tenderness. The back is symmetrical on inspection without obvious abnormality. There is no CVA tenderness to palpation. No joint edema. LOWER EXTREMITIES: Calves are equal size bilaterally and non-tender. No edema. No discoloration. NEURO: Normal sensorium. No sensory or motor deficits noted. SKIN: Skin is cool and diaphoretic. Medical Decision & Procedures Laboratory Results 12/04/16 21:03 Red Blood Count 2.04, Mean Corpuscular Volume 84.8, Mean Corpuscular Hemoglobin 29.4, Mean Corpuscular Hemoglobin Concent 34.7, Mean Platelet Volume 11.7, Neutrophils (%) (Auto) 68.9, Lymphocytes (%) (Auto) 24.0, Monocytes (%) (Auto) 3.9, Eosinophils (%) (Auto) 2.5, Basophils (%) (Auto) 0.4, Neutrophils # (Auto) 5.50, Lymphocytes # (Auto) 1.91, Monocytes # (Auto) 0.31, Eosinophils # (Auto) 0.20, Basophils # (Auto) 0.03 12/04/16 21:03 Test 12/04/16 21:03 12/04/16 21:13 White Blood Count 7.97 K/uL (4.8-10.8) Red Blood Count 2.04 M/uL (4.7-6.1) Hemoglobin 6.0 g/dL (14.0-18.0) Hematocrit 17.3 % (42-52) Mean Corpuscular Volume 84.8 fL (80-100) Mean Corpuscular Hemoglobin 29.4 pg (25-34) Mean Corpuscular Hemoglobin Concent 34.7 g/dl (32-36) Platelet Count 233 K/uL (130-400) Mean Platelet Volume 11.7 fL (7.4-10.4) Neutrophils (%) (Auto) 68.9 % Lymphocytes (%) (Auto) 24.0 % Monocytes (%) (Auto) 3.9 % Eosinophils (%) (Auto) 2.5 % Basophils (%) (Auto) 0.4 % Neutrophils # (Auto) 5.50 K/uL (1.4-6.5) Lymphocytes # (Auto) 1.91 K/uL (1.2-3.4) Monocytes # (Auto) 0.31 K/uL (0.11-0.59) Eosinophils # (Auto) 0.20 K/uL (0-0.5) Basophils # (Auto) 0.03 K/uL (0-0.2) RDW Standard Deviation 42.3 fL (36.4-46.3) RDW Coefficient of Variation 13.9 % (11.5-14.5) Immature Granulocyte % (Auto) 0.3 % Immature Granulocyte # (Auto) 0.02 K/uL (0.00-0.02) Polychromasia 1+ Prothrombin Time 11.9 SECONDS (9.0-12.0) Prothromb Time International Ratio 1.1 (0.9-1.1) Activated Partial Thromboplast Time 18.2 SECONDS (21.0-31.0) Partial Thromboplastin Ratio 0.7 Est Creatinine Clear Calc Drug Dose 103.1 ml/min Estimated GFR () 110.4 Estimated GFR (Non- 95.3 BUN/Creatinine Ratio 32.3 (10-20) Calcium Level 7.8 mg/dl (8.5-10.1) Total Bilirubin 0.5 mg/dl (0.2-1) Direct Bilirubin 0.1 mg/dl (0-0.2) Aspartate Amino Transf (AST/SGOT) 15 U/L (15-37) Alanine Aminotransferase (ALT/SGPT) 20 U/L (12-78) Alkaline Phosphatase 53 U/L (45-117) Total Creatine Kinase 71 U/L (39-308) Creatine Kinase MB 1.0 ng/ml (0.5-3.6) Creatine Kinase MB Ratio 1.4 (0-3.0) Troponin I < 0.015 ng/ml (0-0.045) Total Protein 4.8 gm/dl (6.4-8.2) Albumin 2.6 gm/dl (3.4-5.0) Lipase 218 U/L (73-393) Bedside Hemoglobin 5.1 g/dl (14.0-18.0) Bedside Hematocrit 15 % (42-52) Bedside Sodium 139 mEq/L (135-144) Bedside Potassium 3.5 mEq/L (3.3-5.0) Bedside Chloride 102 mEq/L (101-112) Bedside Total CO2 21 mEq/l (24-31) Anion Gap 20.0 mmol/L (16-25) Bedside Blood Urea Nitrogen 28 mg/dl (7-18) Bedside Creatinine 0.9 mg/dl (0.6-1.3) Bedside Glucose (other) 143 mg/dl (70-99) Bedside Ionized Calcium (Christiano) 1.09 mmol/l (1.12-1.32) Laboratory results reviewed by me Medications Administered Medications (Trade) Dose Ordered Sig/[facility] Route Start Time Stop Time Status Last Admin Dose Admin Sodium Chloride 1,000 ml @ 999 mls/hr Q1H1M STAT IV 12/04/16 21:02 12/04/16 22:02 DC 12/04/16 21:56 999 MLS/HR Ranitidine HCl (zANTac IV) 50 mg NOW STAT IV 12/04/16 21:21 12/04/16 21:22 DC 12/04/16 21:55 50 MG Pantoprazole Sodium 80 mg/ Dextrose 120 ml @ 480 mls/hr NOW STAT IV 12/04/16 21:27 12/04/16 21:41 DC 12/04/16 21:55 480 MLS/HR Pantoprazole Sodium 40 mg/ Dextrose 100 ml @ 20 mls/hr Q5H IV 12/04/16 21:30 12/05/16 02:29 12/04/16 21:55 20 MLS/HR Metoclopramide HCl (Reglan Inj) 10 mg STK-MED ONCE .ROUTE 12/04/16 22:00 12/04/16 22:01 DC 12/04/16 22:01 10 MG ED Course 2101: Ordered NSS 1000 ml @ 999 mls/hr IV. 2104: The patient was evaluated in room B9. A complete history and physical exam was performed. 2115: The nursing staff is putting in the patient's third IV. 2118: I discussed the patient with Dr. Min - [facility] [place] Gastroenterology - he will review the patient's history and will determine what to do next. 2120: Ordered Protonix IV Bolus/Drip 1 ea IV, Zantac IV 50 mg. 2123: I reevaluated the patient and talked to the patient's daughter. 2126: Ordered Pantoprazole Sodium 80 mg/Dextrose 120 ml @ 480 mls/hr IV. 2129: Ordered Pantoprazole Sodium 40 mg/Dextrose 100 ml @ 20 mls/hr IV. 2133: I discussed the patient with Dr. Lujan - [facility] [place] hospice administrator - he is aware of the patient. 2143: I discussed the patient with Dr. Sears - [facility] [place] General Surgery - he is on standby. 2151: I reevaluated the patient and he is feeling better with the blood. 2155: I reevaluated the patient and Dr. Min will take the patient to do an endoscopy now. The patient is agreeable with the plan. 2207: I discussed the patient with Joan Ames PA-C for Dr. Martínez ([facility] [place] [facility] men's leather dress belt maker) - Dr. Martinez is seeing the patient now. Medical Decision Prior records/ancillary studies reviewed. Triage Nursing notes reviewed and agree them. The patient's history was concerning for possible gastrointestinal bleeding. He was very ill-appearing. Differential diagnosis: Etiologies such as recurrent GI bleed from prior visible vessel on endoscopy, diverticulosis, AVM, coagulopathy, malignancy,Chrissie-Beck tear, esophagitis, peptic ulcer disease, variceal bleed, gastritis, as well as others were entertained. Physical exam: As above. The patient was critically ill. He was hypotensive, tachycardic, pale. The patient's blood pressure was 60/33. ER treatment provided: The patient had 2 large-bore IVs established emergently. 2 L of normal saline were given via pressure bag. This did help with the patient's blood pressure. The patient was typed and crossed for 4 units of blood. He was consented. Third IV started. Patient was initially given 2 units of type O negative blood. Additional IV fluid. IV Zantac. IV Protonix bolus and drip On reassessment the patient felt better. Diagnostics interpreted by me: ECG: As above. The labs revealed a profound anemia on i-STAT of 5.1. This is confirmed by CBC with a hemoglobin of 6.0. Chemistry is unremarkable. The patient has a profound upper GI bleed. He was resuscitated with IV fluids and transfused blood emergently. He was frequently reassessed and monitored continuously. He gradually improved. Consultation: A consultation was placed with gastroenterology(Dr. Min), surgery(Dr. Sears) , the hospitalist(Dr. Lujan), and critical care(Dr. Martínez). The case was discussed and diagnostics were reviewed with each steamer tender. The patient was evaluated in the ER for further treatment by gastroenterology, internal medicine , and critical care. The patient was taken emergently to the operative suite for intervention by gastroenterology and then admission to the intensive care unit by internal medicine and critical care. Medication Reconcilliation Current Medication List: was personally reviewed by me Blood Pressure Screening Patient's blood pressure: Normal blood pressure Blood pressure disposition: Did not require urgent referral Consults Time Called: 2114 Consulting Physician: Dr. Pako [facility] Gastroenterology Returned Call: 2118 I discussed the patient with Dr. Pako [facility] Gastroenterology - he will review the patient's history and will determine what to do next. Additional Consults: Time Called: 2129 Consulted Physician: Dr. Tai CARDONA hospice administrator Returned Call: 2133 Additional Comments: I discussed the patient with Dr. Tai CARDONA hospice administrator - he is aware of the patient. Time Called: 2139 Consulted Physician: Dr. Orion CARD[facility] General Surgery Returned Call: 2143 Additional Comments: I discussed the patient with Dr. Orion CARDONA General Surgery - he is on standby. Impression Primary Impression: Upper GI bleed Additional Impression: Severe anemia Critical Care I have personally spent greater than 75 minutes of critical care time in the direct management of this patient. This includes bedside care, interpretation of diagnostic studies, and testing, discussion with consultants, patient, and family members, and other required patient management activities. This 75 minutes is in excess of all separately billable procedures. Scribe Attestation The scribe's documentation has been prepared under my direction and personally reviewed by me in its entirety. I confirm that the note above accurately reflects all work, treatment, procedures, and medical decision making performed by me. Departure Information Dispostion Being Evaluated By Hospitalist Referrals Kyrie Romero M.D. (PCP) Patient Instructions My [facility] Problem Qualifiers
[2016-12-05] VITALS (37 sets, daily range): BP systolic 90–129; BP diastolic 61–84; PULSE 63–92; TEMP 36.5–37.1; O2SAT 95–100; Ht 182.9 cm; Wt 82.0 kg
[2016-12-05 02:07] LABS: HEMATOCRIT 26.5 % (42-52)
[2016-12-05] MEDS: NSS + 20MEQ KCL 1000ML 1,000 ML IV SCH ×2 (02:20→12:02)
[2016-12-05 02:38] LABS: URINE APPEARANCE CLEAR (CLEAR); URINE BILIRUBIN NEG (NEG); URINE COLOR YELLOW; URINE NITRITE NEG (NEG); UROBILINOGEN NEG (NEG)
[2016-12-05 02:54] LABS: MANUAL MICROSCOPIC REQUIRED? NO; REVIEW REQ? NO
[2016-12-05] MEDS: PANTOprazole INJ 40 MG in DEXTROSE 5% 100ML IV SCH ×4 (03:24→18:31)
[2016-12-05 05:03] LABS: BASO % 0.3 %; BASO ABS # 0.04 K/uL (0-0.2); HEMATOCRIT 24.1 % (42-52); IG% 0.2 %; LYMPH % 13.6 %; LYMPH ABS # 1.71 K/uL (1.2-3.4); MEAN CORPUSCULAR HEMOGLOBIN 28.6 pg (25-34); MEAN PLATELET VOLUME 11.6 fL (7.4-10.4); MONO % 6.2 %; NEUT % 78.7 %; PLATELET COUNT 162 K/uL (130-400); RED BLOOD COUNT 2.87 M/uL (4.7-6.1)
[2016-12-05 05:05] LABS: BLOOD UREA NITROGEN 28 mg/dl (7-18); BUN/CREATININE RATIO 44.4 (10-20); CALCIUM 7.7 mg/dl (8.5-10.1); CARBON DIOXIDE 27 mmol/L (21-32); CHLORIDE 111 mmol/L (98-107); CREATININE 0.63 mg/dl (0.60-1.40); GLUCOSE 99 mg/dl (70-99); MAGNESIUM 1.8 mg/dl (1.8-2.4); POTASSIUM 3.9 mmol/L (3.5-5.1); SODIUM 142 mmol/L (136-145)
[2016-12-05 06:50] LABS: COMPLETE YES
[2016-12-05] MEDS: SUCRALFATE 1 GM TAB PO SCH ×2 (08:15→12:02)
--- NOTE | 2016-12-05 10:52 | Critical Care Progress Note ---
Critical Care Progress Note Date of Service Dec 05, 2016. ICU Day ICU Day Number: [address] Mckenna Subjective Patient is a 50-year-old male who presented overnight with an upper GI bleed. The patient was taken emergently to the endoscopy suite where cauterization was performed of a bleeding ulcer. 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 The patient had a postoperative bleed approximately 2 weeks after his initial surgical intervention. He had done very well until last week. He was seen in this facility and had a cauterization performed. He had been doing well until Monday and Monday when he noticed he was lightheaded with changes in position. He also noticed melanotic stools. Last evening, he came to the emergency department and was found to be significantly anemic with an H&H of 5 and 15. He underwent endoscopy with cauterization. He had 4 units of packed red bloods as well as 2 units FFP, and 1 unit cryoprecipitate. Patient reports no events overnight. He reports that he feels well. He denies any complaints of pain rating his discomfort a 0/10. He denies any headaches, dizziness, lightheadedness, chest pain, palpitations, belching, nausea, vomiting, abdominal pain, hematuria, or dysuria. He's not had a bowel movement since arrival to the ICU. Objective VITAL SIGNS - Vital signs and nursing notes were reviewed. GENERAL - 50-year-old male appearing his stated age who is in no acute distress. Communicates well with provider and answers questions appropriately. EYES - No conjunctival pallor appreciated. LUNGS - Chest wall symmetric without accessory muscle use, intercostals retractions, or central cyanosis. Normal vesicular breath sounds CTA B/L. No wheezes, rales, or rhonchi appreciated. CARDIAC - RRR with S1/S2. No murmur, rubs, or gallops appreciated. ABDOMEN - Abdominal contour flat and without pulsations or visible masses. BS normoactive all four quadrants. No tenderness to palpation appreciated throughout. No guarding. No Rebound Tenderness. No palpable masses, hepatosplenomegaly, or ascites noted. EXTREMITIES - No clubbing or peripheral cyanosis. No pretibial edema present. +3 /5 radial and dorsalis pedis pulses palpated throughout. PSYCH - A&Ox3 and cooperates fully with examiner. Pt is very pleasant and interacts well with examiner. Current SOFA Score SOFA Score Response (Comments) Value Platelets (x10) > 150 0 Bilirubin (mg/dL) < 1.2 0 Milton Coma Score 15 0 Level of Hypotension No Hypotension 0 Creatinine (mg/dL) < 1.2 0 Total 0 Assessment & Plan (1) Hypotension (2) GI bleed (3) Gastrointestinal stromal tumor (4) H/O abdominal surgery Reason Critically Ill: Acute blood loss anemia in the setting of upper GI bleed from bleeding ulcer. HEME - * Acute UGIB. * Status Post 4 units of PRBCs w/ FFP and Cryoprecipitate. * H&H - appears plateaued w/ Hgb of 8.0 x2 - will continue to monitor q4h. Will transfuse if indicated. GI - * Status Post cautery of gastric ulcer bleed. * Continue Protonix gtt. * Carafate added per GI today. * Continue NPO until cleared by GI. Respiratory - * Has not required O2. * Continue to monitor pulse oximetry. * Continue to monitor for posttransfusion reaction (i.e. TRALI/TACO). * Last transfusion nearly 12 hours ago. RENAL/LYTES - * Continue IVFs while NPO. * Monitor I&Os * Replace Lytes as needed. Neuro - * No complaints of pain at this point. * Continue to monitor for any changes. Cardiac - * Tachycardia has seemed to resolve. * Continue to monitor on telemetry. * No elevation of troponins to suggest global ischemia. ID - * Mild elevation of WBCs in the setting of stress reaction. * No fevers. * No indication for antibiotics at this point. * Will continue to monitor for signs/symptoms of infection. ENDO - * Continue to monitor BSGs - ISS as needed. LINES/IV ACCESS - * 2 Large bore PIVs intact. No need for CVL at this point. DVT PROPHYLAXIS - * Will hold chemical prophylaxis 2/2 recent UGI bleeding w/ cautery. * SCDs in place. * OOB w/ ambulation when cleared by GI. I have personally spent 35 minutes of critical care time in the direct management of this patient. This is a life/limb threatening event. This includes time spent evaluating patient, direct bedside care, chart review, placing orders, interpretation of diagnostic studies, discussion with consultants, patient, and family members, as well as other required patient management activities. This time is exclusive of all separately billable procedures, and teaching time and separate from and in addition to any other critical care service time. Thank you for this consultation allow us to be part of this patient's care. Please refer to my attending physician's documentation for any further recommendations. Attending add, the pt seen , examined, chart and notes reviewed and appreciated. for further details refer to my colleague note as above. in summary, this is 50, m, with hx of recurrent GIB, s/p EGD with cautherization and good results. Hct stable at 24, 4 units of blood transfused. on protonix drip, hemodynamically stable, asymptomatic GI bustos serial Hct/Hb ordered, will follow, VSS. S1S2 RRR, lungs are clear, abdomen is benign , previous abdominal surgery , no edema. neuro is non focal. Plan: 1- serial Hct check. 2- continue protonix drip or Bid. GI preference. 3- transfuse if needed, threshold hct 21. 4- venodyne boots. 5- ICU monitoring. discussed with the staff on rounds in details. CCT 45 min. discussed with the pt and his at the bed side in details, all their questions been answered. Consults & Procedures Consultants: Gastroenterology Procedures: None at this point. Data Medications: Current Inpatient Medications Medications (Trade) Dose Ordered Sig/Esther Route Start Time Stop Time Status Last Admin Dose Admin Lorazepam (Ativan Inj) 0.5 mg Q4H PRN IV 12/04/16 22:00 01/03/17 21:59 Morphine Sulfate (MoRPHine SULFATE INJ) 4 mg Q2H PRN IV 12/04/16 22:00 12/18/16 21:59 Potassium Chloride/Sodium Chloride 1,000 ml @ 100 mls/hr Q10H IV 12/04/16 23:30 01/03/17 23:29 12/05/16 02:20 100 MLS/HR Pantoprazole Sodium 40 mg/ Dextrose 100 ml @ 20 mls/hr Q5H IV 12/05/16 02:15 01/04/17 02:14 12/05/16 08:15 20 MLS/HR Sucralfate (Carafate Tab) 1 gm QID PO 12/05/16 09:00 12/05/16 21:01 12/05/16 08:15 1 GM Sucralfate (Carafate Tab) 1 gm BID PO 12/06/16 09:00 01/05/17 08:59 Vital Signs: Date Time Temp Pulse Resp B/P (MAP) Pulse Ox O2 Delivery O2 Flow Rate FiO2 12/05/16 06:00 79 103/70 (84) 96 12/05/16 06:00 79 16 103/70 (81) 96 Room Air 12/05/16 05:00 86 109/70 (83) 96 12/05/16 04:00 71 110/67 (72) 100 12/05/16 04:00 Nasal Cannula 2.0 12/05/16 04:00 71 110/67 (81) 100 12/05/16 03:45 36.8 71 16 113/73 100 2.0 12/05/16 03:30 67 15 107/72 100 2.0 12/05/16 03:15 36.9 63 14 105/77 100 2.0 12/05/16 03:15 63 14 105/77 100 2.0 12/05/16 03:05 36.8 71 16 108/72 100 2.0 12/05/16 03:00 77 110/73 (79) 100 12/05/16 02:30 71 117/71 (79) 100 12/05/16 02:15 72 115/72 (78) 100 12/05/16 02:10 36.9 67 14 111/77 100 2.0 12/05/16 02:00 79 111/77 (89) 100 12/05/16 02:00 36.9 79 15 111/77 (88) 100 Nasal Cannula 2.0 12/05/16 01:45 78 14 111/75 99 2.0 12/05/16 01:32 37.0 75 15 116/76 100 2.0 12/05/16 01:27 70 16 109/74 100 2.0 12/05/16 01:27 37.0 70 14 109/74 100 2.0 12/05/16 01:00 78 112/78 (94) 100 12/05/16 01:00 36.5 78 14 112/78 100 2.0 12/05/16 00:30 78 14 107/75 100 2.0 12/05/16 00:30 77 14 107/75 100 2.0 12/05/16 00:10 Nasal Cannula 4.0 12/05/16 00:00 92 14 117/77 100 2.0 12/05/16 00:00 92 117/77 100 2.0 12/04/16 23:45 89 116/74 100 2.0 12/04/16 23:35 36.8 100 16 116/72 100 Nasal Cannula 4 12/04/16 23:34 36.9 96 14 116/72 100 4.0 12/04/16 23:30 36.9 96 16 116/72 100 4.0 12/04/16 23:30 96 16 115/70 100 Nasal Cannula 4 12/04/16 23:25 102 16 88/72 100 Nasal Cannula 4 12/04/16 23:20 36.9 97 16 118/70 100 4.0 12/04/16 23:15 36.9 97 16 118/70 100 Nasal Cannula 4 12/04/16 21:45 36.8 92 18 113/66 100 15.0 12/04/16 21:45 36.8 96 20 113/66 100 15.0 12/04/16 21:40 36.6 97 18 107/69 100 15.0 12/04/16 21:40 36.6 99 17 107/69 100 15.0 12/04/16 21:19 88 12/04/16 20:50 36.8 121 20 97/59 100 Room Air Laboratory Results: Last 24 Hours Test 12/04/16 21:03 12/04/16 21:13 12/05/16 01:28 12/05/16 02:27 White Blood Count 7.97 K/uL Red Blood Count 2.04 M/uL Hemoglobin 6.0 g/dL 9.0 g/dL Hematocrit 17.3 % 26.5 % Mean Corpuscular Volume 84.8 fL Mean Corpuscular Hemoglobin 29.4 pg Mean Corpuscular Hemoglobin Concent 34.7 g/dl Platelet Count 233 K/uL Mean Platelet Volume 11.7 fL Neutrophils (%) (Auto) 68.9 % Lymphocytes (%) (Auto) 24.0 % Monocytes (%) (Auto) 3.9 % Eosinophils (%) (Auto) 2.5 % Basophils (%) (Auto) 0.4 % Neutrophils # (Auto) 5.50 K/uL Lymphocytes # (Auto) 1.91 K/uL Monocytes # (Auto) 0.31 K/uL Eosinophils # (Auto) 0.20 K/uL Basophils # (Auto) 0.03 K/uL RDW Standard Deviation 42.3 fL RDW Coefficient of Variation 13.9 % Immature Granulocyte % (Auto) 0.3 % Immature Granulocyte # (Auto) 0.02 K/uL Polychromasia 1+ Prothrombin Time 11.9 SECONDS Prothromb Time International Ratio 1.1 Activated Partial Thromboplast Time 18.2 SECONDS Partial Thromboplastin Ratio 0.7 Sodium Level 141 mmol/L Potassium Level 3.5 mmol/L Chloride Level 108 mmol/L Carbon Dioxide Level 24 mmol/L Anion Gap 9.0 mmol/L 20.0 mmol/L Blood Urea Nitrogen 30 mg/dl Creatinine 0.92 mg/dl Est Creatinine Clear Calc Drug Dose 103.1 ml/min Estimated GFR () 110.4 Estimated GFR (Non- 95.3 BUN/Creatinine Ratio 32.3 Random Glucose 148 mg/dl Calcium Level 7.8 mg/dl Total Bilirubin 0.5 mg/dl Direct Bilirubin 0.1 mg/dl Aspartate Amino Transf (AST/SGOT) 15 U/L Alanine Aminotransferase (ALT/SGPT) 20 U/L Alkaline Phosphatase 53 U/L Total Creatine Kinase 71 U/L Creatine Kinase MB 1.0 ng/ml Creatine Kinase MB Ratio 1.4 Troponin I < 0.015 ng/ml Total Protein 4.8 gm/dl Albumin 2.6 gm/dl Lipase 218 U/L Bedside Hemoglobin 5.1 g/dl Bedside Hematocrit 15 % Bedside Sodium 139 mEq/L Bedside Potassium 3.5 mEq/L Bedside Chloride 102 mEq/L Bedside Total CO2 21 mEq/l Bedside Blood Urea Nitrogen 28 mg/dl Bedside Creatinine 0.9 mg/dl Bedside Glucose (other) 143 mg/dl Bedside Ionized Calcium (Christiano) 1.09 mmol/l Urine Color YELLOW Urine Appearance CLEAR Urine pH 5.0 Urine Specific [place] 1.020 Urine Protein NEG Urine Glucose (UA) NEG Urine Ketones NEG Urine Occult Blood NEG Urine Nitrite NEG Urine Bilirubin NEG Urine Urobilinogen NEG Urine Leukocyte Esterase NEG Test 12/05/16 04:37 12/05/16 06:45 12/05/16 08:48 White Blood Count 12.60 K/uL Red Blood Count 2.87 M/uL Hemoglobin 8.2 g/dL 8.0 g/dL Hematocrit 24.1 % Mean Corpuscular Volume 84.0 fL Mean Corpuscular Hemoglobin 28.6 pg Mean Corpuscular Hemoglobin Concent 34.0 g/dl Platelet Count 162 K/uL Mean Platelet Volume 11.6 fL Neutrophils (%) (Auto) 78.7 % Lymphocytes (%) (Auto) 13.6 % Monocytes (%) (Auto) 6.2 % Eosinophils (%) (Auto) 1.0 % Basophils (%) (Auto) 0.3 % Neutrophils # (Auto) 9.92 K/uL Lymphocytes # (Auto) 1.71 K/uL Monocytes # (Auto) 0.78 K/uL Eosinophils # (Auto) 0.12 K/uL Basophils # (Auto) 0.04 K/uL RDW Standard Deviation 42.4 fL RDW Coefficient of Variation 13.9 % Immature Granulocyte % (Auto) 0.2 % Immature Granulocyte # (Auto) 0.03 K/uL Nucleated RBC Absolute Count (auto) 0.03 K/uL Nucleated Red Blood Cells % 0.2 % Red Blood Cell Morphology Unremarkable Sodium Level 142 mmol/L Potassium Level 3.9 mmol/L Chloride Level 111 mmol/L Carbon Dioxide Level 27 mmol/L Anion Gap 4.0 mmol/L Blood Urea Nitrogen 28 mg/dl Creatinine 0.63 mg/dl Est Creatinine Clear Calc Drug Dose 150.6 ml/min Estimated GFR () 131.3 Estimated GFR (Non- 113.3 BUN/Creatinine Ratio 44.4 Random Glucose 99 mg/dl Calcium Level 7.7 mg/dl Phosphorus Level 4.0 mg/dl Magnesium Level 1.8 mg/dl Troponin I < 0.015 ng/ml Bedside Glucose 93 mg/dl Problem Qualifiers (1) Hypotension: Hypotension type: unspecified hypotension type Qualified Codes: I95.9 - Hypotension, unspecified (2) GI bleed: GI bleed type/associated pathology: unspecified gastrointestinal hemorrhage type Qualified Codes: K92.2 - Gastrointestinal hemorrhage, unspecified
--- NOTE | 2016-12-05 13:19 | PROGRESS NOTE ---
DATE: 12/05/2016 AGE: 50 SEX: Male. RACE: . SUBJECTIVE: I had the pleasure of seeing Ralph Painting today at his bedside in the ICU. He states he is feeling much improved. He denies any abdominal pain. He further denies any lightheadedness, dizziness, fevers, chills, nausea, vomiting, hematemesis, melena or hematochezia. He states that he is hungry and would like to have something to eat. REVIEW OF SYSTEMS: Negative x10 system review other than pertinent positives listed in the HPI. PHYSICAL EXAMINATION: VITAL SIGNS: Include a temperature 37.1, pulse 83, respirations 18, blood pressure 118/77, and pulse ox 97% on room air. GENERAL: He is awake and cooperative, no acute distress. HEAD: Normocephalic and atraumatic. EYES: Pupils equally round. Extraocular muscles are intact. ENT: External evaluation of ears and nose is normal. Oropharynx is clear. NECK: Soft and supple. No JVD or lymphadenopathy. CHEST: Clear to auscultation bilaterally. CARDIOVASCULAR SYSTEM: Regular rate and rhythm. ABDOMEN: Soft, nontender, and nondistended. Positive bowel sounds. EXTREMITIES: No clubbing, cyanosis, or edema. LABORATORY STUDIES: From today include an H&H of 8.2 and 24.1. Repeat H&H this morning was 8.0 as well. His BUN and creatinine are 28 and 0.63. IMPRESSION: A 50-year-old male status post endoscopic therapy with epinephrine and heater probe for bleeding anastomotic ulcer. PLAN: At the present time, I would recommend that the patient be continued on Protonix drip at 8 mg per hour for a total of 72 hours. Following that, he will be discharged on Protonix 40 mg p.o. b.i.d. I would also recommend that he be on Carafate 1 gram p.o. q.i.d. a.c. and at bedtime for 10 days. He will need a repeat endoscopy in approximately 12 weeks for further evaluation and to ensure ulcer healing. Once again, thanks for allowing me to participate in the care of this patient. If you have any further questions, please do not hesitate in contacting me.
[2016-12-05 13:30] LABS: HEMATOCRIT 19.8 % (42-52)
[2016-12-05] MEDS: SUCRALFATE 1 GM/10 ML UDC PO SCH ×2 (17:24→21:31)
--- NOTE | 2016-12-05 17:32 | Progress Note ---
Subjective Date of Service: Dec 05, 2016. Subjective Pt evaluation today including: conversation w/ patient, physical exam, chart review, lab review, review of studies, conversation w/ [employer] [facility] consultant Pt resting comfortably in bed Currently undergoing PRBC transfusion No shortness of breath or chest pain noted Problem List Medical Problems: (1) GI bleed Status: Acute (2) Hypotension Status: Acute (3) Severe anemia Status: Acute (4) Upper GI bleed Status: Acute (5) Upper GI bleed Status: Acute Review of Systems Constitutional: No fever, No chills, No sweats, No weight loss Eyes: No worsening of vision, No eye pain, No redness, No discharge Respiratory: No cough, No sputum, No wheezing, No shortness of breath, No dyspnea on exertion Cardiac: No chest pain, No orthopnea, No PND, No edema, No claudication Abdomen: + constipation, No pain, No nausea, No vomiting, No diarrhea Musculoskeletal: No joint pain, No muscle pain, No swelling, No calf pain Male : No dysuria, No urinary frequency, No incontinence, No slowing stream Neurologic: No memory loss, No paralysis, No weakness, No numbness/tingling Psychiatric: No depression symptoms, No anhedonism, No anxiety, No insomnia Skin: No rash, No itch Objective Vital Signs Date Time Temp Pulse Resp B/P (MAP) Pulse Ox O2 Delivery O2 Flow Rate FiO2 12/05/16 17:15 37.1 74 16 129/68 96 12/05/16 16:30 36.9 75 16 110/76 98 12/05/16 16:00 98 Room Air 12/05/16 16:00 36.9 77 18 103/62 (76) 97 Room Air 12/05/16 15:30 36.9 73 90/66 97 12/05/16 14:57 37.1 72 18 106/70 95 12/05/16 14:00 77 18 101/67 (78) 97 Room Air 12/05/16 12:00 97 Room Air 12/05/16 12:00 37.1 83 18 118/77 (91) 97 Room Air 12/05/16 10:00 80 20 113/75 (88) 97 Room Air 12/05/16 08:00 97 Room Air 12/05/16 08:00 Room Air 12/05/16 08:00 36.8 72 18 101/61 (74) 97 Room Air 12/05/16 06:00 79 103/70 (84) 96 12/05/16 06:00 79 16 103/70 (81) 96 Room Air 12/05/16 05:00 86 109/70 (83) 96 12/05/16 04:00 71 110/67 (72) 100 12/05/16 04:00 Nasal Cannula 2.0 12/05/16 04:00 71 110/67 (81) 100 12/05/16 03:45 36.8 71 16 113/73 100 2.0 12/05/16 03:30 67 15 107/72 100 2.0 12/05/16 03:15 36.9 63 14 105/77 100 2.0 12/05/16 03:15 63 14 105/77 100 2.0 12/05/16 03:05 36.8 71 16 108/72 100 2.0 12/05/16 03:00 77 110/73 (79) 100 12/05/16 02:30 71 117/71 (79) 100 12/05/16 02:15 72 115/72 (78) 100 12/05/16 02:10 36.9 67 14 111/77 100 2.0 12/05/16 02:00 79 111/77 (89) 100 12/05/16 02:00 36.9 79 15 111/77 (88) 100 Nasal Cannula 2.0 12/05/16 01:45 78 14 111/75 99 2.0 12/05/16 01:32 37.0 75 15 116/76 100 2.0 12/05/16 01:27 70 16 109/74 100 2.0 12/05/16 01:27 37.0 70 14 109/74 100 2.0 12/05/16 01:00 78 112/78 (94) 100 12/05/16 01:00 36.5 78 14 112/78 100 2.0 12/05/16 00:30 78 14 107/75 100 2.0 12/05/16 00:30 77 14 107/75 100 2.0 12/05/16 00:10 Nasal Cannula 4.0 12/05/16 00:00 92 14 117/77 100 2.0 12/05/16 00:00 92 117/77 100 2.0 12/04/16 23:45 89 116/74 100 2.0 12/04/16 23:35 36.8 100 16 116/72 100 Nasal Cannula 4 12/04/16 23:34 36.9 96 14 116/72 100 4.0 12/04/16 23:30 36.9 96 16 116/72 100 4.0 12/04/16 23:30 96 16 115/70 100 Nasal Cannula 4 12/04/16 23:25 102 16 88/72 100 Nasal Cannula 4 12/04/16 23:20 36.9 97 16 118/70 100 4.0 12/04/16 23:15 36.9 97 16 118/70 100 Nasal Cannula 4 12/04/16 21:45 36.8 92 18 113/66 100 15.0 12/04/16 21:45 36.8 96 20 113/66 100 15.0 12/04/16 21:40 36.6 97 18 107/69 100 15.0 12/04/16 21:40 36.6 99 17 107/69 100 15.0 12/04/16 21:19 88 12/04/16 20:50 36.8 121 20 97/59 100 Room Air Physical Exam General Appearance: WD/WN, no apparent distress Neck: supple, no adenopathy, thyroid normal Respiratory/Chest: chest non-tender, lungs clear, normal breath sounds, no respiratory distress Cardiovascular: no edema, no gallop, no JVD Abdomen: normal bowel sounds, non tender, soft, no organomegaly Neurologic/Psychiatric: no motor/sensory deficits, alert, normal mood/affect, oriented x 3 Laboratory Results Last 24 Hours Test 12/04/16 21:03 12/04/16 21:13 12/05/16 01:28 12/05/16 02:27 White Blood Count 7.97 K/uL Red Blood Count 2.04 M/uL Hemoglobin 6.0 g/dL 9.0 g/dL Hematocrit 17.3 % 26.5 % Mean Corpuscular Volume 84.8 fL Mean Corpuscular Hemoglobin 29.4 pg Mean Corpuscular Hemoglobin Concent 34.7 g/dl Platelet Count 233 K/uL Mean Platelet Volume 11.7 fL Neutrophils (%) (Auto) 68.9 % Lymphocytes (%) (Auto) 24.0 % Monocytes (%) (Auto) 3.9 % Eosinophils (%) (Auto) 2.5 % Basophils (%) (Auto) 0.4 % Neutrophils # (Auto) 5.50 K/uL Lymphocytes # (Auto) 1.91 K/uL Monocytes # (Auto) 0.31 K/uL Eosinophils # (Auto) 0.20 K/uL Basophils # (Auto) 0.03 K/uL RDW Standard Deviation 42.3 fL RDW Coefficient of Variation 13.9 % Immature Granulocyte % (Auto) 0.3 % Immature Granulocyte # (Auto) 0.02 K/uL Polychromasia 1+ Prothrombin Time 11.9 SECONDS Prothromb Time International Ratio 1.1 Activated Partial Thromboplast Time 18.2 SECONDS Partial Thromboplastin Ratio 0.7 Sodium Level 141 mmol/L Potassium Level 3.5 mmol/L Chloride Level 108 mmol/L Carbon Dioxide Level 24 mmol/L Anion Gap 9.0 mmol/L 20.0 mmol/L Blood Urea Nitrogen 30 mg/dl Creatinine 0.92 mg/dl Est Creatinine Clear Calc Drug Dose 103.1 ml/min Estimated GFR () 110.4 Estimated GFR (Non- 95.3 BUN/Creatinine Ratio 32.3 Random Glucose 148 mg/dl Calcium Level 7.8 mg/dl Total Bilirubin 0.5 mg/dl Direct Bilirubin 0.1 mg/dl Aspartate Amino Transf (AST/SGOT) 15 U/L Alanine Aminotransferase (ALT/SGPT) 20 U/L Alkaline Phosphatase 53 U/L Total Creatine Kinase 71 U/L Creatine Kinase MB 1.0 ng/ml Creatine Kinase MB Ratio 1.4 Troponin I < 0.015 ng/ml Total Protein 4.8 gm/dl Albumin 2.6 gm/dl Lipase 218 U/L Bedside Hemoglobin 5.1 g/dl Bedside Hematocrit 15 % Bedside Sodium 139 mEq/L Bedside Potassium 3.5 mEq/L Bedside Chloride 102 mEq/L Bedside Total CO2 21 mEq/l Bedside Blood Urea Nitrogen 28 mg/dl Bedside Creatinine 0.9 mg/dl Bedside Glucose (other) 143 mg/dl Bedside Ionized Calcium (Christiano) 1.09 mmol/l Urine Color YELLOW Urine Appearance CLEAR Urine pH 5.0 Urine Specific [place] 1.020 Urine Protein NEG Urine Glucose (UA) NEG Urine Ketones NEG Urine Occult Blood NEG Urine Nitrite NEG Urine Bilirubin NEG Urine Urobilinogen NEG Urine Leukocyte Esterase NEG Test 12/05/16 04:37 12/05/16 06:45 8/7/17 08:48 12/05/16 12:35 White Blood Count 12.60 K/uL Red Blood Count 2.87 M/uL Hemoglobin 8.2 g/dL 8.0 g/dL 6.7 g/dL Hematocrit 24.1 % 19.8 % Mean Corpuscular Volume 84.0 fL Mean Corpuscular Hemoglobin 28.6 pg Mean Corpuscular Hemoglobin Concent 34.0 g/dl Platelet Count 162 K/uL Mean Platelet Volume 11.6 fL Neutrophils (%) (Auto) 78.7 % Lymphocytes (%) (Auto) 13.6 % Monocytes (%) (Auto) 6.2 % Eosinophils (%) (Auto) 1.0 % Basophils (%) (Auto) 0.3 % Neutrophils # (Auto) 9.92 K/uL Lymphocytes # (Auto) 1.71 K/uL Monocytes # (Auto) 0.78 K/uL Eosinophils # (Auto) 0.12 K/uL Basophils # (Auto) 0.04 K/uL RDW Standard Deviation 42.4 fL RDW Coefficient of Variation 13.9 % Immature Granulocyte % (Auto) 0.2 % Immature Granulocyte # (Auto) 0.03 K/uL Nucleated RBC Absolute Count (auto) 0.03 K/uL Nucleated Red Blood Cells % 0.2 % Red Blood Cell Morphology Unremarkable Sodium Level 142 mmol/L Potassium Level 3.9 mmol/L Chloride Level 111 mmol/L Carbon Dioxide Level 27 mmol/L Anion Gap 4.0 mmol/L Blood Urea Nitrogen 28 mg/dl Creatinine 0.63 mg/dl Est Creatinine Clear Calc Drug Dose 150.6 ml/min Estimated GFR () 131.3 Estimated GFR (Non- 113.3 BUN/Creatinine Ratio 44.4 Random Glucose 99 mg/dl Calcium Level 7.7 mg/dl Phosphorus Level 4.0 mg/dl Magnesium Level 1.8 mg/dl Troponin I < 0.015 ng/ml 0.018 ng/ml Bedside Glucose 93 mg/dl Test 12/05/16 16:03 Assessment and Plan 50 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 Pt was hospitalized on November 29 following an episode of coffee ground emesis and syncope. He presented to the ER light-headed and diaphoretic. He had also reported melanotic stool and anemia with an Hb of 11 was confirmed on intial labs. The pt proceeded to endoscopy where an ulcer an vascular erosion was identified at the site of a previous anastomosis. He returned home 3 days later. He began having some orthostatic symptoms one day prior and then became progressively weak, light headed and rigorous. He reports 2 days of black bowel movements. His initial hemoglobin was confirmed at 5.0. Transfued with 2 units PRBCs on and then brought to endoscopy suite, anastomotic ulceration found on EGD status post endoscopic therapy with epinephrine and heater probe. Cont PPI drip for 3 days total, GI recs carafate 1 gram p.o. q.i.d. a.c. and at bedtime for 10 days. He will need a repeat endoscopy in approximately 12 weeks for further evaluation and to ensure ulcer healing. Full code - SCDs
[2016-12-05 21:12] LABS: HEMATOCRIT 28.5 % (42-52)
[2016-12-06] VITALS (13 sets, daily range): BP systolic 101–130; BP diastolic 61–86; PULSE 64–78; TEMP 36.7–37; O2SAT 94–98
[2016-12-06] MEDS: PANTOprazole INJ 40 MG in DEXTROSE 5% 100ML IV SCH ×6 (00:08→23:17)
[2016-12-06 05:36] LABS: BASO % 0.6 %; BASO ABS # 0.05 K/uL (0-0.2); COMPLETE YES; EOS % 4.7 %; IG% 0.3 %; LYMPH % 17.5 %; LYMPH ABS # 1.56 K/uL (1.2-3.4); MEAN CELL VOLUME 85.8 fL (80-100); MEAN CORPUSCULAR HEMOGLOBIN 28.7 pg (25-34); MEAN CORPUSCULAR HGB CONC 33.4 g/dl (32-36); MEAN PLATELET VOLUME 11.4 fL (7.4-10.4); MONO % 8.7 %; NEUT % 68.2 %; PLATELET COUNT 179 K/uL (130-400); RED BLOOD COUNT 3.38 M/uL (4.7-6.1); WHITE BLOOD COUNT 8.93 K/uL (4.8-10.8)
[2016-12-06 06:23] LABS: BUN/CREATININE RATIO 15.1 (10-20); CALCIUM 8.1 mg/dl (8.5-10.1); CREATININE 0.79 mg/dl (0.60-1.40); MAGNESIUM 2.1 mg/dl (1.8-2.4); POTASSIUM 3.5 mmol/L (3.5-5.1)
[2016-12-06] MEDS: SUCRALFATE 1 GM/10 ML UDC PO SCH ×4 (08:33→21:09)
[2016-12-06] MEDS ORDERED: SUCRALFATE 1 GM TAB PO SCH (09:00)
--- NOTE | 2016-12-06 11:13 | Critical Care Progress Note ---
Critical Care Progress Note Date of Service Dec 06, 2016. ICU Day ICU Day Number: [address] Mckenna Subjective Patient is a 50-year-old male who was admitted to the ICU for upper GI bleed secondary to bleeding ulcer. Patient had upper endoscopy performed with cauterization of the bleeding vessel. Patient has been monitored in the ICU secondary to continued loss anemia. He was transfused a second 2 units of PRBCs yesterday secondary to drop in his H&H to 6.7 and 19.8, respectively. IV fluids were stopped. The patient is tolerating a clear liquid diet. H&H has been stable on 2 separate draws at 9.7 and 29.8. He is been hemodynamically stable. He has not been hypotensive. Patient was reevaluated and had just completed his breakfast. He reports feeling much better at this time. He denies any headaches, dizziness, lightheadedness, chest pain, palpitations, shortness of breath, nausea, vomiting , or abdominal pain. Objective VITAL SIGNS - Vital signs and nursing notes were reviewed. GENERAL - 50-year-old male appearing his stated age who is in no acute distress. Communicates well with provider and answers questions appropriately. EYES - No conjunctival pallor appreciated. LUNGS - Chest wall symmetric without accessory muscle use, intercostals retractions, or central cyanosis. Normal vesicular breath sounds CTA B/L. No wheezes, rales, or rhonchi appreciated. CARDIAC - RRR with S1/S2. No murmur, rubs, or gallops appreciated. ABDOMEN - Abdominal contour flat and without pulsations or visible masses. BS normoactive all four quadrants. No tenderness to palpation appreciated throughout. No guarding. No Rebound Tenderness. No palpable masses, hepatosplenomegaly, or ascites noted. EXTREMITIES - No clubbing or peripheral cyanosis. No pretibial edema present. +3 /5 radial and dorsalis pedis pulses palpated throughout. PSYCH - A&Ox3 and cooperates fully with examiner. Pt is very pleasant and interacts well with examiner. Current SOFA Score SOFA Score Response (Comments) Value Platelets (x10) > 150 0 Bilirubin (mg/dL) < 1.2 0 [place] Coma Score 15 0 Level of Hypotension No Hypotension 0 Creatinine (mg/dL) < 1.2 0 Total 0 Assessment & Plan (1) Hypotension (2) GI bleed (3) Gastrointestinal stromal tumor (4) H/O abdominal surgery Reason Critically Ill: Acute blood loss anemia in the setting of upper GI bleed from bleeding ulcer. HEME - * Acute UGIB. * Received an additional 2 U PRBCs yesterday 2/2 to drop in H&H to 6.7/19.8. - Likely Dilutional. * H&H stable at >9/>29 on 2 separate draws. Will repeat at noon. * If no significant drop, patient can be transferred out of the ICU today. GI - * Status Post cautery of gastric ulcer bleed. * Protonix to bid dosing rather than gtt per GI * Continue Carafate. * Continue clears. Progress diet per GI. Respiratory - * Has not required O2. * Continue to monitor pulse oximetry. * Continue to monitor for posttransfusion reaction (i.e. TRALI/TACO). * Last transfusion nearly 24 hours ago. RENAL/LYTES - * Adequate PO intake. * Monitor I&Os * Replace Lytes as needed. Neuro - * No complaints of pain at this point. * Continue to monitor for any changes. Cardiac - * No continued tachycardia. * Likely will not need telemetry s/p ICU transfer. ID - * No fevers. * No indication for antibiotics at this point. * Will continue to monitor for signs/symptoms of infection. ENDO - * Continue to monitor BSGs - ISS as needed. LINES/IV ACCESS - * 2 Large bore PIVs intact. No need for CVL at this point. DVT PROPHYLAXIS - * SCDs in place. * OOB w/ ambulation when cleared by GI. Given the patient's stable H&H with 2 subsequent draws, we suspect that bleeding has subsided this point. Patient likely does not require further ICU inpatient status at this point. Patient may be downgraded from the ICU at this point. This to be billed as a level V and patient note. Thank you for this consultation allow us to be part of this patient's care. Please refer to my attending physician's documentation for any further recommendations. Attending note, for further details refer to the above note of my colleague MIA Woodall. the pt seen , examined independently, chart reviewed with the staff on rounds. no events overnight, Hct remained stable at 29 post transfusion. VSS, S1S2 RRR, lungs are clear, abdomen is benign, CCE. neuro is non focal. A/P: 1- GIB, s/p EGD with cauthery. 2- Hx of NOEMI s/p partial gastrectomy. Plan: 1- continue PPI, ? changing it to PO. 2- oral intake. 3- dc IVF. 4- dc ativan. 5- disposition to regular floor if Ok with GI. 6- venodyne boots. 7- discussed with the pt in details all his questions answered. CCT 35 min. Consults & Procedures Consultants: Gastroenterology Procedures: None at this point. Data Medications: Current Inpatient Medications Medications (Trade) Dose Ordered Sig/Esther Route Start Time Stop Time Status Last Admin Dose Admin Morphine Sulfate (MoRPHine SULFATE INJ) 4 mg Q2H PRN IV 12/04/16 22:00 12/18/16 21:59 Pantoprazole Sodium 40 mg/ Dextrose 100 ml @ 20 mls/hr Q5H IV 12/05/16 02:15 01/04/17 02:14 12/06/16 05:22 20 MLS/HR Sucralfate (Carafate Susp) 1 gm QID PO 12/05/16 17:00 01/04/17 16:59 12/06/16 08:33 1 GM Vital Signs: Date Time Temp Pulse Resp B/P (MAP) Pulse Ox O2 Delivery O2 Flow Rate FiO2 12/06/16 10:18 72 16 118/76 (90) 95 Room Air 12/06/16 08:00 36.8 67 18 119/77 (91) 97 Room Air 12/06/16 08:00 Room Air 12/06/16 06:00 67 110/76 (87) 95 Room Air 12/06/16 06:00 67 110/76 (81) 95 12/06/16 05:00 64 112/71 (80) 95 12/06/16 04:00 67 106/61 (67) 94 12/06/16 04:00 36.7 67 106/61 (76) 94 Room Air 12/06/16 04:00 Room Air 12/06/16 03:00 77 101/64 (74) 94 12/06/16 02:00 67 121/77 (91) 95 12/06/16 02:00 67 121/77 (92) 95 12/06/16 01:00 68 15 110/71 (80) 94 12/06/16 00:01 36.9 71 114/68 (83) 95 Room Air 12/06/16 00:01 36.9 71 114/68 95 12/05/16 23:59 95 Room Air 12/05/16 23:00 69 114/71 (75) 95 12/05/16 22:00 78 14 112/72 (82) 95 12/05/16 22:00 78 112/72 (85) 95 Room Air 12/05/16 21:00 82 115/77 (82) 95 12/05/16 20:00 67 107/75 (83) 96 12/05/16 20:00 36.9 67 15 107/75 96 12/05/16 20:00 36.9 67 15 107/75 (86) 96 Room Air 12/05/16 20:00 95 Room Air 12/05/16 20:00 36.9 67 15 107/75 96 12/05/16 19:30 80 113/65 96 12/05/16 19:00 36.8 83 16 103/65 97 12/05/16 19:00 83 103/65 97 12/05/16 19:00 36.8 83 103/65 97 12/05/16 18:45 36.9 79 18 120/84 96 12/05/16 18:00 85 18 120/79 (93) 98 Room Air 12/05/16 17:45 78 102/67 98 12/05/16 17:15 37.1 74 16 129/68 96 12/05/16 16:30 36.9 75 16 110/76 98 12/05/16 16:00 98 Room Air 12/05/16 16:00 36.9 77 18 103/62 (76) 97 Room Air 12/05/16 15:30 36.9 73 90/66 97 12/05/16 14:57 37.1 72 18 106/70 95 12/05/16 14:00 77 18 101/67 (78) 97 Room Air 12/05/16 12:00 97 Room Air 12/05/16 12:00 37.1 83 18 118/77 (91) 97 Room Air Laboratory Results: Last 24 Hours Test 12/05/16 12:35 12/05/16 17:22 12/05/16 20:52 12/05/16 23:55 Hemoglobin 6.7 g/dL 9.6 g/dL Hematocrit 19.8 % 28.5 % Troponin I 0.018 ng/ml Hepatitis C Antibody Screen NEG Bedside Glucose 93 mg/dl 100 mg/dl Test 12/06/16 05:16 12/06/16 05:41 White Blood Count 8.93 K/uL Red Blood Count 3.38 M/uL Hemoglobin 9.7 g/dL Hematocrit 29.0 % Mean Corpuscular Volume 85.8 fL Mean Corpuscular Hemoglobin 28.7 pg Mean Corpuscular Hemoglobin Concent 33.4 g/dl Platelet Count 179 K/uL Mean Platelet Volume 11.4 fL Neutrophils (%) (Auto) 68.2 % Lymphocytes (%) (Auto) 17.5 % Monocytes (%) (Auto) 8.7 % Eosinophils (%) (Auto) 4.7 % Basophils (%) (Auto) 0.6 % Neutrophils # (Auto) 6.09 K/uL Lymphocytes # (Auto) 1.56 K/uL Monocytes # (Auto) 0.78 K/uL Eosinophils # (Auto) 0.42 K/uL Basophils # (Auto) 0.05 K/uL RDW Standard Deviation 44.2 fL RDW Coefficient of Variation 14.2 % Immature Granulocyte % (Auto) 0.3 % Immature Granulocyte # (Auto) 0.03 K/uL Nucleated RBC Absolute Count (auto) 0.02 K/uL Nucleated Red Blood Cells % 0.3 % Sodium Level 142 mmol/L Potassium Level 3.5 mmol/L Chloride Level 107 mmol/L Carbon Dioxide Level 30 mmol/L Anion Gap 5.0 mmol/L Blood Urea Nitrogen 12 mg/dl Creatinine 0.79 mg/dl Est Creatinine Clear Calc Drug Dose 120.1 ml/min Estimated GFR () 119.7 Estimated GFR (Non- 103.2 BUN/Creatinine Ratio 15.1 Random Glucose 94 mg/dl Calcium Level 8.1 mg/dl Phosphorus Level 4.0 mg/dl Magnesium Level 2.1 mg/dl Bedside Glucose 92 mg/dl Problem Qualifiers (1) Hypotension: Hypotension type: unspecified hypotension type Qualified Codes: I95.9 - Hypotension, unspecified (2) GI bleed: GI bleed type/associated pathology: unspecified gastrointestinal hemorrhage type Qualified Codes: K92.2 - Gastrointestinal hemorrhage, unspecified
--- NOTE | 2016-12-06 11:50 | Gastroenterology Progress Note ---
Progress Note Date of Service: Dec 06, 2016 Subjective Pt evaluation today including: conversation w/ patient, physical exam, lab review, review of studies Patient is a 50 yo male who is hospitalized with anemia and was found to have ulcerations around the gastroduodenal anastomosis. The patient reports that he is feeling well at present. He denies melena. He denies epigastric pain. He is on a Protonix drip at present. He offers no further complaints. His hemoglobin/hematocrit is presently 9.7/29.0. Review of Systems Constitutional: No fever, No chills Respiratory: No cough, No dyspnea on exertion Cardiac: No chest pain Abdomen: No pain, No nausea, No vomiting, No diarrhea, No constipation, No GI bleeding Musculoskeletal: No joint pain Psych: No problem reported Skin: No problem reported Medications Current Inpatient Medications Medications (Trade) Dose Ordered Sig/Esther Route Start Time Stop Time Status Last Admin Dose Admin Morphine Sulfate (MoRPHine SULFATE INJ) 4 mg Q2H PRN IV 12/04/16 22:00 12/18/16 21:59 Pantoprazole Sodium 40 mg/ Dextrose 100 ml @ 20 mls/hr Q5H IV 12/05/16 02:15 01/04/17 02:14 12/06/16 05:22 20 MLS/HR Sucralfate (Carafate Susp) 1 gm QID PO 12/05/16 17:00 01/04/17 16:59 12/06/16 08:33 1 GM Objective Vital Signs Date Time Temp Pulse Resp B/P (MAP) Pulse Ox O2 Delivery O2 Flow Rate FiO2 12/06/16 10:18 72 16 118/76 (90) 95 Room Air 12/06/16 08:00 36.8 67 18 119/77 (91) 97 Room Air 12/06/16 08:00 Room Air 12/06/16 08:00 Room Air 12/06/16 06:00 67 110/76 (87) 95 Room Air 12/06/16 06:00 67 110/76 (81) 95 12/06/16 05:00 64 112/71 (80) 95 12/06/16 04:00 67 106/61 (67) 94 12/06/16 04:00 36.7 67 106/61 (76) 94 Room Air 12/06/16 04:00 Room Air 12/06/16 03:00 77 101/64 (74) 94 12/06/16 02:00 67 121/77 (91) 95 12/06/16 02:00 67 121/77 (92) 95 12/06/16 01:00 68 15 110/71 (80) 94 12/06/16 00:01 36.9 71 114/68 (83) 95 Room Air 12/06/16 00:01 36.9 71 114/68 95 12/05/16 23:59 95 Room Air 12/05/16 23:00 69 114/71 (75) 95 12/05/16 22:00 78 14 112/72 (82) 95 12/05/16 22:00 78 112/72 (85) 95 Room Air 12/05/16 21:00 82 115/77 (82) 95 12/05/16 20:00 67 107/75 (83) 96 12/05/16 20:00 36.9 67 15 107/75 96 12/05/16 20:00 36.9 67 15 107/75 (86) 96 Room Air 12/05/16 20:00 95 Room Air 12/05/16 20:00 36.9 67 15 107/75 96 12/05/16 19:30 80 113/65 96 12/05/16 19:00 36.8 83 16 103/65 97 12/05/16 19:00 83 103/65 97 12/05/16 19:00 36.8 83 103/65 97 12/05/16 18:45 36.9 79 18 120/84 96 12/05/16 18:00 85 18 120/79 (93) 98 Room Air 12/05/16 17:45 78 102/67 98 12/05/16 17:15 37.1 74 16 129/68 96 12/05/16 16:30 36.9 75 16 110/76 98 12/05/16 16:00 98 Room Air 12/05/16 16:00 36.9 77 18 103/62 (76) 97 Room Air 12/05/16 15:30 36.9 73 90/66 97 12/05/16 14:57 37.1 72 18 106/70 95 12/05/16 14:00 77 18 101/67 (78) 97 Room Air 12/05/16 12:00 97 Room Air 12/05/16 12:00 37.1 83 18 118/77 (91) 97 Room Air Physical Exam General Appearance: WD/WN, no apparent distress Eyes: normal inspection, PERRL Respiratory/Chest: lungs clear, normal breath sounds Cardiovascular: regular rate, rhythm, no edema Abdomen: normal bowel sounds, non tender, soft Extremities: non-tender Neurologic/Psych: alert, normal mood/affect, oriented x 3 Skin: normal color Laboratory Results Last 24 Hours Test 12/05/16 12:35 12/05/16 17:22 12/05/16 20:52 12/05/16 23:55 Hemoglobin 6.7 g/dL 9.6 g/dL Hematocrit 19.8 % 28.5 % Troponin I 0.018 ng/ml Hepatitis C Antibody Screen NEG Bedside Glucose 93 mg/dl 100 mg/dl Test 12/06/16 05:16 12/06/16 05:41 White Blood Count 8.93 K/uL Red Blood Count 3.38 M/uL Hemoglobin 9.7 g/dL Hematocrit 29.0 % Mean Corpuscular Volume 85.8 fL Mean Corpuscular Hemoglobin 28.7 pg Mean Corpuscular Hemoglobin Concent 33.4 g/dl Platelet Count 179 K/uL Mean Platelet Volume 11.4 fL Neutrophils (%) (Auto) 68.2 % Lymphocytes (%) (Auto) 17.5 % Monocytes (%) (Auto) 8.7 % Eosinophils (%) (Auto) 4.7 % Basophils (%) (Auto) 0.6 % Neutrophils # (Auto) 6.09 K/uL Lymphocytes # (Auto) 1.56 K/uL Monocytes # (Auto) 0.78 K/uL Eosinophils # (Auto) 0.42 K/uL Basophils # (Auto) 0.05 K/uL RDW Standard Deviation 44.2 fL RDW Coefficient of Variation 14.2 % Immature Granulocyte % (Auto) 0.3 % Immature Granulocyte # (Auto) 0.03 K/uL Nucleated RBC Absolute Count (auto) 0.02 K/uL Nucleated Red Blood Cells % 0.3 % Sodium Level 142 mmol/L Potassium Level 3.5 mmol/L Chloride Level 107 mmol/L Carbon Dioxide Level 30 mmol/L Anion Gap 5.0 mmol/L Blood Urea Nitrogen 12 mg/dl Creatinine 0.79 mg/dl Est Creatinine Clear Calc Drug Dose 120.1 ml/min Estimated GFR () 119.7 Estimated GFR (Non- 103.2 BUN/Creatinine Ratio 15.1 Random Glucose 94 mg/dl Calcium Level 8.1 mg/dl Phosphorus Level 4.0 mg/dl Magnesium Level 2.1 mg/dl Bedside Glucose 92 mg/dl Assessment and Plan Patient is a 50 yo male with gastroduodenal ulcers and anemia. His H/H is stable at present and the patient has no further signs of active bleeding. 1) Continue Protonix infusion for a total of 72 hours. Plan to transition to Protonix 40 mg BID at discharge. 2) EGD in 12 weeks for reevaluation. 3) Diet advancement as tolerated. 4) Supportive care per primary team. Thank you for allowing us to participate in the care of this patient. If you should have any further questions or concerns, do not hesitate to contact us. Agree with MIA Sutton as above Abd: Soft, NT, ND, +BS Doing very well Advance diet as tolerated If no overt GI bleeding and H/H is stable can be discharged late tomorrow afternoon on twice daily PPI and 10 day course of Carafate 1g PO QID AC and HS
[2016-12-07] MEDS: PANTOprazole INJ 40 MG in DEXTROSE 5% 100ML IV SCH ×2 (04:10→09:17)
[2016-12-07 07:04] VITALS: BP 115/80; PULSE 76; TEMP 36.6; O2SAT 96
[2016-12-07 08:04] LABS: BASO % 0.6 %; BASO ABS # 0.04 K/uL (0-0.2); COMPLETE YES; IG% 0.5 %; LYMPH % 22.6 %; LYMPH ABS # 1.49 K/uL (1.2-3.4); MEAN CELL VOLUME 85.8 fL (80-100); MEAN CORPUSCULAR HEMOGLOBIN 29.6 pg (25-34); MEAN CORPUSCULAR HGB CONC 34.5 g/dl (32-36); MONO % 8.8 %; NEUT % 57.5 %; PLATELET COUNT 227 K/uL (130-400); RED BLOOD COUNT 3.38 M/uL (4.7-6.1); WHITE BLOOD COUNT 6.59 K/uL (4.8-10.8)
[2016-12-07 08:40] LABS: BUN/CREATININE RATIO 14.4 (10-20); CALCIUM 8.4 mg/dl (8.5-10.1); CREATININE 0.79 mg/dl (0.60-1.40); MAGNESIUM 2.1 mg/dl (1.8-2.4); PHOSPHORUS 4.1 mg/dl (2.5-4.9); POTASSIUM 3.4 mmol/L (3.5-5.1)
[2016-12-07] MEDS: SUCRALFATE 1 GM/10 ML UDC PO SCH (09:18)
[2016-12-07] MEDS ORDERED: SUCR1TAB PO (10:39)
--- NOTE | 2016-12-07 10:41 | Discharge Instructions ---
Discharge Instructions Date of Service Dec 07, 2016. Admission Reason for Admission: Gi Bleed Discharge Discharge Diagnosis / Problem: GI bleed Discharge Goals Goal(s): Decrease discomfort, Improve function, Increase independence, Improve disease control, Diagnostic testing, Therapeutic intervention, Prevent Disease Progression Activity Recommendations Activity Limitations: resume your previous activity Exercise/Sports Limitations: as tolerated Shower/Bathe: no limitations . Instructions / Follow-Up Instructions / Follow-Up Patient to be discharged home Will need to take protonix 40 mg tablet twice a day Will also need to take sucralfate 1 gram tablet four times a day for 10 days Please follow up with Dr Min in 12 weeks for repeat endoscopy If worsening abdominal pain, fevers, chills, bleeding in stools or coughing up blood please report to ER Current Hospital Diet Patient's current hospital diet: Regular Diet Discharge Diet Recommended Diet: Regular Diet Procedures Procedures Performed: Esophagogastroduodenoscopy Pending Studies Studies pending at discharge: no Medical Emergencies . Who to Call and When: Medical Emergencies: If at any time you feel your situation is an emergency, please call 911 immediately. . Non-Emergent Contact Non-Emergency issues call your: Primary Care Provider Call Non-Emergent contact if: you have a fever, your pain is worsening . . "Provider Documentation" section prepared by Moe Conteh. . VTE Core Measure Inpt VTE Proph given/why not?: SCD's, Contraindicated
[2016-12-07 11:01] VITALS: BP 115/80; PULSE 76; TEMP 36.6; O2SAT 96
--- NOTE | 2016-12-07 11:28 | Progress Note ---
Subjective Date of Service: Dec 06, 2016. Subjective Pt evaluation today including: conversation w/ patient, physical exam, chart review, lab review, review of studies, review of inpatient medication list Problem List Medical Problems: (1) GI bleed Status: Acute (2) Hypotension Status: Acute (3) Severe anemia Status: Acute (4) Upper GI bleed Status: Acute (5) Upper GI bleed Status: Acute Review of Systems Constitutional: No fever, No chills Respiratory: No cough, No sputum, No wheezing, No shortness of breath Cardiac: No chest pain, No orthopnea, No PND, No edema Abdomen: + constipation, No pain, No nausea, No vomiting, No GI bleeding Musculoskeletal: No joint pain, No swelling, No calf pain Male : No dysuria, No urinary frequency, No incontinence, No slowing stream Neurologic: No memory loss, No paralysis, No weakness, No numbness/tingling Psychiatric: No depression symptoms, No anhedonism, No anxiety, No insomnia Endo: No fatigue, No excessive thirst Skin: No rash, No itch Objective Vital Signs Date Time Temp Pulse Resp B/P (MAP) Pulse Ox O2 Delivery O2 Flow Rate FiO2 12/07/16 11:01 36.6 76 20 96 Room Air 12/07/16 08:00 Room Air 12/07/16 07:04 36.6 76 20 115/80 (92) 96 Room Air 12/07/16 00:21 Room Air 12/06/16 23:31 37.0 70 20 130/85 (100) 97 Room Air 12/06/16 16:00 98 Room Air 12/06/16 14:37 37.0 78 18 126/86 (99) 98 12/06/16 12:00 Room Air 12/06/16 12:00 37.0 73 18 122/86 (98) 97 Room Air Physical Exam General Appearance: WD/WN, no apparent distress Neck: supple, no adenopathy, thyroid normal Respiratory/Chest: chest non-tender, lungs clear, normal breath sounds, no respiratory distress Cardiovascular: regular rate, rhythm, no edema, no gallop, no JVD Abdomen: normal bowel sounds, non tender, soft, no organomegaly Neurologic/Psychiatric: no motor/sensory deficits, alert, normal mood/affect, oriented x 3 Laboratory Results Last 24 Hours Test 12/06/16 16:37 12/06/16 20:48 12/07/16 07:07 12/07/16 07:16 Bedside Glucose 101 mg/dl 107 mg/dl 103 mg/dl White Blood Count 6.59 K/uL Red Blood Count 3.38 M/uL Hemoglobin 10.0 g/dL Hematocrit 29.0 % Mean Corpuscular Volume 85.8 fL Mean Corpuscular Hemoglobin 29.6 pg Mean Corpuscular Hemoglobin Concent 34.5 g/dl Platelet Count 227 K/uL Mean Platelet Volume 11.0 fL Neutrophils (%) (Auto) 57.5 % Lymphocytes (%) (Auto) 22.6 % Monocytes (%) (Auto) 8.8 % Eosinophils (%) (Auto) 10.0 % Basophils (%) (Auto) 0.6 % Neutrophils # (Auto) 3.79 K/uL Lymphocytes # (Auto) 1.49 K/uL Monocytes # (Auto) 0.58 K/uL Eosinophils # (Auto) 0.66 K/uL Basophils # (Auto) 0.04 K/uL RDW Standard Deviation 43.4 fL RDW Coefficient of Variation 14.0 % Immature Granulocyte % (Auto) 0.5 % Immature Granulocyte # (Auto) 0.03 K/uL Sodium Level 141 mmol/L Potassium Level 3.4 mmol/L Chloride Level 106 mmol/L Carbon Dioxide Level 28 mmol/L Anion Gap 7.0 mmol/L Blood Urea Nitrogen 11 mg/dl Creatinine 0.79 mg/dl Est Creatinine Clear Calc Drug Dose 120.1 ml/min Estimated GFR () 119.7 Estimated GFR (Non- 103.2 BUN/Creatinine Ratio 14.4 Random Glucose 92 mg/dl Calcium Level 8.4 mg/dl Phosphorus Level 4.1 mg/dl Magnesium Level 2.1 mg/dl Assessment and Plan 50 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 Pt was hospitalized on November 29 following an episode of coffee ground emesis and syncope. He presented to the ER light-headed and diaphoretic. He had also reported melanotic stool and anemia with an Hb of 11 was confirmed on intial labs. The pt proceeded to endoscopy where an ulcer an vascular erosion was identified at the site of a previous anastomosis. He returned home 3 days later. He began having some orthostatic symptoms one day prior and then became progressively weak, light headed and rigorous. He reports 2 days of black bowel movements. His initial hemoglobin was confirmed at 5.0. Transfued with 2 units PRBCs on and then brought to endoscopy suite, anastomotic ulceration found on EGD status post endoscopic therapy with epinephrine and heater probe. Cont PPI drip for 3 days total, GI recs carafate 1 gram p.o. q.i.d. a.c. and at bedtime for 10 days. He will need a repeat endoscopy in approximately 12 weeks for further evaluation and to ensure ulcer healing. Full code - SCDs
--- NOTE | 2016-12-07 11:30 | Discharge Summary ---
Discharge Summary Date of Service Dec 07, 2016. Discharge Summary Admission Date: Dec 04, 2016 at 22:04 Discharge Date: Dec 07, 2016 Discharge Disposition: Home Principal Diagnosis: GI bleed Immunizations: Have You Had Influenza Vaccine: Unknown History of Tetanus Vaccine?: Yes History of Pneumococcal: No History of Hepatitis B Vaccine: Unknown Consultations: Dr Min - GI Medication Reconciliation New Medications: Sucralfate (Sucralfate) 1 Gm Tab 1 GM PO Q6 for 10 Days, #40 TAB Continued Medications: Cyanocobalamin (Vitamin B12) 1,000 Mcg Tab 1000 MG PO DAILY Ferrous Sulfate (Kp Ferrous Sulfate) 325 Mg Tab 650 MG PO BID for 30 Days, #120 TAB 3 Refills Omeprazole (Prilosec) 40 Mg Cap 40 MG PO BID, CAP Discharge Exam Review of Systems: Constitutional: No chills, No sweats, No weight loss, No weakness ENT: No unusual epistaxis, No nasal symptoms, No sore throat, No tinnitus Respiratory: No sputum, No wheezing, No shortness of breath, No dyspnea on exertion Cardiovascular: No chest pain, No orthopnea, No PND, No edema Abdomen: No pain, No nausea, No vomiting, No diarrhea, No GI bleeding Musculoskeletal: No joint pain, No muscle pain, No swelling, No calf pain Genitourinary - Male: No hematuria, No dysuria, No urinary frequency, No urinary urgency Neurologic: No memory loss, No paralysis, No weakness, No numbness/tingling Psychiatric: No depression symptoms, No anhedonism, No anxiety, No insomnia Endocrine: No fatigue, No excessive thirst, No excessive urination Physical Exam: General Appearance: WD/WN, no apparent distress Eyes: normal inspection, PERRL, EOMI, sclerae normal Neck: supple, no adenopathy, thyroid normal, no JVD Respiratory/Chest: chest non-tender, lungs clear, normal breath sounds, no respiratory distress Abdomen / GI: normal bowel sounds, non tender, soft, no organomegaly Extremities: normal inspection, no calf tenderness, normal capillary refill , no pedal edema Neurologic/Psychiatric: no motor/sensory deficits, alert, normal mood/affect , oriented x 3 Skin: normal color, warm/dry, no rash Lymphatic: no adenopathy Hospital Course 50 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 Pt was hospitalized on [place] [address] following an episode of coffee ground emesis and syncope. He presented to the ER light-headed and diaphoretic. He had also reported melanotic stool and anemia with an Hb of 11 was confirmed on intial labs. The pt proceeded to endoscopy where an ulcer an vascular erosion was identified at the site of a previous anastomosis. He returned home 3 days later. He began having some orthostatic symptoms one day prior and then became progressively weak, light headed and rigorous. He reports 2 days of black bowel movements. His initial hemoglobin was confirmed at 5.0. Transfused with 2 units PRBCs on 12/04/16 and then brought to endoscopy suite, anastomotic ulceration found on EGD status post endoscopic therapy with epinephrine and heater probe. Hg remained stable discahrged on 12/07/16 hg at 10. Discharge on protonix 40 mg PO BIDl, GI recs carafate 1 gram p.o. q.i.d. for 10 days. He will need a repeat endoscopy in approximately [address] Min for reassessment. Full code - SCDs Total Time Spent: Greater than 30 minutes This includes examination of the patient, discharge planning, medication reconciliation, and communication with other providers. Discharge Instructions Please refer to the electronic Patient Visit Report (Discharge Instructions) for additional information. Additional Copies To Kyrie Romero M.D.
== END 2016-12-07 12:00 | disposition home or self-care (01) | DRG 378 ==
LOC: C.EDB 20:50 → C.MSICU 22:04 → ENRESERV 22:21 → C.MS2W 12-06 14:19
PROVIDERS: ADMIT Internal Medicine; ATTEND Hospitalist
PROC: 0W3P8ZZ Control Bleeding in Gastrointestinal Tract, Via Natural or Artificial Opening Endoscopic (ICD-10-PCS; principal; 2016-12-04 22:30)
DX: K92.2 Gastrointestinal hemorrhage, unspecified (principal); D62 Acute posthemorrhagic anemia; C49.A0 Gastrointestinal stromal tumor, unspecified site; I95.9 Hypotension, unspecified; K92.1 Melena; R55 Syncope and collapse; R00.0 Tachycardia, unspecified; Z90.3 Acquired absence of stomach [part of]; Z79.899 Other long term (current) drug therapy

== ENCOUNTER → 2016-12-12 | Outpatient (CLI) | payer OTHER ==
[~2016-12-12] MED LIST changes: +FERR1TAB13 PO; -FRRS300 PO; +OMEP40CA41 PO; -PRT/20 PO; -PRT40 PO; +SUCR1TAB PO
[2016-12-12 11:25] LABS: BASO % 1.3 %; BASO ABS # 0.07 K/uL (0-0.2); COMPLETE YES; EOS % 7.1 %; HEMATOCRIT 34.8 % (42-52); IG% 0.4 %; LYMPH % 26.8 %; MEAN CELL VOLUME 87.2 fL (80-100); MEAN CORPUSCULAR HEMOGLOBIN 29.1 pg (25-34); MEAN CORPUSCULAR HGB CONC 33.3 g/dl (32-36); MEAN PLATELET VOLUME 10.7 fL (7.4-10.4); MONO % 6.1 %; NEUT % 58.3 %; PLATELET COUNT 433 K/uL (130-400); RED BLOOD COUNT 3.99 M/uL (4.7-6.1)
[2016-12-12 11:50] LABS: BLOOD UREA NITROGEN 17 mg/dl (7-18); BUN/CREATININE RATIO 20.8 (10-20); CALCIUM 8.9 mg/dl (8.5-10.1); CARBON DIOXIDE 27 mmol/L (21-32); CHLORIDE 106 mmol/L (98-107); GLUCOSE 103 mg/dl (70-99); POTASSIUM 3.9 mmol/L (3.5-5.1); SODIUM 140 mmol/L (136-145)
[2016-12-12 11:55] LABS: FERRITIN 10.8 ng/ml (8.0-388.0)
== END | disposition home or self-care (01) ==
LOC: C.LABBC 08:36
PROVIDERS: ATTEND Internal Medicine
DX: D64.9 Anemia, unspecified (principal)

== ENCOUNTER → 2017-03-14 | Outpatient (CLI) | payer OTHER ==
[~2017-03-14] MED LIST changes: -FERR1TAB13 PO; +IRON PO; -SUCR1TAB PO
[2017-03-14 09:33] LABS: BASO ABS # 0.06 K/uL (0-0.2); COMPLETE YES; HEMATOCRIT 47.8 % (42-52); IG% 0.2 %; LYMPH % 28.7 %; LYMPH ABS # 1.65 K/uL (1.2-3.4); MEAN CELL VOLUME 83.4 fL (80-100); MEAN CORPUSCULAR HEMOGLOBIN 28.6 pg (25-34); MEAN CORPUSCULAR HGB CONC 34.3 g/dl (32-36); MEAN PLATELET VOLUME 12.4 fL (7.4-10.4); MONO % 7.8 %; NEUT % 55.3 %; PLATELET COUNT 232 K/uL (130-400); RED BLOOD COUNT 5.73 M/uL (4.7-6.1); WHITE BLOOD COUNT 5.74 K/uL (4.8-10.8)
[2017-03-14 10:04] LABS: ALT/SGPT 39 U/L (12-78); AST/SGOT 20 U/L (15-37); BLOOD UREA NITROGEN 17 mg/dl (7-18); BUN/CREATININE RATIO 20.4 (10-20); CALCIUM 8.8 mg/dl (8.5-10.1); CARBON DIOXIDE 25 mmol/L (21-32); CHLORIDE 105 mmol/L (98-107); CREATININE 0.85 mg/dl (0.60-1.40); GLUCOSE 88 mg/dl (70-99); POTASSIUM 3.6 mmol/L (3.5-5.1); SODIUM 139 mmol/L (136-145)
[2017-03-14 10:09] LABS: ALKALINE PHOSPHATASE 99 U/L (45-117); CHOLESTEROL 187 mg/dl (0-200); CHOLESTEROL/HDL RATIO 3.1; HDL CHOLESTEROL 61 mg/dl; LDL CHOLESTEROL CALCULATED 113 mg/dl; PROSTATE SPECIFIC ANTIGEN 0.734 ng/ml (0.000-4.000); TRIGLYCERIDES 64 mg/dl (0-150); VERY LOW DENSITY LIPOPROT CALC 13 mg/dl
== END | disposition home or self-care (01) ==
LOC: C.LAB1850 07:46
PROVIDERS: ATTEND Internal Medicine
DX: C49.A0 Gastrointestinal stromal tumor, unspecified site (principal); D64.9 Anemia, unspecified; Z12.5 Encounter for screening for malignant neoplasm of prostate; Z13.220 Encounter for screening for lipoid disorders

== ENCOUNTER → 2017-05-26 | Outpatient (CLI) | payer OTHER ==
[2017-05-30 08:38] LABS: HEPATITIS C VIRAL RNA BY PCR <15 NOT DETECTED IU/ML (<15); HEPATITIS C VIRAL RNA(LOG) PCR <1.18 NOT DETECTED LOG IU/ML (<1.18)
== END | disposition home or self-care (01) ==
LOC: C.LABBC 12:00
PROVIDERS: ATTEND Physician Assistant
DX: Z11.59 Encounter for screening for other viral diseases (principal)

== ENCOUNTER → 2017-07-27 | Outpatient (CLI) | payer OTHER ==
[2017-07-27 11:06] LABS: HEMATOCRIT 47.6 % (42-52); HEMOGLOBIN 16.6 g/dL (14.0-18.0); MEAN CELL VOLUME 86.2 fL (80-100); MEAN CORPUSCULAR HEMOGLOBIN 30.1 pg (25-34); MEAN CORPUSCULAR HGB CONC 34.9 g/dl (32-36); MEAN PLATELET VOLUME 11.8 fL (7.4-10.4); PLATELET COUNT 273 K/uL (130-400); RED CELL DISTRIBUTION WIDTH CV 12.7 % (11.5-14.5); RED CELL DISTRIBUTION WIDTH SD 40.5 fL (36.4-46.3)
[2017-07-27 11:12] LABS: ALBUMIN 4.2 gm/dl (3.4-5.0); ALT/SGPT 35 U/L (12-78); AST/SGOT 22 U/L (15-37); BLOOD UREA NITROGEN 16 mg/dl (7-18); CALCIUM 9.6 mg/dl (8.5-10.1); CARBON DIOXIDE 28 mmol/L (21-32); CREATININE 0.86 mg/dl (0.60-1.40); GLUCOSE 98 mg/dl (70-99); POTASSIUM 4.1 mmol/L (3.5-5.1); SODIUM 137 mmol/L (136-145)
[2017-07-27 11:15] LABS: ALKALINE PHOSPHATASE 106 U/L (45-117); TOTAL PROTEIN 8.3 gm/dl (6.4-8.2)
== END | disposition home or self-care (01) ==
LOC: C.LAB1850 09:03
PROVIDERS: ATTEND Internal Medicine
DX: R19.5 Other fecal abnormalities (principal)

== ENCOUNTER → 2017-08-02 | Outpatient (CLI) | payer OTHER ==
--- NOTE | 2017-08-02 07:39 | DIAGNOSTIC IMAGING REPORT ---
BILIARY ULTRASOUND CLINICAL HISTORY: [facility] COLORED STOOLS COMPARISON STUDY: 05/03/2015 FINDINGS: The pancreas was obscured. No hepatic masses are visualized. There is no ductal dilatation. The common bile duct measured 5 mm. Multiple small gallbladder calculi are visualized. There is no significant wall thickening. There is no right-sided hydronephrosis. IMPRESSION: 1. Cholelithiasis. No evidence of ductal dilatation 2. Nondiagnostic evaluation of the pancreas Electronically signed by: Aneesh Flores M.D. 08/02/2017 7:38 AM Dictated Date/Time: 08/02/2017 7:37 AM
== END | disposition home or self-care (01) ==
LOC: C.ULTR 06:42
PROVIDERS: ATTEND Internal Medicine
DX: K80.20 Calculus of gallbladder without cholecystitis without obstruction (principal); R19.5 Other fecal abnormalities

== ENCOUNTER 2017-08-08 18:00 | Emergency (ER) | payer OTHER ==
[~2017-08-08] VITALS: Ht 182.9 cm; Wt 81.5 kg
[2017-08-08 18:09] VITALS: TEMP 36.7; Ht 182.9 cm; Wt 81.5 kg
[2017-08-08] MEDS ORDERED: SODIUM CHLORIDE 0.9% 1000ML 500 ML IV STA (18:31)
[2017-08-08 19:23] LABS: BASO % 0.8 %; BASO ABS # 0.05 K/uL (0-0.2); EOS % 3.6 %; EOS ABS # 0.22 K/uL (0-0.5); HEMATOCRIT 42.7 % (42-52); HEMOGLOBIN 14.9 g/dL (14.0-18.0); IG# 0.01 K/uL (0.00-0.02); LYMPH ABS # 1.46 K/uL (1.2-3.4); MEAN CELL VOLUME 85.1 fL (80-100); MEAN CORPUSCULAR HEMOGLOBIN 29.7 pg (25-34); MEAN CORPUSCULAR HGB CONC 34.9 g/dl (32-36); MEAN PLATELET VOLUME 11.1 fL (7.4-10.4); MONO % 8.4 %; MONO ABS # 0.51 K/uL (0.11-0.59); NEUT ABS # 3.84 K/uL (1.4-6.5); PLATELET COUNT 226 K/uL (130-400); RED CELL DISTRIBUTION WIDTH CV 12.6 % (11.5-14.5); WHITE BLOOD COUNT 6.09 K/uL (4.8-10.8)
[2017-08-08 19:42] LABS: BLOOD UREA NITROGEN 12 mg/dl (7-18); CREATININE 0.81 mg/dl (0.60-1.40); GLUCOSE 80 mg/dl (70-99)
[2017-08-08 19:43] LABS: ALBUMIN 3.7 gm/dl (3.4-5.0); ALT/SGPT 67 U/L (12-78); CALCIUM 8.5 mg/dl (8.5-10.1); CARBON DIOXIDE 24 mmol/L (21-32); LIPASE 287 U/L (73-393); POTASSIUM 3.3 mmol/L (3.5-5.1); SODIUM 137 mmol/L (136-145)
--- NOTE | 2017-08-08 19:44 | EMERGENCY ROOM VISIT NOTE ---
History Report prepared by Roel: Obed Hutchinson Under the Supervision of: Dr. Marky Torres M.D. First contact with patient: 18:29 Chief Complaint: GI ASSESSMENT Stated Complaint: ABDOMINAL PAIN, BLACK STOOL- HX GI BLEED History of Present Illness The patient is a 51 year old male who presents to the Emergency Room with complaints of intermittent black stools that began last night. He rates his discomfort as a 1/10 in severity. The patient reports he had a resection of his stomach due to stomach cancer two years ago. He states that in November 2016 he started to experience fatigue. He reports that after testing, he found out the fatigue was due to GI bleeding that was coming from the surgical site. The patient states that he had the site cauterized and reports he has not had any issues until the past couple of weeks. The patient states that he has been experiencing fatigue and herman stools starting a couple of weeks ago. He reports that he saw Dr. Romero for these symptoms last week where he had an ultrasound done to check for bile duct issues. The patient states the ultrasound only showed some small gall stones and no other issues. He reports that since the appointment he has still been experiencing fatigue. The patient states last night he noticed he had a bowel movement with black stools. He reports he was unsure if it was due to the roasted beets he ate and decided to ignore the problem. The patient states he had two bowel movements today that had even more pronounced black stool. He reports that he is unsure if it was due to a GI bleed , which caused him to come to the ER. The patient states he is experiencing some mild abdominal discomfort. He denies any Pepto Bismol use. Source of History: patient Onset: last night Position: other (global) Symptom Intensity: 1/10 Quality: other (black stool) Timing: intermittent Associated Symptoms: + abdominal pain, + fatigue Review of Systems See HPI for pertinent positives & negatives. A total of 10 systems reviewed and were otherwise negative. Past Medical & Surgical Medical Problems: (1) Gastrointestinal stromal tumor Surgical Problems: (1) H/O abdominal surgery Family History No pertinent family history Social History Smoking Status: Never Smoker Alcohol Use: none Drug Use: none Marital Status: Housing Status: lives with family Occupation Status: employed Current/Historical Medications Scheduled Omeprazole (Prilosec), 40 MG PO BID Allergies Coded Allergies: Penicillins (Verified Allergy, Intermediate, RASH, 02/15/17) Physical Exam Vital Signs Date Time Temp Pulse Resp B/P (MAP) Pulse Ox O2 Delivery O2 Flow Rate FiO2 08/08/17 20:38 87 20 138/97 99 Room Air 08/08/17 20:32 67 08/08/17 18:09 36.7 101 17 158/117 96 Room Air Physical Exam GENERAL: Patient is in no acute distress. HEENT: No acute trauma, normocephalic atraumatic, mucous membranes moist, no nasal congestion, no scleral icterus. NECK: No stridor, no adenopathy, no meningismus, trachea is midline. LUNGS: Clear to auscultation bilaterally, no wheeze, no rhonchi, breath sounds equal. HEART: Mildly tachycardic with a regular rhythm and no murmurs. ABDOMEN: Soft, nontender, bowel sounds positive, no hernias, no peritonitis. EXTREMITIES: No cyanosis or edema, full range of motion of all the joints without pain or difficulty, no signs for acute trauma. NEUROLOGIC: Oriented x 3, no acute motor or sensory deficits, no focal weakness. SKIN: No rash, no jaundice, no diaphoresis. RECTAL: Brownish stool only scant amount present. Heme negative. Medical Decision & Procedures Laboratory Results 08/08/17 19:10 Red Blood Count 5.02, Mean Corpuscular Volume 85.1, Mean Corpuscular Hemoglobin 29.7, Mean Corpuscular Hemoglobin Concent 34.9, Mean Platelet Volume 11.1, Neutrophils (%) (Auto) 63.0, Lymphocytes (%) (Auto) 24.0, Monocytes (%) (Auto) 8.4, Eosinophils (%) (Auto) 3.6, Basophils (%) (Auto) 0.8, Neutrophils # (Auto) 3.84, Lymphocytes # (Auto) 1.46, Monocytes # (Auto) 0.51, Eosinophils # (Auto) 0.22, Basophils # (Auto) 0.05 08/08/17 19:10 Test 08/08/17 19:10 White Blood Count 6.09 K/uL (4.8-10.8) Red Blood Count 5.02 M/uL (4.7-6.1) Hemoglobin 14.9 g/dL (14.0-18.0) Hematocrit 42.7 % (42-52) Mean Corpuscular Volume 85.1 fL (80-100) Mean Corpuscular Hemoglobin 29.7 pg (25-34) Mean Corpuscular Hemoglobin Concent 34.9 g/dl (32-36) Platelet Count 226 K/uL (130-400) Mean Platelet Volume 11.1 fL (7.4-10.4) Neutrophils (%) (Auto) 63.0 % Lymphocytes (%) (Auto) 24.0 % Monocytes (%) (Auto) 8.4 % Eosinophils (%) (Auto) 3.6 % Basophils (%) (Auto) 0.8 % Neutrophils # (Auto) 3.84 K/uL (1.4-6.5) Lymphocytes # (Auto) 1.46 K/uL (1.2-3.4) Monocytes # (Auto) 0.51 K/uL (0.11-0.59) Eosinophils # (Auto) 0.22 K/uL (0-0.5) Basophils # (Auto) 0.05 K/uL (0-0.2) RDW Standard Deviation 39.0 fL (36.4-46.3) RDW Coefficient of Variation 12.6 % (11.5-14.5) Immature Granulocyte % (Auto) 0.2 % Immature Granulocyte # (Auto) 0.01 K/uL (0.00-0.02) Prothrombin Time 10.9 SECONDS (9.0-12.0) Prothromb Time International Ratio 1.0 (0.9-1.1) Activated Partial Thromboplast Time 28.0 SECONDS (21.0-31.0) Partial Thromboplastin Ratio 1.1 Anion Gap 8.0 mmol/L (3-11) Est Creatinine Clear Calc Drug Dose 115.8 ml/min Estimated GFR () 117.6 Estimated GFR (Non- 101.5 BUN/Creatinine Ratio 15.4 (10-20) Calcium Level 8.5 mg/dl (8.5-10.1) Magnesium Level 2.2 mg/dl (1.8-2.4) Total Bilirubin 1.1 mg/dl (0.2-1) Aspartate Amino Transf (AST/SGOT) 30 U/L (15-37) Alanine Aminotransferase (ALT/SGPT) 67 U/L (12-78) Alkaline Phosphatase 128 U/L (45-117) Troponin I < 0.015 ng/ml (0-0.045) Total Protein 7.5 gm/dl (6.4-8.2) Albumin 3.7 gm/dl (3.4-5.0) Globulin 3.8 gm/dl (2.5-4.0) Albumin/Globulin Ratio 1.0 (0.9-2) Lipase 287 U/L (73-393) Thyroid Stimulating Hormone (TSH) 1.040 uIu/ml (0.300-4.500) Laboratory results reviewed by me. Medications Administered Medications (Trade) Dose Ordered Sig/Esther Route Start Time Stop Time Status Last Admin Dose Admin Sodium Chloride 500 ml @ 999 mls/hr Q31M STAT IV 08/08/17 18:31 08/08/17 19:01 DC 08/08/17 18:31 999 MLS/HR ECG Per My Interpretation Indication: weakness Rate (beats per minute): 79 Rhythm: normal sinus Findings: no ectopy, other (No ST elevation, No PVCs) ED Course 1825: The patient was evaluated in room B10. A complete history and physical exam was performed. 1830: Ordered Sodium Chloride 500 ml @ 999 mls/hr IV. 2025: Reevaluated the patient. Discussed results and discharge instructions: He verbalized understanding and agreement. The patient is ready for discharge. Medical Decision The patient is a 51 year old male who presents to the Emergency Room with complaints of intermittent black stools that began last night. Differential diagnoses considered include dehydration, viral illness, GI bleeding, anemia, electrolyte imbalance, thyroid disorder, cardiac ischemia. There is no leukocytosis or concerning anemia. Rectal exam reveals brownish stool, the stool was heme-negative. No significant electrolyte abnormality, kidney failure, hepatitis or pancreatitis. There was no coagulopathy. The patient appears to be in a euthyroid state. EKG shows a sinus rhythm, no acute ischemia. Cardiac enzyme testing 1 is not consistent with acute cardiac injury. The patient is doing well, his blood pressure was high here but this may just be situational, he was worried. The patient was reassured by his testing. He is being discharged to follow with his family doctor's office. The cause for the generalized fatigue is unclear. Medication Reconcilliation Current Medication List: was personally reviewed by me Blood Pressure Screening Patient's blood pressure: Elevated blood pressure Blood pressure disposition: Elevated BP felt to be situational Impression Primary Impression: Fatigue Additional Impression: Black stools Scribe Attestation The scribe's documentation has been prepared under my direction and personally reviewed by me in its entirety. I confirm that the note above accurately reflects all work, treatment, procedures, and medical decision making performed by me. Departure Information Dispostion Home / Self-Care Referrals Kyrie Romero M.D. (PCP) Forms HOME CARE DOCUMENTATION FORM, IMPORTANT VISIT INFORMATION Patient Instructions My [facility] Additional Instructions follow with Dr. Romero blood counts were all ok today stool testing was negative for blood return if worsening as we discussed Problem Qualifiers
[2017-08-08 19:53] LABS: ALKALINE PHOSPHATASE 128 U/L (45-117); AST/SGOT 30 U/L (15-37); TOTAL PROTEIN 7.5 gm/dl (6.4-8.2)
[2017-08-08 20:38] VITALS: BP 138/97; PULSE 87; O2SAT 99
== END 2017-08-08 20:53 | disposition home or self-care (01) ==
LOC: C.EDB 18:02
DX: R53.83 Other fatigue (principal); K92.1 Melena; Z85.028 Personal history of other malignant neoplasm of stomach; Z79.899 Other long term (current) drug therapy; Z88.0 Allergy status to penicillin

== ENCOUNTER → 2017-09-21 | Outpatient (CLI) | payer OTHER ==
[~2017-09-21] MED LIST changes: -CYAN100020 PO; -IRON PO
[2017-09-21 11:02] LABS: HEMATOCRIT 44.9 % (42-52); HEMOGLOBIN 15.7 g/dL (14.0-18.0); MEAN CELL VOLUME 83.9 fL (80-100); MEAN CORPUSCULAR HEMOGLOBIN 29.3 pg (25-34); MEAN PLATELET VOLUME 11.8 fL (7.4-10.4); PLATELET COUNT 211 K/uL (130-400); RED CELL DISTRIBUTION WIDTH CV 12.5 % (11.5-14.5); RED CELL DISTRIBUTION WIDTH SD 37.7 fL (36.4-46.3); WHITE BLOOD COUNT 4.31 K/uL (4.8-10.8)
[2017-09-21 11:29] LABS: ALBUMIN 3.6 gm/dl (3.4-5.0); ALKALINE PHOSPHATASE 104 U/L (45-117); ALT/SGPT 37 U/L (12-78); AST/SGOT 23 U/L (15-37); BLOOD UREA NITROGEN 21 mg/dl (7-18); CALCIUM 8.6 mg/dl (8.5-10.1); CARBON DIOXIDE 25 mmol/L (21-32); CREATININE 0.87 mg/dl (0.60-1.40); GLUCOSE 126 mg/dl (70-99); POTASSIUM 3.7 mmol/L (3.5-5.1); SODIUM 137 mmol/L (136-145); TOTAL PROTEIN 7.4 gm/dl (6.4-8.2)
== END | disposition home or self-care (01) ==
LOC: C.LABBC 08:22
PROVIDERS: ATTEND Internal Medicine
DX: C49.A0 Gastrointestinal stromal tumor, unspecified site (principal); D64.9 Anemia, unspecified